=== PATIENT | female | born 1960 | race Caucasian/White ===

== ENCOUNTER 2017-03-12 06:06 | Inpatient (IN) ==
[2017-03-12] MEDS ORDERED: Albuterol 2.5 MG/3 ML NEBULIZER IH ONE (06:26)
[2017-03-12] MEDS ORDERED: cefOXitin 2,000 MG in Water for inj. (sterile) 10 ML IVP ONE (06:26)
[2017-03-12] MEDS ORDERED: Lidocaine -MPF 1% 2 ML VIAL ID ONE (06:26)
[2017-03-12] MEDS ORDERED: Ringers Solution, Lactated 1,000 ML IVC SCH (06:30)
--- NOTE | 2017-03-12 07:11 | Anesthesia Evaluation PreOp ---
Date of Encounter: 03/12/17 Time of Encounter: 07:10 - Past History Planned Operation: LAR with colostomy vs primary anastomosis Cardiac History: AL, HTN, Hyperlipidemia, Cardiac Stent (2004, 2005) Pulmonary History: Smoker Other Medical History: Diabetes Type II, Other (Newly diagnosed rectal cancer, started neoadjuvant therapy (chemo), psoariasis) Anesthesia History: No Prior Anesthetic Complications, Past Anesthesia (Several) Alcohol Use: none Drug use: none Medications and Allergies Aspirin 81 mg PO DAILY 10/22/16 [History] Cholecalciferol (D-3) [Vitamin D] 1,000 unit PO DAILY 10/22/16 [History] Clopidogrel [Plavix] 75 mg PO DAILY 10/22/16 [History] Duloxetine HCl [Cymbalta] 120 mg PO DAILY 10/22/16 [History] Gabapentin [Neurontin] 600 mg PO HS 10/22/16 [History] Insulin Glargine,Hum.rec.anlog [Lantus Solostar] 40 unit SQ HS PRN 10/22/16 [ History] Losartan Potassium [Cozaar] 50 mg PO DAILY 10/22/16 [History] Metformin HCl [Metformin HCl ER] 1,000 mg PO BID 10/22/16 [History] Simvastatin [Zocor] 40 mg PO HS 10/22/16 [History] Exenatide [Byetta] 5 mcg SQ BID 01/22/17 [History] 3 Allergy/AdvReac Type Severity Reaction Status Date / Time diphenhydramine Allergy Itching Verified 03/12/17 06:26 [From Benadryl] - Meds/Allergy Pre-op Review Medications Reviewed: Yes Allergies Reviewed: Yes Beta Blockers on Current Med List: No Anesthesia Results - Labs Laboratory Tests 02/15/17 02/15/17 03/04/17 14:09 14:09 16:05 Hgb 13.4 Hct 39.2 Plt Count 200 Sodium 140 Potassium 4.1 Creatinine 0.76 Hemoglobin A1c 7.9 H Calcium 9.4 - Imaging EKG: report reviewed (SINUS RHYTHM PROBABLE INFERIOR MYOCARDIAL INFARCTION, OF INDETERMINATE AGE) Additional studies: Stress test 05/2011: Inferolateral fixed defect, mild reversible anterior ischemia, gated EF 69% Heart Cath 05/2011: EF: 60% LM: 20% LAD: proximal 40%, proximal stent 40% ISS, mid stent patent CX: 30% RCA: Dominant, 30%, 40%, distal stent 30% ISS. PAV 80% Anesthesia Exam Vital Signs/O2 Sat/Glucose, Most Recent Temp Pulse Resp BP Pulse Ox 97.9 F 81 18 138/80 100 03/12/17 06:27 03/12/17 06:27 03/12/17 06:27 03/12/17 06:27 03/12/17 06:27 Blood Glucose* 183 Height: 66 in Weight: 80 Kg BMI 28 NPO (# of Hours): >8 - HEENT Mallampati: I Teeth: Normal Denture Type: Upper: Complete Oral Opening: Greater than 3 - Cardiac Rhythm: Regular - Pulmonary Breath Sounds: bilateral Clear Anesthesia Assess/Plan ASA Score: 4 Modified Fabiola Scale for Level of Consciousness: Cooperative, oriented, and tranquil Anesthetic Plan: General Monitoring Plan: Standard Monitors, A-Line, CVC (Possible) Recovery Plan: PACU Anes Supervising Prov Stmt: I have participated in the evaluation of this patient. Patient informed and consented. Risks, benefits, and alternatives discussed. Patient wishes to proceed.
[2017-03-12] MEDS ORDERED: *HR* Succinylcholine 200 MG/10 ML VIAL IVP ONE (07:15)
[2017-03-12] MEDS ORDERED: Ondansetron 4 MG/2 ML VIAL ONE (07:15)
[2017-03-12] MEDS ORDERED: *HR* Rocuronium Bromide 50 MG/5 ML VIAL ONE (07:15)
[2017-03-12] MEDS ORDERED: Dexamethasone 4 MG/ML VIAL ONE (07:15)
[2017-03-12] MEDS ORDERED: Lidocaine -MPF 4% 5 ML AMPUL ONE (07:15)
[2017-03-12] MEDS ORDERED: Lidocaine -MPF 2% 2 ML VIAL ONE (07:15)
[2017-03-12] MEDS ORDERED: *HR* Propofol 200 MG/20 ML VIAL IVP ONE (07:17)
[2017-03-12] MEDS ORDERED: *HR* FentaNYL (PF) 100 MCG/2 ML VIAL ONE (07:17)
[2017-03-12] MEDS ORDERED: *HR* Remifentanil 2 MG VIAL IVP ONE (07:17)
[2017-03-12] MEDS ORDERED: *HR* Midazolam HCl 2 MG/2 ML VIAL ONE (07:20)
[2017-03-12] MEDS ORDERED: Heparin 1,000 UNITS/500 mL NS 500 ML ONE (07:35)
--- NOTE | 2017-03-12 07:52 | History & Physical Report ---
Date of Encounter: 03/12/17 Time of Encounter: 07:52 24 Hour HP Update - Instructions Instructions: If the History and Physical is less than 30 days old and was completed prior to A.M. admission and or procedure and has NOT been updated on calendar day of procedure please complete this update prior to performing procedure. - Update Patient reports changes in Medical Condition: No Changes in examination, assessment, or condition: No Changes in Medication: No Preop tests/diagnostics Reviewed: Yes Surgery Remains Indicated: Yes Consent for Planned Operative Procedure(s) Verified: Yes - Pre-Operative Checklist Preoperative Checklist Indicated: Yes Prophylactic Antibiotic Ordered: Yes Home Medications Include Beta Jess: No
[2017-03-12] MEDS ORDERED: Ondansetron 4 MG/2 ML VIAL IVP ONE (09:24)
[2017-03-12] MEDS ORDERED: *HR* HYDROmorphone (PF) 1 MG/ML SYRINGE IVP PRN (09:24)
[2017-03-12] MEDS ORDERED: *HR* Promethazine 25 MG/ML VIAL IVP PRN (09:24)
[2017-03-12] MEDS ORDERED: *HR* HYDROmorphone 2 MG/ML SYRINGE ONE (10:44)
[2017-03-12] MEDS ORDERED: *HR* Phenylephrine 10 MG/ML VIAL ONE (10:44)
[2017-03-12] MEDS ORDERED: Neostigmine Methylsulfate 3 MG/3 ML SYRINGE ONE (12:03)
--- NOTE | 2017-03-12 12:06 | Operative Note ---
Date of procedure: 03/12/17 Pre-op diagnosis: Rectal Cancer Post-op diagnosis: same Procedure: Robotic rectal resection with diverting loop ileostomy Anesthesia: LIVAN (stephany) Surgeon: Duong Akers Estimated blood loss (cc): 5 Specimen: rectum Condition: stable Procedure in Detail: After informed consent, patient taken operating room placed supine position. After adequate sedation anesthesia patient was placed in a lithotomy position. After proper timeout a 12 mm cannula site was placed right superior to the umbilicus. Pneumoperitoneum was greater. A 13 mm cannula was placed in right lower quadrant. 5 mm camera was placed in the right upper quadrant. An 8 mm cannula was placed in subxiphoid region followed by another 8 mm in the left lower quadrant. Patient was placed in a headdown position. The robot was docked over the patient's left hip. Small bowel swept out of the pelvis. Rectosigmoid colon was then grasped and retracted cephalad. The peritoneum was then scored level of the sacral promontory. The left ureter was identified and kept on harm's way. The inferior mesenteric artery was then taken with a vessel sealer. The lateral rectosigmoid stalks were taken down the vessel sealer. The dissection was carried out down to the pelvic floor. The pelvic floor musculature was easily visualized. Rectosigmoid colon was dissected free from the retro-pubic tubercle region and the seminal vesicles were kept out of harm's way. Once it was freed a 45 mm robotic Endo staplers fired across the rectum. Once it was retracted and area was demarcated on the rectosigmoid sigmoid colon for transection. Indocyanine green was infused and we had excellent perfusion. A counterincision was made in the suprapubic region. Dissection carried down the anterior rectus sheath. The rectus muscles were then divided in the midline with Ada clamp. Once they were split the rectum and mesorectum were delivered. Good bowel clamps are used to place across the colon proximal and distal and transected. Allis clamps are placed on the bowel and then a pursestring suture device placed on the colon. 3-0 Prolene suture was passed. A pursestring sutures and created and a 33 mm EEA anvil was placed. Suture was tied and secured. Colon was then placed back in the pelvis. The stapler was passed through the anal canal and to the rectal stump and then the spear was placed through the staple line. The anvil was then connected secured and fired. There were 2 excellent donuts. A leak test revealed no leak. The distal termial ileum was brought to the right lower quadrant and a loop ileostomy was created. It was sewn to the skin with 3-0 vicryl. At that point the procedure was terminated. All incisions are closed with 0 Vicryl suture and 4-0 Vicryl suture. Marcaine was inserted in the Pfannenstiel incision. He tolerated the procedure well.
[2017-03-12] MEDS ORDERED: *HR* Dextrose 50 % in Water (Syg) 50 ML SYRINGE IVP PRN (13:33)
[2017-03-12] MEDS ORDERED: *HR* HYDROmorphone 20 MG/20 ML PCA IVC PRN (13:33)
[2017-03-12] MEDS ORDERED: Naloxone 0.4 MG/ML INJ IVP PRN (13:33)
[2017-03-12] MEDS ORDERED: Acetaminophen 325 MG TABLET PO PRN (13:33)
[2017-03-12] MEDS ORDERED: D5% in Water 1,000 ML IVC PRN (13:33)
[2017-03-12] MEDS ORDERED: Dextrose Gel 15 GM PO PRN ×2 (13:33)
[2017-03-12] MEDS ORDERED: *HR* Metoprolol 5 MG/5 ML VIAL IVP PRN (13:49)
[2017-03-12] MEDS: 0.9 % Sodium Chloride 1,000 ML IVC SCH (14:15)
[2017-03-12] MEDS: Insulin LISPRO 300 UNITS/3 ML VIAL SQ SCH ×2 (16:47→22:01)
[2017-03-12] MEDS: *HR* Metformin 500 MG TABLET PO SCH (16:53)
[2017-03-12] MEDS: Gabapentin 300 MG CAPSULE PO SCH (21:45)
[2017-03-13] MEDS: 0.9 % Sodium Chloride 1,000 ML IVC SCH (05:00)
[2017-03-13 05:56] LABS: Basophils % 0.2 %; Eosinophils % 0.1 %; Hematocrit 36.9 % (35.3-44.9); Hemoglobin 12.4 g/dL (11.5-15.4); Immature Granulocytes % 0.3 % (0-4); Lymphocytes # 0.5 K/mcL (0.6-4.6); Lymphocytes % 4.6 %; Mean Corpuscular HGB Conc 33.6 g/dL (31.6-35.5); Mean Corpuscular Hemoglobin 30.6 pg (28.0-33.3); Mean Corpuscular Volume 91.1 fL (83.0-100.0); Monocytes % 9.4 %; Platelet Count 216 K/mcL (140-400); Red Blood Count 4.05 M/mcL (3.82-4.97); Red Cell Distribution Width 13.6 % (11.5-14.5); Segmented Neutrophils % 85.4 %
[2017-03-13 06:14] LABS: BUN/Creatinine Ratio 12 (6-26); Blood Urea Nitrogen 12 mg/dL (7-20); Calcium 8.4 mg/dL (8.6-10.8); Carbon Dioxide 19 mEq/L (19-29); Chloride 110 mEq/L (98-109); Glucose 228 mg/dL (70-99); Osmolality,Calculated 295 (280-300); Potassium 3.9 mEq/L (3.5-4.5); Sodium 139 mEq/L (136-145); eGFR For African Americans > 60 (> 60); eGFR For Non-African Americans 59 (> 60)
[2017-03-13] MEDS: *HR* Metformin 500 MG TABLET PO SCH ×2 (09:01→16:32)
[2017-03-13] MEDS: Aspirin 81 MG TAB.CHEW PO SCH (09:01)
[2017-03-13] MEDS: Insulin LISPRO 300 UNITS/3 ML VIAL SQ SCH ×4 (09:06→21:48)
--- NOTE | 2017-03-13 11:20 | General Surgery Progress Note ---
Date of Encounter: 03/13/17 Time of Encounter: 11:18 - Assessment and Plan (1) Rectal cancer Current Visit: Yes Status: Acute POD1 from a robot assisted LAR with diverting loop ileostomy. Awaiting return of bowel function. On clears-continue for now. OOB to chair. Subjective Patient reports: other (The patient admits to some abdominal pain. No current nausea. Tolerating clears. ) Objective Vital Signs - Last 8 Hours Temp Pulse Resp BP Pulse Ox 03/13/17 07:38 98.5 F 96 16 160/81 97 Intake and Output 03/12/17 03/13/17 03/13/17 23:59 07:59 15:59 Intake Total 0 / 0 1000 / 1000 Output Total 400 / 400 600 / 600 Balance -400 / -400 400 / 400 Intake: IV Fluids 1000 / 1000 0.9 % Sodium Chloride 1,000 ML 1000 / 1000 @ 75 mls/hr IVC .[id number] [facility] Rx #:[id number] Oral 0 / 0 0 / 0 Output: Catheter 400 / 400 600 / 600 Other: Weight 79.515 kg Blood Glucose* 264 230 Patient Weight 03/13/17 23:59 Weight 79.515 kg - General physical appearance no distress - Abdomen Abdomen: Present: bowel sounds present (Minimal-scant. Right sided diverting loop ileostomy in place. No air or fluid present.), soft - Labs 03/13/17 05:46 03/13/17 05:46 Diabetes panel 03/13/17 Range/Units 05:46 Sodium 139 (136-145) mEq/L Potassium 3.9 (3.5-4.5) mEq/L Chloride 110 H (98-109) mEq/L Carbon Dioxide 19 (19-29) mEq/L BUN 12 (7-20) mg/dL Creatinine 0.98 (0.57-1.11) mg/dL Glucose 228 H (70-99) mg/dL Calcium 8.4 L (8.6-10.8) mg/dL Calcium panel 03/13/17 Range/Units 05:46 Calcium 8.4 L (8.6-10.8) mg/dL Pituitary panel 03/13/17 Range/Units 05:46 Sodium 139 (136-145) mEq/L Potassium 3.9 (3.5-4.5) mEq/L Chloride 110 H (98-109) mEq/L Carbon Dioxide 19 (19-29) mEq/L BUN 12 (7-20) mg/dL Creatinine 0.98 (0.57-1.11) mg/dL Glucose 228 H (70-99) mg/dL Calcium 8.4 L (8.6-10.8) mg/dL Adrenal panel 03/13/17 Range/Units 05:46 Sodium 139 (136-145) mEq/L Potassium 3.9 (3.5-4.5) mEq/L Chloride 110 H (98-109) mEq/L Carbon Dioxide 19 (19-29) mEq/L BUN 12 (7-20) mg/dL Creatinine 0.98 (0.57-1.11) mg/dL Glucose 228 H (70-99) mg/dL Calcium 8.4 L (8.6-10.8) mg/dL - VTE Documentation of Mechanical Device: Intermittent pneumatic compression device Consult Discharge Plan - Plan Referrals: Duong Akers DO [Partnered Physician] - 03/23/17 1:25 pm Heaven Cho DO [Primary Care Provider] -
[2017-03-13] MEDS: Gabapentin 300 MG CAPSULE PO SCH (21:48)
[2017-03-14] MEDS: Aspirin 81 MG TAB.CHEW PO SCH (07:56)
[2017-03-14] MEDS: *HR* Metformin 500 MG TABLET PO SCH ×2 (07:56→16:59)
[2017-03-14] MEDS: 0.9 % Sodium Chloride 1,000 ML IVC SCH ×2 (09:56)
[2017-03-14] MEDS: Insulin LISPRO 300 UNITS/3 ML VIAL SQ SCH ×4 (12:21→21:12)
--- NOTE | 2017-03-14 13:48 | General Surgery Progress Note ---
Date of Encounter: 03/14/17 Time of Encounter: 13:46 - Assessment and Plan (1) Rectal cancer Current Visit: Yes Status: Acute POD2 from a robot sigmoid colectomy with loop ileostomy. Advanced to full liquids. Will start dressing changes today as well. Continue up and out of bed to chair. Subjective Patient reports: no new complaints (Patient sitting up tolerating PO liquids. Noted leak from ostomy appliance.) Objective Vital Signs - Last 8 Hours Temp Pulse Resp BP Pulse Ox 03/14/17 12:04 98.3 F 100 16 133/65 93 03/14/17 08:17 99.3 F 103 18 162/80 97 Intake and Output 03/13/17 03/14/17 03/14/17 23:59 07:59 15:59 Intake Total 1000 / 1000 Output Total 700 / 700 550 / 550 300 / 300 Balance -700 / -700 -550 / -550 700 / 700 Intake: IV Fluids 1000 / 1000 0.9 % Sodium Chloride 1,000 ML 1000 / 1000 @ 75 mls/hr IVC .[id number] [facility] Rx #:[id number] Output: Urine 700 / 700 550 / 550 300 / 300 Other: Weight 80.9 kg Blood Glucose* 208 342 Patient Weight 03/14/17 23:59 Weight 80.9 kg - General physical appearance well nourished, no distress - Respiratory normal expansion, normal respiratory effort - Abdomen Abdomen: Present: soft, tender (Mild incisional pain to palpation. Incisions CDI. No erythema. Ostomy appliance with mild leak on the medial side. Ostomy appears pink.) - Labs 03/13/17 05:46 03/13/17 05:46 - VTE Documentation of Mechanical Device: Intermittent pneumatic compression device Consult Discharge Plan - Plan Referrals: Duong Akers DO [Partnered Physician] - 03/23/17 1:25 pm Heaven Cho DO [Primary Care Provider] -
[2017-03-14] MEDS: Gabapentin 300 MG CAPSULE PO SCH (21:12)
[2017-03-14] MEDS ORDERED: 0.9 % Sodium Chloride 500 ML ONE (23:27)
[2017-03-15] MEDS: Insulin LISPRO 300 UNITS/3 ML VIAL SQ SCH ×4 (07:52→21:15)
[2017-03-15] MEDS: Aspirin 81 MG TAB.CHEW PO SCH (07:53)
[2017-03-15] MEDS: *HR* Metformin 500 MG TABLET PO SCH ×2 (07:53→16:18)
[2017-03-15] MEDS ORDERED: *HR* HYDROmorphone 2 MG/ML SYRINGE IVP PRN (13:50)
[2017-03-15] MEDS ORDERED: *HR* OxyCODONE/APAP 10/325 TABLET PO PRN (13:50)
--- NOTE | 2017-03-15 13:55 | General Surgery Progress Note ---
Date of Encounter: 03/15/17 Time of Encounter: 13:15 - Assessment and Plan (1) Rectal cancer Current Visit: Yes Status: Acute Date of procedure: 03/12/17 Pre-op diagnosis: Rectal Cancer Post-op diagnosis: same Procedure: Robotic rectal resection with diverting loop ileostomy POD # 3 as above. No output noted from ileostomy. Abdomen is slightly distended , but she denies nausea. Discomfort is well controlled. Noted overnight she was having difficulty urinating. Modi replaced. Plan: 1. Add full liquid diet 2. Repeat labs 3. Obtain an acute abdominal series 4. stop BOX SPINNER and start PO/PRN pain meds 5. Increase IVF to 75 ml as urine in modi is concentrated; may consider bolus and/or flomax pending lab results 6. Add Reglan 7. Add colace 8. Continue GI and DVT prophylaxis 9. Consult wound care for new ostomy teaching 10. Patient may shower (2) DVT prophylaxis Current Visit: Yes Status: Acute heparin 5000 units SQ daily EPCDs while in bed Ambulate in halls TID Subjective Patient reports: no new complaints, feels better, still having pain, pain is less, tolerating liquids well, voiding w/o difficulty (per modi. ), no flatus, no bowel movement, afebrile Objective Vital Signs - Last 8 Hours Temp Pulse Resp BP Pulse Ox 03/15/17 10:52 97.7 F 102 16 137/80 95 03/15/17 08:30 94 03/15/17 07:54 98.2 F 102 16 132/76 94 Intake and Output 03/14/17 03/15/17 03/15/17 23:59 07:59 15:59 Intake Total 1000 / 1000 200 / 200 240 / 240 Output Total 0 / 0 700 / 700 150 / 150 Balance 1000 / 1000 -500 / -500 90 / 90 Intake: IV Fluids 1000 / 1000 200 / 200 0.9 % Sodium Chloride 500 ML As 200 / 200 .ROUTE .[facility]K-[facility] Rx#: [id number] 0.9 % Sodium Chloride 1,000 ML 1000 / 1000 @ 75 mls/hr IVC .[id number] [facility] Rx #:[id number] Oral 0 / 0 240 / 240 Output: Urine 0 / 0 600 / 600 Urethral (Modi) 350 / 350 Stool 0 / 0 0 / 0 Catheter 100 / 100 150 / 150 Other: Meal Dinner Lunch Percent of Meal Consumed 0% Weight 80.9 kg Blood Glucose* 232 322 168 Patient Weight 03/15/17 23:59 Weight 80.9 kg - General physical appearance no distress - Eyes normal ocular movement - ENT atraumatic, normocephalic - Neck Neck exam: trachea midline, no venous distension - Respiratory normal expansion, normal respiratory effort, clear to auscultation - Cardiovascular Cardiovascular exam: Present: tachycardia - Abdomen Abdomen: Present: bowel sounds present, soft, tender (Expected postoperative), wound (Stoma is pink and moist) Hernia: none - Incision Incision: Present: clean and dry, intact - Neurologic normal coordination, normal sensation - Musculoskeletal normal gait, normal posture - Psychiatric oriented to time, oriented to person, oriented to place, speech is normal, memory intact - Labs 03/13/17 05:46 03/13/17 05:46 - VTE Documentation of Mechanical Device: Intermittent pneumatic compression device Consult Discharge Plan - Plan Referrals: Duong Akers DO [Partnered Physician] - 03/23/17 1:25 pm Heaven Cho DO [Primary Care Provider] -
[2017-03-15] MEDS: Metoclopramide 10 MG/2 ML VIAL IVP SCH ×2 (13:59→21:17)
[2017-03-15] MEDS: 0.9 % Sodium Chloride 1,000 ML IVC SCH (14:01)
[2017-03-15 14:31] LABS: Basophils # 0.1 K/mcL (0.0-0.2); Basophils % 0.5 %; Eosinophils # 0.4 K/mcL (0.0-0.6); Eosinophils % 3.3 %; Hematocrit 39.7 % (35.3-44.9); Hemoglobin 13.1 g/dL (11.5-15.4); Immature Granulocytes % 0.4 % (0-4); Lymphocytes # 0.6 K/mcL (0.6-4.6); Lymphocytes % 5.7 %; Mean Corpuscular Volume 90.8 fL (83.0-100.0); Mean Platelet Volume 11.4 fL (9.4-12.4); Monocytes % 8.7 %; Neutrophils # 8.9 K/mcL (1.6-8.9); Platelet Count 260 K/mcL (140-400); Red Blood Count 4.37 M/mcL (3.82-4.97); Red Cell Distribution Width 13.5 % (11.5-14.5); Segmented Neutrophils % 81.4 %
[2017-03-15 14:34] LABS: Alanine Aminotransferase 9 Units/L (0-55); Albumin 2.3 g/dL (3.5-5.0); Albumin/Globulin Ratio 0.6 (1.1-2.2); Alkaline Phosphatase 66 Units/L (38-126); Aspartate Amino Transferase 8 Units/L (5-34); BUN/Creatinine Ratio 15 (6-26); Bilirubin,Total 0.4 mg/dL (0.2-1.2); Blood Urea Nitrogen 13 mg/dL (7-20); Calcium 8.8 mg/dL (8.6-10.8); Carbon Dioxide 19 mEq/L (19-29); Chloride 106 mEq/L (98-109); Globulin 3.9 g/dL (2.4-3.5); Glucose 197 mg/dL (70-99); Osmolality,Calculated 286 (280-300); Potassium 3.9 mEq/L (3.5-4.5); Sodium 135 mEq/L (136-145); Total Protein 6.2 g/dL (6.0-8.3); eGFR For African Americans > 60 (> 60); eGFR For Non-African Americans > 60 (> 60)
[2017-03-15] MEDS ORDERED: Lidocaine Jelly 11 ml Syringe TP STA (15:25)
[2017-03-15] MEDS ORDERED: Chloraseptic Spray 177 ML BOTTLE MM PRN (15:45)
[2017-03-15] MEDS: Acetaminophen IV 1,000 MG/100 ML INFUS..BTL IVPB SCH ×2 (16:14→21:08)
[2017-03-15 16:32] LABS: Bilirubin,Urine Small (Negative); Blood,Urine Negative (Negative); Clarity,Urine Turbid (Clear); Color,Urine Dark Yellow (Yellow); Glucose,Urine (UA) 500 mg/dL (Normal); Ketones,Urine 15 mg/dL (Negative); Leukocyte Esterase,Urine Negative (Negative); Nitrite,Urine Negative (Negative); PH,Urine 5.5 pH Units (5.0-8.0); Protein,Urine 100 mg/dL (Neg-Trace); Specific Gravity,Urine > 1.030 (1.010-1.025); Urobilinogen,Urine Normal (Normal)
[2017-03-15 16:49] LABS: Granular Casts,Urine Moderate per lpf (None Seen); Squamous Epithelial Cell,Urine Few per lpf (None-Few)
[2017-03-15 16:50] LABS: Amorphous Sediment,Urine Many (Few); Hyaline Casts,Urine Few per lpf (None-Few)
[2017-03-15 17:05] LABS: RBC,Urine 0-3 per hpf (0-3); WBC,Urine 0-3 per hpf (0-3)
[2017-03-15 17:22] LABS: Magnesium 1.5 mg/dL (1.6-2.6); Phosphorous 2.5 mg/dL (2.3-4.7)
[2017-03-15] MEDS: *HR* Heparin 5,000 UNIT/ML VIAL SQ SCH (17:31)
[2017-03-15] MEDS: Ketorolac 15 MG/ML VIAL IVP SCH (17:32)
[2017-03-15] MEDS: Gabapentin 300 MG CAPSULE PO SCH (21:28)
[2017-03-16] MEDS: Ketorolac 15 MG/ML VIAL IVP SCH ×4 (00:02→17:27)
[2017-03-16] MEDS: 0.9 % Sodium Chloride 1,000 ML IVC SCH ×2 (04:05→12:06)
[2017-03-16] MEDS: Acetaminophen IV 1,000 MG/100 ML INFUS..BTL IVPB SCH ×4 (04:09→23:45)
[2017-03-16 05:14] LABS: Basophils % 0.3 %; Eosinophils # 0.4 K/mcL (0.0-0.6); Eosinophils % 4.9 %; Hematocrit 34.7 % (35.3-44.9); Immature Granulocytes % 1.1 % (0-4); Immature Platelets 8.2 % (1.1-6.1); Lymphocytes # 0.5 K/mcL (0.6-4.6); Lymphocytes % 6.2 %; Mean Corpuscular HGB Conc 32.6 g/dL (31.6-35.5); Mean Corpuscular Hemoglobin 30.1 pg (28.0-33.3); Mean Corpuscular Volume 92.3 fL (83.0-100.0); Mean Platelet Volume 11.2 fL (9.4-12.4); Monocytes # 0.6 K/mcL (0.0-1.3); Monocytes % 8.2 %; Neutrophils # 5.9 K/mcL (1.6-8.9); Platelet Count 221 K/mcL (140-400); Red Blood Count 3.76 M/mcL (3.82-4.97); Red Cell Distribution Width 13.5 % (11.5-14.5); Segmented Neutrophils % 79.3 %
[2017-03-16 05:15] LABS: Hemoglobin 11.3 g/dL (11.5-15.4)
[2017-03-16 05:19] LABS: BUN/Creatinine Ratio 18 (6-26); Blood Urea Nitrogen 15 mg/dL (7-20); Calcium 8.5 mg/dL (8.6-10.8); Carbon Dioxide 19 mEq/L (19-29); Chloride 109 mEq/L (98-109); Glucose 164 mg/dL (70-99); Magnesium 1.5 mg/dL (1.6-2.6); Osmolality,Calculated 286 (280-300); Phosphorous 2.7 mg/dL (2.3-4.7); Potassium 3.8 mEq/L (3.5-4.5); Sodium 136 mEq/L (136-145); eGFR For African Americans > 60 (> 60); eGFR For Non-African Americans > 60 (> 60)
[2017-03-16] MEDS: *HR* Heparin 5,000 UNIT/ML VIAL SQ SCH ×2 (05:28→17:26)
[2017-03-16] MEDS: Metoclopramide 10 MG/2 ML VIAL IVP SCH ×2 (05:28→14:26)
[2017-03-16] MEDS: *HR* Metformin 500 MG TABLET PO SCH ×2 (07:47→16:26)
[2017-03-16] MEDS: Insulin LISPRO 300 UNITS/3 ML VIAL SQ SCH ×3 (07:47→16:22)
[2017-03-16] MEDS: Aspirin 81 MG TAB.CHEW PO SCH (07:48)
[2017-03-16] MEDS ORDERED: Lidocaine -MPF 1% 5 ML AMPUL INFILT ONE (11:46)
--- NOTE | 2017-03-16 11:53 | General Surgery Progress Note ---
Date of Encounter: 03/16/17 Time of Encounter: 11:30 - Assessment and Plan (1) Rectal cancer Current Visit: Yes Status: Acute POD #4 Robotic rectal resection with diverting loop ileostomy with Dr. Akers Pathology pending NPO while awaiting return of bowel function (suspect the patient has a post- operative ileus) NG tube to LIWS (placed 03/15/17) IV fluids- total fluid rate 100ml/hour (MIV + TPN) PICC line and start TPN today Glass Bender consulted for start and management of TPN Continue modi catheter for strict I&Os PPI therapy daily IS every 1 hour while awake Out of bed to chair TID and ambulate hallways with assistance Supportive care and pain control (2) Ileus, postoperative Current Visit: Yes Status: Acute NPO NG tube to LIWS IV fluids PICC line and TPN Reglan every 6 hours for the next 48 hours (3) DVT prophylaxis Current Visit: Yes Status: Acute Heparin 5,000 units SQ twice daily for DVT prophylaxis Ambulate hallways TID with assistance Subjective Patient reports: no new complaints, still having pain, no flatus, no bowel movement, afebrile, other (complaint of sore throat) Objective Vital Signs - Last 8 Hours Temp Pulse Resp BP Pulse Ox 03/16/17 11:00 97.9 F 91 17 149/78 96 03/16/17 06:32 97.8 F 78 16 128/68 97 Intake and Output 03/15/17 03/16/17 03/16/17 23:59 07:59 15:59 Intake Total 430 / 430 1146 / 1146 100 / 100 Output Total 600 / 600 400 / 400 250 / 250 Balance -170 / -170 746 / 746 -150 / -150 Intake: IV Fluids 430 / 430 1146 / 1146 100 / 100 0.9 % Sodium Chloride 1,000 ML 230 / 230 1046 / 1046 @ 75 mls/hr IVC .[id number] [facility] Rx #:[id number] Ofirmev 1,000 mg/100 ml 1,000 200 / 200 100 / 100 100 / 100 mg In 100 ml @ 400 mls/hr IVPB Q6H [facility] Rx#:[id number] Oral 0 / 0 0 / 0 0 / 0 Output: Stool 0 / 0 0 / 0 0 / 0 Catheter 200 / 200 250 / 250 100 / 100 Gastric Drainage 400 / 400 150 / 150 150 / 150 Other: Meal NPO Dinner Breakfast NPO Weight 80.603 kg Blood Glucose* 160 149 166 Patient Weight 03/16/17 23:59 Weight 80.603 kg - General physical appearance well developed, well nourished, no distress - Eyes normal ocular movement - ENT dry mucosa, atraumatic, normocephalic - Neck Neck exam: trachea midline - Respiratory normal respiratory effort, clear to auscultation - Cardiovascular Cardiovascular exam: Present: RRR - Abdomen Abdomen: Present: soft, distended (improved ), tender (expected post-operative tenderness), wound (NG tube to LIWS (700ml in the past 24 hours)) - Incision Incision: Present: clean and dry, intact - Genitourinary other (modi catheter to SD with cortez, yellow urine noted) - Neurologic CN 2-12 grossly intact - Psychiatric oriented to time, oriented to person, oriented to place, speech is normal, memory intact - Labs 03/16/17 04:55 03/16/17 04:55 Diabetes panel 03/15/17 03/16/17 Range/Units 13:58 04:55 Sodium 135 L 136 (136-145) mEq/L Potassium 3.9 3.8 (3.5-4.5) mEq/L Chloride 106 109 (98-109) mEq/L Carbon Dioxide 19 19 (19-29) mEq/L BUN 13 15 (7-20) mg/dL Creatinine 0.84 0.85 (0.57-1.11) mg/dL Glucose 197 H 164 H (70-99) mg/dL Calcium 8.8 8.5 L (8.6-10.8) mg/dL AST 8 (5-34) Units/L ALT 9 (0-55) Units/L Alkaline Phosphatase 66 (38-126) Units/L Albumin 2.3 L (3.5-5.0) g/dL Calcium panel 03/15/17 03/16/17 Range/Units 13:58 04:55 Calcium 8.8 8.5 L (8.6-10.8) mg/dL Phosphorus 2.5 2.7 (2.3-4.7) mg/dL Albumin 2.3 L (3.5-5.0) g/dL Pituitary panel 03/15/17 03/16/17 Range/Units 13:58 04:55 Sodium 135 L 136 (136-145) mEq/L Potassium 3.9 3.8 (3.5-4.5) mEq/L Chloride 106 109 (98-109) mEq/L Carbon Dioxide 19 19 (19-29) mEq/L BUN 13 15 (7-20) mg/dL Creatinine 0.84 0.85 (0.57-1.11) mg/dL Glucose 197 H 164 H (70-99) mg/dL Calcium 8.8 8.5 L (8.6-10.8) mg/dL Adrenal panel 03/15/17 03/16/17 Range/Units 13:58 04:55 Sodium 135 L 136 (136-145) mEq/L Potassium 3.9 3.8 (3.5-4.5) mEq/L Chloride 106 109 (98-109) mEq/L Carbon Dioxide 19 19 (19-29) mEq/L BUN 13 15 (7-20) mg/dL Creatinine 0.84 0.85 (0.57-1.11) mg/dL Glucose 197 H 164 H (70-99) mg/dL Calcium 8.8 8.5 L (8.6-10.8) mg/dL Total Bilirubin 0.4 (0.2-1.2) mg/dL AST 8 (5-34) Units/L ALT 9 (0-55) Units/L Alkaline Phosphatase 66 (38-126) Units/L Albumin 2.3 L (3.5-5.0) g/dL - VTE Documentation of Mechanical Device: Intermittent pneumatic compression device Consult Discharge Plan - Plan Referrals: Duong Akers DO [Partnered Physician] - 03/23/17 1:25 pm Heaven Cho DO [Primary Care Provider] - 03/29/17 4:00 pm - Attending Attestation For this encounter, I have reviewed the INDUSTRIAL GAS PRODUCTION OPERATOR or PA documentation, treatment plan, and medical decision making; and I have had face to face time with this patient.
[2017-03-16] MEDS ORDERED: D10% in Water 500 ML IVC PRN (12:09)
[2017-03-16] MEDS ORDERED: AMINO ACIDS 5 %/DEXTROSE 15 % 2,000 ML with MVI, adult with vitamin K 10 ML, Sodium A... IVC SCH (17:00)
[2017-03-16] MEDS: Gabapentin 300 MG CAPSULE PO SCH (22:33)
[2017-03-17] MEDS: Metoclopramide 10 MG/2 ML VIAL IVP SCH ×4 (01:22→17:51)
[2017-03-17] MEDS: 0.9 % Sodium Chloride 1,000 ML IVC SCH ×2 (01:27→15:12)
[2017-03-17] MEDS: Ketorolac 15 MG/ML VIAL IVP SCH ×4 (01:27→17:51)
[2017-03-17] MEDS: Insulin LISPRO 300 UNITS/3 ML VIAL SQ SCH ×6 (01:28→20:08)
[2017-03-17] MEDS: Acetaminophen IV 1,000 MG/100 ML INFUS..BTL IVPB SCH ×3 (04:30→15:18)
[2017-03-17 05:56] LABS: Magnesium 1.2 mg/dL (1.6-2.6); Phosphorous 2.6 mg/dL (2.3-4.7)
[2017-03-17] MEDS: *HR* Heparin 5,000 UNIT/ML VIAL SQ SCH ×2 (06:34→18:11)
--- NOTE | 2017-03-17 09:41 | General Surgery Progress Note ---
Date of Encounter: 03/17/17 Time of Encounter: 09:20 - Assessment and Plan (1) Rectal cancer Current Visit: Yes Status: Acute POD #5 Robotic rectal resection with diverting loop ileostomy with Dr. Akers Pathology pending NPO while awaiting return of bowel function (suspect the patient has a post- operative ileus) NG tube to LIWS (placed 03/15/17) Limit PO meds- D/C or converted most to IV administration IV fluids- total fluid rate 100ml/hour (MIV + TPN) Continue TPN Gastrograffin study via NG tube- 2 hour KUB (telecommunication tower technician notified) Dental Equipment Mechanic for management of TPN Remove modi catheter PPI therapy daily IS every 1 hour while awake Out of bed to chair TID and ambulate hallways with assistance Supportive care and pain control AM labs (2) Ileus, postoperative Current Visit: Yes Status: Acute NPO NG tube to LIWS IV fluids PICC line and TPN Reglan every 6 hours for the next 48 hours (3) Hyperglycemia Current Visit: Yes Status: Acute SSI every 4 hours- increased to high scale coverage Levemir 10units BID added to start now Remove Metformin Continue to monitor and adjust regimen as necessary (4) DVT prophylaxis Current Visit: Yes Status: Acute Heparin 5,000 units SQ twice daily for DVT prophylaxis Ambulate hallways TID with assistance Subjective Patient reports: no new complaints, feels better, still having pain, pain is less, no flatus, no bowel movement, afebrile Objective Vital Signs - Last 8 Hours Temp Pulse Resp BP Pulse Ox 03/17/17 09:02 98 03/17/17 08:06 98.4 F 75 18 153/93 98 03/17/17 04:13 98.4 F 82 16 157/76 98 Intake and Output 03/16/17 03/17/17 03/17/17 23:59 07:59 15:59 Intake Total 525 / 525 575 / 575 0 / 0 Output Total 200 / 200 350 / 350 850 / 850 Balance 325 / 325 225 / 225 -850 / -850 Intake: IV Fluids 525 / 525 575 / 575 0.9 % Sodium Chloride 1,000 ML 425 / 425 575 / 575 @ 100 mls/hr IVC .Q10H [facility] Rx#: [id number] Ofirmev 1,000 mg/100 ml 1,000 100 / 100 mg In 100 ml @ 400 mls/hr IVPB Q6H [facility] Rx#:[id number] Oral 0 / 0 0 / 0 0 / 0 Output: Stool 0 / 0 Catheter 200 / 200 350 / 350 400 / 400 Gastric Drainage 450 / 450 Other: Meal Dinner NPO Weight 81.3 kg Blood Glucose* 247 238 268 Patient Weight 03/17/17 23:59 Weight 81.3 kg - General physical appearance well developed, no distress - Eyes normal ocular movement - ENT dry mucosa, atraumatic, normocephalic - Neck Neck exam: trachea midline - Respiratory normal respiratory effort, clear to auscultation - Cardiovascular Cardiovascular exam: Present: RRR - Abdomen Abdomen: Present: soft, tender (expected post-operative tenderness), wound ( Ileostomy is pink and moist with no flatus or stool noted; NG tube to LIWS with small amount of bilious drainage noted (700ml over the past 48 hours)) - Incision Incision: Present: clean and dry, intact - Neurologic CN 2-12 grossly intact - Psychiatric oriented to time, oriented to person, oriented to place, speech is normal, memory intact - Labs 03/16/17 04:55 03/16/17 04:55 Diabetes panel 03/17/17 Range/Units 05:20 Triglycerides 165 H (< 150) mg/dL Calcium panel 03/17/17 Range/Units 05:20 Phosphorus 2.6 (2.3-4.7) mg/dL - VTE Documentation of Mechanical Device: Intermittent pneumatic compression device Consult Discharge Plan - Plan Referrals: Duong Akers DO [Partnered Physician] - 03/23/17 1:25 pm Heaven Cho DO [Primary Care Provider] - 03/29/17 4:00 pm - Attending Attestation For this encounter, I have reviewed the BRAIN WAVE TECHNICIAN or PA documentation, treatment plan, and medical decision making; and I have had face to face time with this patient.
[2017-03-17] MEDS: Aspirin 81 MG TAB.CHEW PO SCH (15:08)
[2017-03-17] MEDS: *HR* Metoprolol 5 MG/5 ML VIAL IVP SCH ×2 (15:11→17:52)
[2017-03-17] MEDS: Insulin DETEMIR 100 UNIT/ML X5UNITS SQ SCH ×2 (15:13→20:09)
[2017-03-17] MEDS ORDERED: AMINO ACIDS 5 %/DEXTROSE 15 % 2,000 ML with MVI, adult with vitamin K 10 ML, Sodium A... IVC SCH (17:00)
[2017-03-17] MEDS: Gabapentin 300 MG CAPSULE PO SCH (20:08)
[2017-03-18] MEDS: Ketorolac 15 MG/ML VIAL IVP SCH ×4 (00:11→17:55)
[2017-03-18] MEDS: Metoclopramide 10 MG/2 ML VIAL IVP SCH ×4 (00:11→17:53)
[2017-03-18] MEDS: *HR* Metoprolol 5 MG/5 ML VIAL IVP SCH ×4 (00:11→17:51)
[2017-03-18] MEDS: Insulin LISPRO 300 UNITS/3 ML VIAL SQ SCH ×6 (00:12→20:40)
[2017-03-18 04:52] LABS: Basophils % 0.3 %; Eosinophils # 0.3 K/mcL (0.0-0.6); Eosinophils % 4.4 %; Hematocrit 33.9 % (35.3-44.9); Hemoglobin 11.4 g/dL (11.5-15.4); Immature Granulocytes % 0.6 % (0-4); Immature Platelets 7.7 % (1.1-6.1); Lymphocytes # 0.4 K/mcL (0.6-4.6); Lymphocytes % 5.8 %; Mean Corpuscular HGB Conc 33.6 g/dL (31.6-35.5); Mean Corpuscular Hemoglobin 30.3 pg (28.0-33.3); Mean Corpuscular Volume 90.2 fL (83.0-100.0); Mean Platelet Volume 11.4 fL (9.4-12.4); Monocytes # 0.5 K/mcL (0.0-1.3); Monocytes % 7.4 %; Neutrophils # 5.9 K/mcL (1.6-8.9); Platelet Count 243 K/mcL (140-400); Red Blood Count 3.76 M/mcL (3.82-4.97); Red Cell Distribution Width 13.1 % (11.5-14.5); Segmented Neutrophils % 81.5 %
[2017-03-18 06:05] LABS: BUN/Creatinine Ratio 23 (6-26); Blood Urea Nitrogen 19 mg/dL (7-20); Calcium 9.2 mg/dL (8.6-10.8); Carbon Dioxide 24 mEq/L (19-29); Chloride 106 mEq/L (98-109); Glucose 216 mg/dL (70-99); Magnesium 1.7 mg/dL (1.6-2.6); Osmolality,Calculated 301 (280-300); Potassium 3.3 mEq/L (3.5-4.5); Sodium 141 mEq/L (136-145); eGFR For African Americans > 60 (> 60); eGFR For Non-African Americans > 60 (> 60)
[2017-03-18] MEDS: *HR* Heparin 5,000 UNIT/ML VIAL SQ SCH ×2 (06:25→18:22)
[2017-03-18] MEDS: Aspirin 81 MG TAB.CHEW PO SCH (08:10)
[2017-03-18] MEDS: Pantoprazole 40 MG VIAL IVP SCH (08:54)
[2017-03-18] MEDS: Insulin DETEMIR 100 UNIT/ML X5UNITS SQ SCH ×2 (08:54→20:41)
[2017-03-18 13:36] LABS: Bilirubin,Urine Negative (Negative); Blood,Urine Trace (Negative); Clarity,Urine Turbid (Clear); Color,Urine Dark Yellow (Yellow); Glucose,Urine (UA) >=1000 mg/dL (Normal); Ketones,Urine Negative (Negative); Leukocyte Esterase,Urine Negative (Negative); Nitrite,Urine Negative (Negative); Protein,Urine 30 mg/dL (Neg-Trace); Specific Gravity,Urine > 1.030 (1.010-1.025); Urobilinogen,Urine Normal (Normal)
[2017-03-18 13:39] LABS: Hyaline Casts,Urine None Seen per lpf (None-Few)
[2017-03-18 13:53] LABS: Squamous Epithelial Cell,Urine Few per lpf (None-Few)
[2017-03-18 13:54] LABS: Bacteria,Urine Few per hpf (None-Few)
[2017-03-18 13:55] LABS: Yeast,Urine Many per hpf (None Seen)
[2017-03-18] MEDS ORDERED: Potassium Chloride 40 MEQ, Lidocaine 1% 2 ML in D5% in Water 500 ML IVPB ONE (14:02)
--- NOTE | 2017-03-18 14:47 | General Surgery Progress Note ---
Date of Encounter: 03/18/17 Time of Encounter: 14:00 - Assessment and Plan (1) Rectal cancer Current Visit: Yes Status: Acute POD #6 Robotic rectal resection with diverting loop ileostomy with Dr. Akers Pathology reviewed with patient per Dr. 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 TPN PPI therapy daily IS every 1 hour while awake Out of bed to chair TID and ambulate hallways with assistance Supportive care and pain control AM labs- BMP (2) Ileus, postoperative Current Visit: Yes Status: Acute NPO NG tube to LIWS IV fluids PICC line and TPN Reglan every 6 hours for the next 48 hours (3) Hyperglycemia Current Visit: Yes Status: Acute SSI every 4 hours- increased to high scale coverage Levemir increase to 20units BID Remove Metformin Continue to monitor and adjust regimen as necessary (4) Urinary retention Current Visit: Yes Status: Acute Straight cath complete 1 this morning Complete bladder scan in 4-6 hours and if patient unable to void we will replace Campbell catheter (5) DVT prophylaxis Current Visit: Yes Status: Acute Heparin 5,000 units SQ twice daily for DVT prophylaxis Ambulate hallways TID with assistance Subjective Patient reports: no new complaints, still having pain, pain is less, no flatus, no bowel movement, afebrile, other (Urinary retention noted- straight cath X 1 this morning) Objective Vital Signs - Last 8 Hours Temp Pulse Resp BP Pulse Ox 03/18/17 11:59 97.4 F L 83 16 163/80 95 03/18/17 09:01 95 03/18/17 07:23 98.5 F 74 16 150/78 95 Intake and Output 03/17/17 03/18/17 03/18/17 23:59 07:59 15:59 Intake Total 0 / 0 250 / 250 Output Total 3200 / 3200 800 / 800 Balance -3200 / -3200 -550 / -550 Intake: IV Fluids 250 / 250 Intralipid 20% 250 ML @ 21 mls/ 250 / 250 hr IVPB DAILY@1700 [facility] Rx#: [id number] Oral 0 / 0 0 / 0 Output: Urine 0 / 0 0 / 0 Gastric Drainage 3200 / 3200 800 / 800 Other: Meal NPO NPO Weight 81.2 kg Blood Glucose* 206 209 239 Patient Weight 03/18/17 23:59 Weight 81.2 kg - General physical appearance well developed, well nourished, no distress - Eyes PERRL, normal ocular movement - ENT normal mucosa, atraumatic, normocephalic - Neck Neck exam: trachea midline - Respiratory normal respiratory effort, clear to auscultation - Cardiovascular Cardiovascular exam: Present: RRR - Abdomen Abdomen: Present: soft, distended (improving), tender (Expected postoperative tenderness), wound (Ileostomy is pink and moist with no flatus or stool noted; NG tube to low intermittent wall suction (1200ml noted since midnight)) - Incision Incision: Present: clean and dry, intact - Neurologic CN 2-12 grossly intact - Psychiatric oriented to time, oriented to person, oriented to place, speech is normal, memory intact - Labs 03/18/17 04:41 03/18/17 04:41 Diabetes panel 03/18/17 Range/Units 04:41 Sodium 141 (136-145) mEq/L Potassium 3.3 L (3.5-4.5) mEq/L Chloride 106 (98-109) mEq/L Carbon Dioxide 24 (19-29) mEq/L BUN 19 (7-20) mg/dL Creatinine 0.84 (0.57-1.11) mg/dL Glucose 216 H (70-99) mg/dL Calcium 9.2 (8.6-10.8) mg/dL Calcium panel 03/18/17 Range/Units 04:41 Calcium 9.2 (8.6-10.8) mg/dL Phosphorus 4.0 D (2.3-4.7) mg/dL Pituitary panel 03/18/17 Range/Units 04:41 Sodium 141 (136-145) mEq/L Potassium 3.3 L (3.5-4.5) mEq/L Chloride 106 (98-109) mEq/L Carbon Dioxide 24 (19-29) mEq/L BUN 19 (7-20) mg/dL Creatinine 0.84 (0.57-1.11) mg/dL Glucose 216 H (70-99) mg/dL Calcium 9.2 (8.6-10.8) mg/dL Adrenal panel 03/18/17 Range/Units 04:41 Sodium 141 (136-145) mEq/L Potassium 3.3 L (3.5-4.5) mEq/L Chloride 106 (98-109) mEq/L Carbon Dioxide 24 (19-29) mEq/L BUN 19 (7-20) mg/dL Creatinine 0.84 (0.57-1.11) mg/dL Glucose 216 H (70-99) mg/dL Calcium 9.2 (8.6-10.8) mg/dL - VTE Documentation of Mechanical Device: Intermittent pneumatic compression device Consult Discharge Plan - Plan Referrals: Duong Akers DO [Partnered Physician] - 03/23/17 1:25 pm Heaven Cho DO [Primary Care Provider] - 03/29/17 4:00 pm
[2017-03-18] MEDS ORDERED: VITAMIN K IVC SCH (17:00)
[2017-03-18] MEDS ORDERED: MVI IVC SCH (17:00)
[2017-03-18] MEDS ORDERED: AMINO ACIDS IVC SCH (17:00)
[2017-03-18] MEDS ORDERED: [UNRECOGNIZED DRUG - OTHER] IVC SCH (17:00)
[2017-03-18] MEDS ORDERED: DEXTROSE 15% IVC SCH (17:00)
[2017-03-18] MEDS: 0.9 % Sodium Chloride 1,000 ML IVC SCH (17:48)
[2017-03-18] MEDS: Gabapentin 300 MG CAPSULE PO SCH (20:22)
[2017-03-19] MEDS: Metoclopramide 10 MG/2 ML VIAL IVP SCH ×5 (00:22→23:44)
[2017-03-19] MEDS: Ketorolac 15 MG/ML VIAL IVP SCH ×5 (00:22→23:44)
[2017-03-19] MEDS: Insulin LISPRO 300 UNITS/3 ML VIAL SQ SCH ×7 (00:22→23:48)
[2017-03-19] MEDS: *HR* Metoprolol 5 MG/5 ML VIAL IVP SCH ×5 (00:22→23:45)
[2017-03-19] MEDS: *HR* Heparin 5,000 UNIT/ML VIAL SQ SCH ×2 (05:24→17:39)
[2017-03-19 06:03] LABS: BUN/Creatinine Ratio 27 (6-26); Blood Urea Nitrogen 23 mg/dL (7-20); Calcium 8.9 mg/dL (8.6-10.8); Carbon Dioxide 24 mEq/L (19-29); Chloride 105 mEq/L (98-109); Glucose 281 mg/dL (70-99); Magnesium 1.5 mg/dL (1.6-2.6); Osmolality,Calculated 300 (280-300); Phosphorous 3.7 mg/dL (2.3-4.7); Potassium 3.5 mEq/L (3.5-4.5); Sodium 138 mEq/L (136-145); eGFR For African Americans > 60 (> 60); eGFR For Non-African Americans > 60 (> 60)
[2017-03-19] MEDS: Aspirin 81 MG TAB.CHEW PO SCH (08:43)
[2017-03-19] MEDS: Pantoprazole 40 MG VIAL IVP SCH (08:43)
[2017-03-19] MEDS: Insulin DETEMIR 100 UNIT/ML X5UNITS SQ SCH ×2 (08:43→21:03)
--- NOTE | 2017-03-19 11:56 | General Surgery Progress Note ---
Date of Encounter: 03/19/17 Time of Encounter: 11:45 - Assessment and Plan (1) Rectal cancer Current Visit: Yes Status: Acute POD #7 Robotic rectal resection with diverting loop ileostomy with Dr. Akers Pathology reviewed with patient per Dr. Akers Plan for enteroscopy today with Dr. 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 Akers IV fluids PICC line and TPN Reglan every 6 hours (3) Hyperglycemia Current Visit: Yes Status: Acute SSI every 4 hours- increased to high scale coverage Levemir increase to 25units BID Continue to monitor and adjust regimen as necessary (4) Urinary retention Current Visit: Yes Status: Acute Replace modi catheter to SD Check UA C&S Flomax started 03/18/17 (5) DVT prophylaxis Current Visit: Yes Status: Acute Heparin 5,000 units SQ twice daily for DVT prophylaxis Ambulate hallways TID with assistance Subjective Patient reports: no new complaints, feels better, still having pain, pain is less, no flatus, no bowel movement, afebrile, other (Patient reports incontinence) Objective Vital Signs - Last 8 Hours Temp Pulse Resp BP Pulse Ox 03/19/17 10:35 97.6 F 73 16 159/84 99 03/19/17 07:41 98.4 F 74 16 131/76 96 03/19/17 04:05 98.6 F 83 15 134/64 94 Intake and Output 03/18/17 03/19/17 03/19/17 23:59 07:59 15:59 Intake Total 25 / 25 0 / 0 Output Total 100 / 100 0 / 0 450 / 450 Balance -75 / -75 0 / 0 -450 / -450 Intake: IV Fluids 25 / 25 0.9 % Sodium Chloride 1,000 ML 25 / 25 @ 100 mls/hr IVC .Q10H [facility] Rx#: [id number] Oral 0 / 0 0 / 0 Output: Urine 0 / 0 0 / 0 Gastric Tube Lavage Amount 100 / 100 Left Nare 100 / 100 Gastric Drainage 450 / 450 Other: Meal NPO NPO # Voids 1 Weight 77.14 kg Blood Glucose* 206 251 Patient Weight 03/19/17 23:59 Weight 77.14 kg - General physical appearance well developed, no distress - Eyes normal ocular movement - ENT normal mucosa, atraumatic, normocephalic - Neck Neck exam: trachea midline - Respiratory normal respiratory effort, clear to auscultation - Cardiovascular Cardiovascular exam: Present: RRR - Abdomen Abdomen: Present: soft, distended (mildly), tender (minimal, expected post- operative tenderness), wound (ileostomy is pink and moist with no flatus or stool noted; NG tube to LIWS with 450ml noted in the past 24 hours (bilious drainage)) - Incision Incision: Present: clean and dry, intact - Neurologic CN 2-12 grossly intact - Musculoskeletal normal gait, normal posture - Psychiatric oriented to time, oriented to person, oriented to place, speech is normal, memory intact - Labs 03/18/17 04:41 03/19/17 05:32 Diabetes panel 03/19/17 Range/Units 05:32 Sodium 138 (136-145) mEq/L Potassium 3.5 (3.5-4.5) mEq/L Chloride 105 (98-109) mEq/L Carbon Dioxide 24 (19-29) mEq/L BUN 23 H (7-20) mg/dL Creatinine 0.84 (0.57-1.11) mg/dL Glucose 281 H (70-99) mg/dL Calcium 8.9 (8.6-10.8) mg/dL Calcium panel 03/19/17 Range/Units 05:32 Calcium 8.9 (8.6-10.8) mg/dL Phosphorus 3.7 (2.3-4.7) mg/dL Pituitary panel 03/19/17 Range/Units 05:32 Sodium 138 (136-145) mEq/L Potassium 3.5 (3.5-4.5) mEq/L Chloride 105 (98-109) mEq/L Carbon Dioxide 24 (19-29) mEq/L BUN 23 H (7-20) mg/dL Creatinine 0.84 (0.57-1.11) mg/dL Glucose 281 H (70-99) mg/dL Calcium 8.9 (8.6-10.8) mg/dL Adrenal panel 03/19/17 Range/Units 05:32 Sodium 138 (136-145) mEq/L Potassium 3.5 (3.5-4.5) mEq/L Chloride 105 (98-109) mEq/L Carbon Dioxide 24 (19-29) mEq/L BUN 23 H (7-20) mg/dL Creatinine 0.84 (0.57-1.11) mg/dL Glucose 281 H (70-99) mg/dL Calcium 8.9 (8.6-10.8) mg/dL - VTE Documentation of Mechanical Device: Intermittent pneumatic compression device Consult Discharge Plan - Plan Referrals: Duong Akers DO [Partnered Physician] - 03/23/17 1:25 pm Heaven Cho DO [Primary Care Provider] - 03/29/17 4:00 pm - Attending Attestation For this encounter, I have reviewed the RESPIRATORY CARE PRACTITIONER or PA documentation, treatment plan, and medical decision making; and I have had face to face time with this patient.
[2017-03-19] MEDS ORDERED: Magnesium Sulfate 2 GM in D5% in Water 100 ML IVPB ONE (13:36)
[2017-03-19] MEDS ORDERED: Insulin DETEMIR 100 UNIT/ML X5UNITS SQ SCH (13:45)
[2017-03-19 14:15] LABS: Bilirubin,Urine Negative (Negative); Blood,Urine Negative (Negative); Color,Urine Yellow (Yellow); Glucose,Urine (UA) 100 mg/dL (Normal); Ketones,Urine Negative (Negative); Leukocyte Esterase,Urine Negative (Negative); Nitrite,Urine Negative (Negative); Protein,Urine 30 mg/dL (Neg-Trace); Specific Gravity,Urine > 1.030 (1.010-1.025); Urobilinogen,Urine Normal (Normal)
[2017-03-19 14:18] LABS: Bacteria,Urine None Seen per hpf (None-Few); Hyaline Casts,Urine None Seen per lpf (None-Few); Squamous Epithelial Cell,Urine Few per lpf (None-Few)
[2017-03-19 14:20] LABS: Clarity,Urine Hazy (Clear)
[2017-03-19 14:28] LABS: Yeast,Urine Many per hpf (None Seen)
[2017-03-19 14:29] LABS: RBC,Urine 0-3 per hpf (0-3)
[2017-03-19] MEDS ORDERED: 0.9 % Sodium Chloride 500 ML IVC SCH (16:00)
[2017-03-19] MEDS ORDERED: *HR* FentaNYL (PF) 100 MCG/2 ML VIAL ONE (16:03)
[2017-03-19] MEDS ORDERED: *HR* Midazolam HCl 5 MG/5 ML VIAL IVP ONE (16:03)
[2017-03-19] MEDS ORDERED: AMINO ACIDS 5 %/DEXTROSE 15 % 2,000 ML with MVI, adult with vitamin K 10 ML, Sodium A... IVC SCH (17:00)
--- NOTE | 2017-03-19 18:22 | Electrocardiograph Report ---
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
[2017-03-19] MEDS: Gabapentin 300 MG CAPSULE PO SCH (21:02)
[2017-03-20 05:36] LABS: Basophils % 0.3 %; Eosinophils # 0.2 K/mcL (0.0-0.6); Eosinophils % 3.5 %; Hematocrit 32.9 % (35.3-44.9); Immature Granulocytes % 0.3 % (0-4); Immature Platelets 6.6 % (1.1-6.1); Lymphocytes # 0.5 K/mcL (0.6-4.6); Lymphocytes % 6.7 %; Mean Corpuscular HGB Conc 33.4 g/dL (31.6-35.5); Mean Corpuscular Hemoglobin 29.9 pg (28.0-33.3); Mean Platelet Volume 11.7 fL (9.4-12.4); Monocytes # 0.6 K/mcL (0.0-1.3); Monocytes % 9.1 %; Neutrophils # 5.5 K/mcL (1.6-8.9); Platelet Count 263 K/mcL (140-400); Red Blood Count 3.68 M/mcL (3.82-4.97); Red Cell Distribution Width 13.1 % (11.5-14.5); Segmented Neutrophils % 80.1 %
[2017-03-20 05:37] LABS: Mean Corpuscular Volume 89.4 fL (83.0-100.0)
[2017-03-20 05:45] LABS: Glucose 211 mg/dL (70-99)
[2017-03-20] MEDS: Ketorolac 15 MG/ML VIAL IVP SCH ×4 (05:51→18:39)
[2017-03-20] MEDS: *HR* Metoprolol 5 MG/5 ML VIAL IVP SCH ×3 (05:52→17:29)
[2017-03-20] MEDS: *HR* Heparin 5,000 UNIT/ML VIAL SQ SCH ×2 (05:52→18:38)
[2017-03-20] MEDS: Insulin LISPRO 300 UNITS/3 ML VIAL SQ SCH ×5 (06:11→22:05)
[2017-03-20] MEDS: Metoclopramide 10 MG/2 ML VIAL IVP SCH ×3 (06:19→17:29)
[2017-03-20 07:03] LABS: BUN/Creatinine Ratio 28 (6-26); Blood Urea Nitrogen 25 mg/dL (7-20); Calcium 8.8 mg/dL (8.6-10.8); Carbon Dioxide 28 mEq/L (19-29); Chloride 101 mEq/L (98-109); Magnesium 2.1 mg/dL (1.6-2.6); Osmolality,Calculated 301 (280-300); eGFR For African Americans > 60 (> 60); eGFR For Non-African Americans > 60 (> 60)
[2017-03-20 07:05] LABS: Potassium 3.7 mEq/L (3.5-4.5); Sodium 140 mEq/L (136-145)
[2017-03-20 07:06] LABS: Phosphorous 3.1 mg/dL (2.3-4.7)
[2017-03-20] MEDS: Aspirin 81 MG TAB.CHEW PO SCH (10:21)
[2017-03-20] MEDS: Pantoprazole 40 MG VIAL IVP SCH (10:21)
--- NOTE | 2017-03-20 11:28 | General Surgery Progress Note ---
Date of Encounter: 03/20/17 Time of Encounter: 11:20 - Assessment and Plan (1) Ileus, postoperative Current Visit: Yes Status: Acute Severe postoperative ileus. We will continue with nasogastric tube drainage at this point. Subjective Narrative: The patient failed nasogastric tube clamping. The patient had 1200 mL of emesis this morning. The nasogastric tube was placed back on drainage. She had an additional 700 mL. She had endoscopy of the terminal ileum that showed no evidence of obstruction. She has profound postoperative ileus. She is currently on Reglan. We will continue nasogastric tube drainage Objective Vital Signs - Last 8 Hours Temp Pulse Resp BP Pulse Ox 03/20/17 07:35 99.4 F 84 18 168/79 94 03/20/17 03:35 99.3 F 89 15 183/79 94 Intake and Output 03/19/17 03/20/17 03/20/17 23:59 07:59 15:59 Intake Total 350 / 350 250 / 250 Output Total 0 / 0 0 / 0 1900 / 1900 Balance 350 / 350 250 / 250 -1900 / -1900 Intake: IV Fluids 350 / 350 250 / 250 0.9 % Sodium Chloride 500 ML @ 100 / 100 50 mls/hr IVC .Q10H [facility] Rx#: [id number] Intralipid 20% 250 ML @ 21 mls/ 250 / 250 250 / 250 hr IVPB DAILY@1700 [facility] Rx#: [id number] Oral 0 / 0 0 / 0 Output: Urine 0 / 0 0 / 0 Emesis 1200 / 1200 Gastric Tube Lavage Amount 0 / 0 700 / 700 Left Nare 0 / 0 700 / 700 Other: Blood Glucose* 225 192 194 - General physical appearance well developed, well nourished - Respiratory normal expansion, normal respiratory effort, clear to percussion, clear to auscultation - Cardiovascular Cardiovascular exam: Present: RRR, no murmurs/rubs/gallops - Abdomen Abdomen: Present: soft, non tender (Bowel sounds are absent. Ostomy is pink.) - Incision Incision: Present: clean and dry - Neurologic normal coordination, normal sensation - Psychiatric oriented to time, oriented to person, oriented to place, speech is normal, memory intact - Labs 03/20/17 05:33 03/20/17 05:33 Diabetes panel 03/20/17 Range/Units 05:33 Sodium 140 (136-145) mEq/L Potassium 3.7 (3.5-4.5) mEq/L Chloride 101 (98-109) mEq/L Carbon Dioxide 28 (19-29) mEq/L BUN 25 H (7-20) mg/dL Creatinine 0.90 (0.57-1.11) mg/dL Glucose 211 H (70-99) mg/dL Calcium 8.8 (8.6-10.8) mg/dL Calcium panel 03/20/17 Range/Units 05:33 Calcium 8.8 (8.6-10.8) mg/dL Phosphorus 3.1 (2.3-4.7) mg/dL Pituitary panel 03/20/17 Range/Units 05:33 Sodium 140 (136-145) mEq/L Potassium 3.7 (3.5-4.5) mEq/L Chloride 101 (98-109) mEq/L Carbon Dioxide 28 (19-29) mEq/L BUN 25 H (7-20) mg/dL Creatinine 0.90 (0.57-1.11) mg/dL Glucose 211 H (70-99) mg/dL Calcium 8.8 (8.6-10.8) mg/dL Adrenal panel 03/20/17 Range/Units 05:33 Sodium 140 (136-145) mEq/L Potassium 3.7 (3.5-4.5) mEq/L Chloride 101 (98-109) mEq/L Carbon Dioxide 28 (19-29) mEq/L BUN 25 H (7-20) mg/dL Creatinine 0.90 (0.57-1.11) mg/dL Glucose 211 H (70-99) mg/dL Calcium 8.8 (8.6-10.8) mg/dL - VTE Documentation of Mechanical Device: Intermittent pneumatic compression device Consult Discharge Plan - Plan Referrals: Duong Akers DO [Partnered Physician] - 03/23/17 1:25 pm Heaven Cho DO [Primary Care Provider] - 03/29/17 4:00 pm
[2017-03-20] MEDS: Insulin DETEMIR 100 UNIT/ML X5UNITS SQ SCH ×2 (11:50→22:29)
[2017-03-20] MEDS: 0.9 % Sodium Chloride 1,000 ML IVC SCH (12:19)
[2017-03-20] MEDS ORDERED: AMINO ACIDS 5 %/DEXTROSE 15 % 2,000 ML with MVI, adult with vitamin K 10 ML, Sodium A... IVC SCH (17:00)
[2017-03-20] MEDS: Gabapentin 300 MG CAPSULE PO SCH (22:11)
[2017-03-21] MEDS: Metoclopramide 10 MG/2 ML VIAL IVP SCH ×4 (00:26→18:11)
[2017-03-21] MEDS: *HR* Metoprolol 5 MG/5 ML VIAL IVP SCH ×4 (00:26→18:11)
[2017-03-21] MEDS: Insulin LISPRO 300 UNITS/3 ML VIAL SQ SCH ×6 (00:26→21:00)
[2017-03-21 06:02] LABS: BUN/Creatinine Ratio 31 (6-26); Blood Urea Nitrogen 28 mg/dL (7-20); Carbon Dioxide 29 mEq/L (19-29); Chloride 101 mEq/L (98-109); Glucose 180 mg/dL (70-99); Magnesium 2.1 mg/dL (1.6-2.6); Osmolality,Calculated 302 (280-300); Phosphorous 4.1 mg/dL (2.3-4.7); Potassium 3.6 mEq/L (3.5-4.5); Sodium 141 mEq/L (136-145); eGFR For African Americans > 60 (> 60); eGFR For Non-African Americans > 60 (> 60)
[2017-03-21] MEDS: *HR* Heparin 5,000 UNIT/ML VIAL SQ SCH ×2 (06:37→18:11)
[2017-03-21] MEDS: Pantoprazole 40 MG VIAL IVP SCH (08:52)
[2017-03-21] MEDS: Aspirin 81 MG TAB.CHEW PO SCH (08:52)
[2017-03-21] MEDS: Insulin DETEMIR 100 UNIT/ML X5UNITS SQ SCH ×2 (08:52→21:00)
--- NOTE | 2017-03-21 12:06 | General Surgery Progress Note ---
Date of Encounter: 03/21/17 Time of Encounter: 12:00 - Assessment and Plan (1) Ileus, postoperative Current Visit: Yes Status: Acute Severe postoperative ileus. We will continue with nasogastric tube drainage at this point. 03/21/2017. She responded well to nasogastric tube drainage yesterday. Today her abdomen is soft and nontender. She feels very well. We will try to nasogastric tube to a Campbell bag to try to stimulate bowel activity. Subjective Narrative: The patient is made tremendous improvement after nasogastric tube decompression yesterday. Her abdomen is soft. She has very few bowel sounds. Her nausea is much less. He ostomies in good condition. She does not really have much in way of flatus or output from the ostomy. We will try to place the nasogastric tube to a Campbell bag today we can always reattach the nasogastric tube suction if she becomes nauseated. We will continue aggressive therapy for prolonged postoperative ileus Objective Vital Signs - Last 8 Hours Temp Pulse Resp BP Pulse Ox 03/21/17 11:50 97.9 F 90 18 130/80 97 03/21/17 08:12 98.4 F 77 18 137/84 95 03/21/17 06:01 92 134/77 03/21/17 04:12 98.3 F 78 14 149/75 96 Intake and Output 03/20/17 03/21/17 03/21/17 23:59 07:59 15:59 Intake Total 0 / 0 250 / 250 Output Total 450 / 450 500 / 500 150 / 150 Balance -450 / -450 -250 / -250 -150 / -150 Intake: IV Fluids 250 / 250 Intralipid 20% 250 ML @ 21 mls/ 250 / 250 hr IVPB DAILY@1700 [facility] Rx#: [id number] Oral 0 / 0 0 / 0 Output: Gastric Tube Lavage Amount 100 / 100 150 / 150 Left Nare 100 / 100 150 / 150 Catheter 200 / 200 200 / 200 Gastric Drainage 150 / 150 300 / 300 Other: Weight 76.884 kg Blood Glucose* 133 151 217 Patient Weight 03/21/17 23:59 Weight 76.884 kg - General physical appearance well developed, well nourished - Respiratory normal expansion, normal respiratory effort, clear to percussion, clear to auscultation - Cardiovascular Cardiovascular exam: Present: RRR, no murmurs/rubs/gallops - Abdomen Abdomen: Present: soft, non tender (Very few bowel sounds) - Incision Incision: Present: clean and dry - Neurologic normal coordination, normal sensation - Psychiatric oriented to time, oriented to person, oriented to place, speech is normal, memory intact - Labs 03/20/17 05:33 03/21/17 05:25 Diabetes panel 03/21/17 03/21/17 Range/Units 04:42 05:25 Sodium TNP 141 Potassium TNP 3.6 Chloride TNP 101 Carbon Dioxide TNP 29 BUN TNP 28 H Creatinine TNP 0.90 Glucose TNP 180 H Calcium TNP 9.0 Calcium panel 03/21/17 03/21/17 Range/Units 04:42 05:25 Calcium TNP 9.0 Phosphorus TNP 4.1 Pituitary panel 03/21/17 03/21/17 Range/Units 04:42 05:25 Sodium TNP 141 Potassium TNP 3.6 Chloride TNP 101 Carbon Dioxide TNP 29 BUN TNP 28 H Creatinine TNP 0.90 Glucose TNP 180 H Calcium TNP 9.0 Adrenal panel 03/21/17 03/21/17 Range/Units 04:42 05:25 Sodium TNP 141 Potassium TNP 3.6 Chloride TNP 101 Carbon Dioxide TNP 29 BUN TNP 28 H Creatinine TNP 0.90 Glucose TNP 180 H Calcium TNP 9.0 - VTE Documentation of Mechanical Device: Intermittent pneumatic compression device Consult Discharge Plan - Plan Referrals: Duong Akers DO [Partnered Physician] - 03/23/17 1:25 pm Heaven Cho DO [Primary Care Provider] - 03/29/17 4:00 pm
[2017-03-21] MEDS: 0.9 % Sodium Chloride 1,000 ML IVC SCH (12:36)
[2017-03-21] MEDS ORDERED: AMINO ACIDS 5 %/DEXTROSE 15 % 2,000 ML with MVI, adult with vitamin K 10 ML, Sodium A... IVC SCH (17:00)
[2017-03-21] MEDS ORDERED: *HR* LORazepam 2 MG/ML VIAL IVP ONE (19:19)
[2017-03-21] MEDS: Gabapentin 300 MG CAPSULE PO SCH (22:16)
[2017-03-21] MEDS: Nicotine 14 MG PATCH.TD24 TD SCH (22:16)
[2017-03-22] MEDS: Metoclopramide 10 MG/2 ML VIAL IVP SCH ×4 (01:05→17:49)
[2017-03-22] MEDS: Insulin LISPRO 300 UNITS/3 ML VIAL SQ SCH ×6 (01:05→20:45)
[2017-03-22] MEDS: *HR* Metoprolol 5 MG/5 ML VIAL IVP SCH ×4 (01:05→17:48)
[2017-03-22 04:17] LABS: BUN/Creatinine Ratio 33 (6-26); Blood Urea Nitrogen 27 mg/dL (7-20); Calcium 8.9 mg/dL (8.6-10.8); Carbon Dioxide 27 mEq/L (19-29); Chloride 103 mEq/L (98-109); Glucose 153 mg/dL (70-99); Osmolality,Calculated 298 (280-300); Phosphorous 3.9 mg/dL (2.3-4.7); Potassium 3.9 mEq/L (3.5-4.5); Sodium 140 mEq/L (136-145); eGFR For African Americans > 60 (> 60); eGFR For Non-African Americans > 60 (> 60)
[2017-03-22] MEDS: *HR* Heparin 5,000 UNIT/ML VIAL SQ SCH ×2 (05:38→17:48)
[2017-03-22] MEDS: Nicotine 14 MG PATCH.TD24 TD SCH (08:28)
[2017-03-22] MEDS: Insulin DETEMIR 100 UNIT/ML X5UNITS SQ SCH ×2 (08:28→20:44)
[2017-03-22] MEDS: Aspirin 81 MG TAB.CHEW PO SCH (08:28)
[2017-03-22] MEDS: Pantoprazole 40 MG VIAL IVP SCH (08:29)
[2017-03-22] MEDS: *HR* HYDROmorphone (PF) 1 MG/ML SYRINGE IVP PRN ×2 (12:07→18:14)
--- NOTE | 2017-03-22 15:43 | General Surgery Progress Note ---
Date of Encounter: 03/22/17 Time of Encounter: 15:30 - Assessment and Plan (1) Rectal cancer Current Visit: Yes Status: Acute POD #10 Robotic rectal resection with diverting loop ileostomy with Dr. Akers Pathology reviewed with patient per Dr. 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 PPI therapy daily IS every 1 hour while awake Out of bed to chair TID and ambulate hallways with assistance Supportive care and pain control (2) Ileus, postoperative Current Visit: Yes Status: Acute NPO NG tube to LIWS SBFT today IV fluids PICC line and TPN Reglan every 6 hours (3) Hyperglycemia Current Visit: Yes Status: Acute SSI every 4 hours- increased to high scale coverage Levemir- continue 25units BID Continue to monitor and adjust regimen as necessary (4) Urinary retention Current Visit: Yes Status: Acute Modi catheter to SD Urinalysis negative for UTI- many yeast (add diflucan) Flomax started 03/18/17 (5) DVT prophylaxis Current Visit: Yes Status: Acute Heparin 5,000 units SQ twice daily for DVT prophylaxis Ambulate hallways TID with assistance Subjective Patient reports: still having pain (complaint of right sided "gas pain"), no flatus, no bowel movement, afebrile, other (Patient received gastrograffin for SBFT via NG tube today- denies nausea/vomiting) Objective Vital Signs - Last 8 Hours Temp Pulse Resp BP Pulse Ox 03/22/17 11:55 98.9 F 93 18 140/81 92 Intake and Output 03/21/17 03/22/17 03/22/17 23:59 07:59 15:59 Intake Total 0 / 0 250 / 250 0 / 0 Output Total 0 / 0 650 / 650 1000 / 1000 Balance 0 / 0 -400 / -400 -1000 / -1000 Intake: IV Fluids 250 / 250 Intralipid 20% 250 ML @ 21 mls/ 250 / 250 hr IVPB DAILY@1700 [facility] Rx#: [id number] Oral 0 / 0 0 / 0 0 / 0 Output: Urine 0 / 0 Emesis 800 / 800 Catheter 0 / 0 600 / 600 200 / 200 Gastric Drainage 50 / 50 Other: Meal NPO Weight 76.657 kg Blood Glucose* 180 182 163 Patient Weight 03/22/17 23:59 Weight 76.657 kg - General physical appearance well developed, well nourished, moderate distress, moderate pain - Eyes normal ocular movement - ENT normal mucosa, atraumatic, normocephalic - Neck Neck exam: trachea midline - Respiratory normal respiratory effort, clear to auscultation - Cardiovascular Cardiovascular exam: Present: RRR - Abdomen Abdomen: Present: soft, distended, tender (minimal expected tenderness), wound ( Ileostomy is pink and moist without flatus or stool; NG tube clamped for SBFT) - Genitourinary other (modi catheter to SD with clear yellow urine) - Neurologic CN 2-12 grossly intact - Psychiatric oriented to time, oriented to person, oriented to place, speech is normal, memory intact - Labs 03/20/17 05:33 03/22/17 03:55 Diabetes panel 03/22/17 Range/Units 03:55 Sodium 140 (136-145) mEq/L Potassium 3.9 (3.5-4.5) mEq/L Chloride 103 (98-109) mEq/L Carbon Dioxide 27 (19-29) mEq/L BUN 27 H (7-20) mg/dL Creatinine 0.83 (0.57-1.11) mg/dL Glucose 153 H (70-99) mg/dL Calcium 8.9 (8.6-10.8) mg/dL Calcium panel 03/22/17 Range/Units 03:55 Calcium 8.9 (8.6-10.8) mg/dL Phosphorus 3.9 (2.3-4.7) mg/dL Pituitary panel 03/22/17 Range/Units 03:55 Sodium 140 (136-145) mEq/L Potassium 3.9 (3.5-4.5) mEq/L Chloride 103 (98-109) mEq/L Carbon Dioxide 27 (19-29) mEq/L BUN 27 H (7-20) mg/dL Creatinine 0.83 (0.57-1.11) mg/dL Glucose 153 H (70-99) mg/dL Calcium 8.9 (8.6-10.8) mg/dL Adrenal panel 03/22/17 Range/Units 03:55 Sodium 140 (136-145) mEq/L Potassium 3.9 (3.5-4.5) mEq/L Chloride 103 (98-109) mEq/L Carbon Dioxide 27 (19-29) mEq/L BUN 27 H (7-20) mg/dL Creatinine 0.83 (0.57-1.11) mg/dL Glucose 153 H (70-99) mg/dL Calcium 8.9 (8.6-10.8) mg/dL - VTE Documentation of Mechanical Device: Intermittent pneumatic compression device Consult Discharge Plan - Plan Referrals: Doung Akers DO [Partnered Physician] - Heaven Cho DO [Primary Care Provider] - 03/29/17 4:00 pm - Attending Attestation For this encounter, I have reviewed the MINING PLANT OPERATOR or PA documentation, treatment plan, and medical decision making; and I have had face to face time with this patient.
[2017-03-22] MEDS: 0.9 % Sodium Chloride 1,000 ML IVC SCH ×3 (15:51→16:07)
[2017-03-22] MEDS ORDERED: Fluconazole 200 MG/100 ML 200 MG/100 ML BAG IVPB ONE (16:04)
[2017-03-22] MEDS ORDERED: Clinimix E 5%-15% SOLUTION 2,000 ML with MVI, adult with vitamin K 10 ML, Insulin Hum... IVC SCH (17:00)
[2017-03-22] MEDS: Ondansetron 4 MG/2 ML VIAL IVP PRN ×2 (17:46→23:30)
[2017-03-22] MEDS: Gabapentin 300 MG CAPSULE PO SCH (22:28)
[2017-03-23] MEDS: *HR* Metoprolol 5 MG/5 ML VIAL IVP SCH ×5 (00:47→23:16)
[2017-03-23] MEDS: Metoclopramide 10 MG/2 ML VIAL IVP SCH ×5 (00:47→23:16)
[2017-03-23] MEDS: *HR* HYDROmorphone (PF) 1 MG/ML SYRINGE IVP PRN ×3 (00:48→14:57)
[2017-03-23] MEDS: Insulin LISPRO 300 UNITS/3 ML VIAL SQ SCH ×7 (00:48→23:23)
[2017-03-23 04:29] LABS: BUN/Creatinine Ratio 31 (6-26); Blood Urea Nitrogen 31 mg/dL (7-20); Calcium 9.5 mg/dL (8.6-10.8); Carbon Dioxide 30 mEq/L (19-29); Chloride 103 mEq/L (98-109); Glucose 187 mg/dL (70-99); Magnesium 2.2 mg/dL (1.6-2.6); Osmolality,Calculated 303 (280-300); Phosphorous 4.6 mg/dL (2.3-4.7); Potassium 4.3 mEq/L (3.5-4.5); Sodium 141 mEq/L (136-145); eGFR For African Americans > 60 (> 60); eGFR For Non-African Americans 57 (> 60)
[2017-03-23] MEDS: Ondansetron 4 MG/2 ML VIAL IVP PRN ×4 (04:52→18:58)
[2017-03-23] MEDS: *HR* Heparin 5,000 UNIT/ML VIAL SQ SCH ×2 (06:09→17:57)
[2017-03-23] MEDS: Pantoprazole 40 MG VIAL IVP SCH (07:25)
[2017-03-23] MEDS: Aspirin 81 MG TAB.CHEW PO SCH (07:25)
[2017-03-23] MEDS: Nicotine 14 MG PATCH.TD24 TD SCH (07:27)
[2017-03-23] MEDS: Fluconazole 100 MG/50 ML 100 MG/50 ML BAG IVPB SCH (08:25)
[2017-03-23] MEDS: Insulin DETEMIR 100 UNIT/ML X5UNITS SQ SCH ×2 (08:25→19:57)
--- NOTE | 2017-03-23 10:17 | General Surgery Progress Note ---
Date of Encounter: 03/23/17 Time of Encounter: 09:45 - Assessment and Plan (1) Rectal cancer Current Visit: Yes Status: Acute POD #11 Robotic rectal resection with diverting loop ileostomy with Dr. Akers Pathology reviewed with patient per Dr. Akers NPO while awaiting return of bowel function (suspect the patient has a severe post-operative ileus) NG tube to LIWS (placed 03/15/17) SBFT 03/22- no transition point identified. Suspect severe post-operative ileus Consult to GI for neostigmine infusion Limit PO meds- D/C or converted most to IV administration IV fluids- total fluid rate 100ml/hour (MIV + TPN) Continue TPN [employer] for management of TPN PPI therapy daily IS every 1 hour while awake Out of bed to chair TID and ambulate hallways with assistance Supportive care and pain control Repeat am labs (2) Ileus, postoperative Current Visit: Yes Status: Acute NPO NG tube to LIWS SBFT 03/22- dilated small bowel without identification of transition point- suspect severe post-operative ileus Consult gastroenterology for neostigmine infusion IV fluids PICC line and TPN Reglan every 6 hours (3) Hyperglycemia Current Visit: Yes Status: Acute SSI every 4 hours- increased to high scale coverage Levemir- increase to 30 units BID Continue to monitor and adjust regimen as necessary (4) Urinary retention Current Visit: Yes Status: Acute Modi catheter to SD Urinalysis negative for UTI- many yeast (add diflucan 03/22) Flomax started 03/18/17 (5) DVT prophylaxis Current Visit: Yes Status: Acute Heparin 5,000 units SQ twice daily for DVT prophylaxis Ambulate hallways TID with assistance Subjective Patient reports: no new complaints, no flatus, no bowel movement, afebrile Objective Vital Signs - Last 8 Hours Temp Pulse Resp BP Pulse Ox 03/23/17 08:47 98 03/23/17 07:39 97.6 F 83 16 146/90 98 03/23/17 04:19 97.1 F L 90 14 148/80 94 Intake and Output 03/22/17 03/23/17 03/23/17 23:59 07:59 15:59 Intake Total 1300 / 1300 710 / 710 50 / 50 Output Total 2350 / 2350 275 / 275 Balance -1050 / -1050 435 / 435 50 / 50 Intake: IV Fluids 1300 / 1300 710 / 710 50 / 50 0.9 % Sodium Chloride 1,000 ML 1200 / 1200 460 / 460 @ 100 mls/hr IVC .Q10H [facility] Rx#: [id number] Intralipid 20% 250 ML @ 21 mls/ 250 / 250 hr IVPB DAILY@1700 [facility] Rx#: [id number] Diflucan 100 MG/50 ML 100 mg In 50 / 50 50 ml @ 50 mls/hr IVPB DAILY [facility] Rx#:[id number] Diflucan Premix 200 MG/100 ML 100 / 100 200 mg In 100 ml @ 100 mls/hr IVPB ONCE ONE Rx#:[id number] Oral 0 / 0 0 / 0 Output: Urine 0 / 0 Emesis 1800 / 1800 Catheter 100 / 100 250 / 250 Gastric Drainage 450 / 450 25 / 25 Other: Meal NPO Weight 76.521 kg Blood Glucose* 265 220 Patient Weight 03/23/17 23:59 Weight 76.521 kg - General physical appearance well developed, no distress - Eyes normal ocular movement - ENT dry mucosa, atraumatic, normocephalic - Neck Neck exam: trachea midline - Respiratory normal respiratory effort, clear to auscultation - Cardiovascular Cardiovascular exam: Present: RRR - Abdomen Abdomen: Present: soft, distended, tender (minimal, expected post-operative tenderness), wound (Ileostomy is pink and moist without flatus or stool; NG tube to gravity drain with bilious drainage noted) - Incision Incision: Present: clean and dry, intact - Genitourinary other (modi catheter to SD with cortez yelow urine noted) - Neurologic CN 2-12 grossly intact - Psychiatric oriented to time, oriented to person, oriented to place, speech is normal, memory intact - Labs 03/20/17 05:33 03/23/17 03:40 Diabetes panel 03/23/17 Range/Units 03:40 Sodium 141 (136-145) mEq/L Potassium 4.3 (3.5-4.5) mEq/L Chloride 103 (98-109) mEq/L Carbon Dioxide 30 H (19-29) mEq/L BUN 31 H (7-20) mg/dL Creatinine 1.01 (0.57-1.11) mg/dL Glucose 187 H (70-99) mg/dL Calcium 9.5 (8.6-10.8) mg/dL Calcium panel 03/23/17 Range/Units 03:40 Calcium 9.5 (8.6-10.8) mg/dL Phosphorus 4.6 (2.3-4.7) mg/dL Pituitary panel 03/23/17 Range/Units 03:40 Sodium 141 (136-145) mEq/L Potassium 4.3 (3.5-4.5) mEq/L Chloride 103 (98-109) mEq/L Carbon Dioxide 30 H (19-29) mEq/L BUN 31 H (7-20) mg/dL Creatinine 1.01 (0.57-1.11) mg/dL Glucose 187 H (70-99) mg/dL Calcium 9.5 (8.6-10.8) mg/dL Adrenal panel 03/23/17 Range/Units 03:40 Sodium 141 (136-145) mEq/L Potassium 4.3 (3.5-4.5) mEq/L Chloride 103 (98-109) mEq/L Carbon Dioxide 30 H (19-29) mEq/L BUN 31 H (7-20) mg/dL Creatinine 1.01 (0.57-1.11) mg/dL Glucose 187 H (70-99) mg/dL Calcium 9.5 (8.6-10.8) mg/dL - VTE Documentation of Mechanical Device: Intermittent pneumatic compression device Consult Discharge Plan - Plan Referrals: Duong Akers DO [Partnered Physician] - Heaven Cho DO [Primary Care Provider] - 03/29/17 4:00 pm - Attending Attestation For this encounter, I have reviewed the STUDENT SERVICES REPRESENTATIVE or PA documentation, treatment plan, and medical decision making; and I have had face to face time with this patient.
[2017-03-23] MEDS ORDERED: 0.9 % Sodium Chloride 500 ML IVC ONE (10:24)
--- NOTE | 2017-03-23 11:48 | Gastroenterology Consult Note ---
Date of Encounter: 03/23/17 Time of Encounter: 13:46 - Assessment and plan (1) Ileus, postoperative Current Visit: Yes Status: Acute Assessment and plan: Postop day 11 robotic rectal resection with a diverting ileostomy plan for neostigmine trial today patient explained risks and benefits of the procedure. Atropine on hand if patient becomes bradycardic. - Time Spent With Patient Total time spent is greater than 50% in coordination of care (as documented) at patient's floor/unit and/or counseling patient: GI History of Present Illness - Data of Consult Patient: new to practice Consult date: 03/23/17 Requesting Physician: Duong Akers DO - Consult Narrative Reason for consult: severe post-op ileus History of present illness: Ms. Mckeon is a 56 year old female hx of rectal cancer underwent robotic rectal resection with diverting loop ileostomy. Today is postop day 11. Patient was treated with NG tube, nothing by mouth status, and IV fluids. small bowel follow-through on 03/25 dilated small bowel without transition point. 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 Past Med Surg Social Fam HX - Past Medical History Medical history: asthma, cancer, diabetes, hyperlipidemia, hypertension, kidney stones, myocardial infarction Psychiatric history: anxiety, depression, PTSD - Past Surgical History Surgical History: cholecystectomy, other - Social History Smoking Status: Never smoker Packs per day: 0.5 ppd Smokeless Tobacco Status: No Alcohol use: none Drug use: none Review of Systems: Constitutional: Denies fever, chills HEENT: reports headache, denies vision changes, neck pain, sore throat, rhinorrhea Heart: Denies chest pain palpitations Lungs: Denies shortness of breath cough Abdomen: reports abdominal discomfort, distension, mild nausea. Back: Denies back pain Kidney: Denies dysuria, hematuria Skin: warm and dry Extremities: Denies swelling, pain Neuro: Denies numbness, and tingling - Constitutional Vitals: Temp Pulse Resp BP Pulse Ox 98.5 F 76 16 143/76 93 03/23/17 11:00 03/23/17 11:00 03/23/17 11:00 03/23/17 11:00 03/23/17 11:00 - Other Additional findings: General: Pleasant without distress HEENT: Head atraumatic, normocephalic, EOMI, PERRL, neck nontender to palpation , absent lymphadenopathy, dry Mucous Membranes, NG tube in place draining. Heart: Regular rate and rhythm with no murmur Lungs: Clear to auscultation bilaterally Abdomen: Soft distended, tender to light palpation, no output on ileostomy, surgical incisions intact and dry without discharge. Skin: warm and dry Extremities: Absent pedal edema, Neuro: Alert oriented 3 Vascular: Pedal and radial pulses 2 out of 4 Results - Labs CBC & Chem 7: 03/20/17 05:33 03/23/17 03:40 Labs: Last Result Calcium 9.5 mg/dL (8.6-10.8) 03/23/17 03:40 Triglycerides 165 mg/dL (< 150) H 03/17/17 05:20 Entire Visit Hgb 11.0 g/dL (11.5-15.4) L 03/20/17 05:33 Hct 32.9 % (35.3-44.9) L 03/20/17 05:33 Total Bilirubin 0.4 mg/dL (0.2-1.2) 03/15/17 13:58 AST 8 Units/L (5-34) 03/15/17 13:58 ALT 9 Units/L (0-55) 03/15/17 13:58 - Impressions Impressions Small Bowel X-Ray 03/22/17 08:48 IMPRESSION: Dilated small bowel loops into the pelvis are opacified, likely distal jejunum or proximal ileum. Multiple additional small bowel loops proximal to the ileostomy are not opacified. However a definite transition point is not identified. Patient was nauseated throughout the study and vomited 3 L of enteric contents. Therefore no further images were obtained after 22 hours. Findings remain indeterminate for postoperative ileus versus small bowel obstruction. Findings were discussed with Dr. Akers at 8:30 a.m. on 03/23/2017. D/ / 03/23/2017 09:15:54 [facility] Interpreting Provider: Basil Bardales MD Consult Discharge Plan - Plan Referrals: Duong Akers DO [Partnered Physician] - Heaven Cho DO [Primary Care Provider] - 03/29/17 4:00 pm
--- NOTE | 2017-03-23 12:21 | Operative Note ---
Date of procedure: 03/19/17 Pre-op diagnosis: Rectal Cancer Post-op diagnosis: same Procedure: enterostomy Anesthesia: MAC Surgeon: Duong Akers Condition: stable Disposition: same day Procedure in Detail: After informed consent, the pt was taken to the endo suite. After adequate sedation, the endoscope was placed in the stoma. It was passed into the the IC valvwe easily. It was then passed proximally and no volvulus was identified. The terminal ileum was normal in its appearance.The procedure was terminated at this point. Impression: 1. Normal terminal ileum.
[2017-03-23] MEDS ORDERED: *HR* Atropine Sulfate 1 MG/10 ML SYRINGE IVP ONE (13:17)
[2017-03-23] MEDS ORDERED: *HR* Atropine Sulfate 1 MG/10 ML SYRINGE ONE (14:36)
[2017-03-23] MEDS ORDERED: Clinimix E 5%-15% SOLUTION 2,000 ML with MVI, adult with vitamin K 10 ML, Insulin Hum... IVC SCH (17:00)
[2017-03-23] MEDS: Gabapentin 300 MG CAPSULE PO SCH (19:57)
[2017-03-23] MEDS: 0.9 % Sodium Chloride 1,000 ML IVC SCH (23:16)
[2017-03-24] MEDS: *HR* HYDROmorphone (PF) 1 MG/ML SYRINGE IVP PRN ×6 (00:21→23:33)
[2017-03-24 04:32] LABS: Basophils % 0.4 %; Eosinophils # 0.4 K/mcL (0.0-0.6); Eosinophils % 3.9 %; Hematocrit 32.5 % (35.3-44.9); Hemoglobin 10.3 g/dL (11.5-15.4); Immature Granulocytes % 0.9 % (0-4); Lymphocytes # 0.7 K/mcL (0.6-4.6); Lymphocytes % 7.6 %; Mean Corpuscular HGB Conc 31.7 g/dL (31.6-35.5); Mean Corpuscular Hemoglobin 29.8 pg (28.0-33.3); Mean Corpuscular Volume 93.9 fL (83.0-100.0); Mean Platelet Volume 12.3 fL (9.4-12.4); Monocytes # 0.8 K/mcL (0.0-1.3); Monocytes % 8.6 %; Neutrophils # 7.5 K/mcL (1.6-8.9); Platelet Count 313 K/mcL (140-400); Red Blood Count 3.46 M/mcL (3.82-4.97); Red Cell Distribution Width 13.4 % (11.5-14.5); Segmented Neutrophils % 78.6 %
[2017-03-24] MEDS: Insulin LISPRO 300 UNITS/3 ML VIAL SQ SCH ×6 (04:37→23:34)
[2017-03-24 04:46] LABS: BUN/Creatinine Ratio 35 (6-26); Blood Urea Nitrogen 34 mg/dL (7-20); Calcium 8.6 mg/dL (8.6-10.8); Carbon Dioxide 26 mEq/L (19-29); Chloride 106 mEq/L (98-109); Glucose 195 mg/dL (70-99); Osmolality,Calculated 303 (280-300); Potassium 4.4 mEq/L (3.5-4.5); Sodium 140 mEq/L (136-145); eGFR For African Americans > 60 (> 60); eGFR For Non-African Americans > 60 (> 60)
[2017-03-24 04:50] LABS: Magnesium 1.9 mg/dL (1.6-2.6); Phosphorous 4.5 mg/dL (2.3-4.7)
[2017-03-24] MEDS: *HR* Metoprolol 5 MG/5 ML VIAL IVP SCH ×4 (05:50→23:38)
[2017-03-24] MEDS: Metoclopramide 10 MG/2 ML VIAL IVP SCH ×4 (05:50→23:33)
[2017-03-24] MEDS: *HR* Heparin 5,000 UNIT/ML VIAL SQ SCH ×2 (05:52→18:26)
[2017-03-24] MEDS: Pantoprazole 40 MG VIAL IVP SCH (08:00)
[2017-03-24] MEDS: Nicotine 14 MG PATCH.TD24 TD SCH (08:00)
[2017-03-24] MEDS: Fluconazole 100 MG/50 ML 100 MG/50 ML BAG IVPB SCH (08:00)
[2017-03-24] MEDS: Aspirin 81 MG TAB.CHEW PO SCH (08:01)
[2017-03-24] MEDS: Insulin DETEMIR 100 UNIT/ML X5UNITS SQ SCH ×2 (08:33→21:31)
[2017-03-24] MEDS: 0.9 % Sodium Chloride 1,000 ML IVC SCH ×2 (10:57→19:59)
--- NOTE | 2017-03-24 15:18 | Anesthesia Evaluation PreOp ---
Date of Encounter: 03/24/17 Time of Encounter: 15:14 - Past History Planned Operation: diagnostic laparoscopy Cardiac History: DC, HTN, Hyperlipidemia, Cardiac Stent (stents 2004, 2005) Pulmonary History: Denies Any Significant HX FISHERIES INSPECTOR History: Denies Any Significant HX Other Medical History: Diabetes Type II, Other (newly diagnosed rectal CA) Anesthesia History: No Prior Anesthetic Complications, Past Anesthesia (shanti, robotic rectal resection on 03-12 now with ileus) : No Alcohol Use: none Drug use: none Medications and Allergies Aspirin 81 mg PO DAILY 10/22/16 [History] Cholecalciferol (D-3) [Vitamin D] 1,000 unit PO DAILY 10/22/16 [History] Clopidogrel [Plavix] 75 mg PO DAILY 10/22/16 [History] Duloxetine HCl [Cymbalta] 120 mg PO DAILY 10/22/16 [History] Gabapentin [Neurontin] 600 mg PO HS 10/22/16 [History] Insulin Glargine,Hum.rec.anlog [Lantus Solostar] 40 unit SQ HS PRN 10/22/16 [ History] Losartan Potassium [Cozaar] 50 mg PO DAILY 10/22/16 [History] Metformin HCl [Metformin HCl ER] 1,000 mg PO BID 10/22/16 [History] Simvastatin [Zocor] 40 mg PO HS 10/22/16 [History] Exenatide [Byetta] 5 mcg SQ BID 01/22/17 [History] 3 Allergy/AdvReac Type Severity Reaction Status Date / Time diphenhydramine Allergy Itching Verified 03/12/17 06:26 [From Benadryl] - Meds/Allergy Pre-op Review Medications Reviewed: Yes Allergies Reviewed: Yes Beta Blockers on Current Med List: No Anesthesia Results - Labs 03/24/17 04:00 03/24/17 04:00 - Imaging EKG: report reviewed (SINUS RHYTHM INFERIOR MYOCARDIAL INFARCTION, OF INDETERMINATE AGE) Anesthesia Exam Selected Entries 03/24/17 11:37 03/24/17 15:00 Temperature 98.5 F Pulse Rate 81 Respiratory Rate 17 Blood Pressure 150/77 O2 Sat by Pulse Oximetry 99 Oxygen Delivery Method Room Air Weight: 78.5 kg - HEENT Pupil (Motor): EOMI Mallampati: I Teeth: Edentulous (upper) Oral Opening: Greater than 3 - FISHERIES INSPECTOR LOC: Oriented FISHERIES INSPECTOR Motor: Normal RUE, Normal LUE, Normal RLE, Normal LLE, Normal Face FISHERIES INSPECTOR Sensory: Normal: RUE, LUE, RLE, LLE, Face - Cardiac Rhythm: Regular Murmur: None - Pulmonary Breath Sounds: bilateral Clear Respiratory Effort: Symmetrical Anesthesia Assess/Plan ASA Score: 4 Modified Fabiola Scale for Level of Consciousness: Cooperative, oriented, and tranquil Anesthetic Plan: General Monitoring Plan: Standard Monitors Recovery Plan: PACU (discussed GA, agrees to proceed)
[2017-03-24] MEDS ORDERED: *HR* Labetalol 20 MG/4 ML SYRINGE IVP PRN (16:01)
[2017-03-24] MEDS ORDERED: *HR* Promethazine 25 MG/ML VIAL IVP PRN (16:01)
[2017-03-24] MEDS ORDERED: *HR* HYDROmorphone (PF) 1 MG/ML SYRINGE IVP PRN (16:01)
[2017-03-24] MEDS ORDERED: Albumin Human 5% 0 GM/0 ML VIAL ONE (16:04)
[2017-03-24] MEDS ORDERED: *HR* Succinylcholine 200 MG/10 ML VIAL IVP ONE (16:06)
[2017-03-24] MEDS ORDERED: Ondansetron 4 MG/2 ML VIAL ONE (16:06)
[2017-03-24] MEDS ORDERED: *HR* FentaNYL (PF) 100 MCG/2 ML VIAL ONE (16:07)
[2017-03-24] MEDS ORDERED: *HR* Propofol 200 MG/20 ML VIAL IVP ONE (16:07)
[2017-03-24] MEDS ORDERED: Acetaminophen IV 1,000 MG/100 ML INFUS..BTL ONE (16:12)
[2017-03-24] MEDS ORDERED: Clinimix E 5%-15% SOLUTION 2,000 ML with MVI, adult with vitamin K 10 ML, Insulin Hum... IVC SCH (17:00)
[2017-03-24] MEDS ORDERED: 0.9 % Sodium Chloride 500 ML IVC ONE ×2 (19:59→21:13)
[2017-03-24 20:14] LABS: Basophils % 0.2 %; Eosinophils # 0.1 K/mcL (0.0-0.6); Eosinophils % 0.6 %; Hematocrit 23.6 % (35.3-44.9); Immature Granulocytes % 1.3 % (0-4); Immature Platelets 8.9 % (1.1-6.1); Lymphocytes # 0.6 K/mcL (0.6-4.6); Lymphocytes % 3.1 %; Mean Corpuscular HGB Conc 32.2 g/dL (31.6-35.5); Mean Corpuscular Hemoglobin 30.5 pg (28.0-33.3); Mean Corpuscular Volume 94.8 fL (83.0-100.0); Mean Platelet Volume 12.4 fL (9.4-12.4); Monocytes # 0.6 K/mcL (0.0-1.3); Monocytes % 2.8 %; Neutrophils # 19.1 K/mcL (1.6-8.9); Platelet Count 389 K/mcL (140-400); Red Blood Count 2.49 M/mcL (3.82-4.97); Red Cell Distribution Width 13.6 % (11.5-14.5)
[2017-03-24 20:16] LABS: Hemoglobin 7.6 g/dL (11.5-15.4)
[2017-03-24 20:25] LABS: Calcium 7.9 mg/dL (8.6-10.8); Potassium 5.3 mEq/L (3.5-4.5)
[2017-03-24 20:59] LABS: Hematocrit 21.7 % (35.3-44.9); Hemoglobin 6.9 g/dL (11.5-15.4)
[2017-03-24] MEDS ORDERED: 0.9 % Sodium Chloride 250 ML ONE (21:15)
[2017-03-24] MEDS: Norepinephrine 4 MG in D5% in Water 250 ML IVC SCH (21:22)
[2017-03-24] MEDS: Gabapentin 300 MG CAPSULE PO SCH (22:40)
[2017-03-25] MEDS: 0.9 % Sodium Chloride 1,000 ML IVC SCH (00:45)
[2017-03-25] MEDS: *HR* HYDROmorphone (PF) 1 MG/ML SYRINGE IVP PRN ×7 (01:47→21:17)
[2017-03-25 01:59] LABS: Hematocrit 30.5 % (35.3-44.9); Hemoglobin 10.2 g/dL (11.5-15.4)
[2017-03-25] MEDS: Insulin LISPRO 300 UNITS/3 ML VIAL SQ SCH ×6 (04:41→23:56)
[2017-03-25] MEDS: Metoclopramide 10 MG/2 ML VIAL IVP SCH ×3 (05:57→17:47)
[2017-03-25] MEDS: *HR* Heparin 5,000 UNIT/ML VIAL SQ SCH ×2 (05:57→17:47)
[2017-03-25] MEDS: *HR* Metoprolol 5 MG/5 ML VIAL IVP SCH ×3 (05:57→17:47)
[2017-03-25 06:16] LABS: Basophils % 0.2 %; Hematocrit 28.4 % (35.3-44.9); Hemoglobin 9.6 g/dL (11.5-15.4); Immature Granulocytes % 2.4 % (0-4); Lymphocytes # 0.6 K/mcL (0.6-4.6); Lymphocytes % 3.2 %; Mean Corpuscular HGB Conc 33.8 g/dL (31.6-35.5); Mean Corpuscular Hemoglobin 30.1 pg (28.0-33.3); Mean Platelet Volume 12.6 fL (9.4-12.4); Monocytes # 0.9 K/mcL (0.0-1.3); Neutrophils # 16.8 K/mcL (1.6-8.9); Platelet Count 250 K/mcL (140-400); Red Blood Count 3.19 M/mcL (3.82-4.97); Red Cell Distribution Width 14.9 % (11.5-14.5); Segmented Neutrophils % 89.2 %
[2017-03-25 06:26] LABS: Calcium 8.2 mg/dL (8.6-10.8); Magnesium 1.7 mg/dL (1.6-2.6); Phosphorous 4.5 mg/dL (2.3-4.7); Potassium 5.3 mEq/L (3.5-4.5)
[2017-03-25] MEDS: Nicotine 14 MG PATCH.TD24 TD SCH (08:59)
[2017-03-25] MEDS: Fluconazole 100 MG/50 ML 100 MG/50 ML BAG IVPB SCH (08:59)
[2017-03-25] MEDS: Pantoprazole 40 MG VIAL IVP SCH (08:59)
--- NOTE | 2017-03-25 11:16 | Operative Note ---
Date of procedure: 03/24/17 Pre-op diagnosis: Postoperative ileus Post-op diagnosis: same Procedure: Diagnostic laparoscopy Anesthesia: LIVAN Surgeon: Duong Akers Estimated blood loss (cc): 2 Condition: stable Disposition: same day Procedure in Detail: After informed consent, patient taken the operating placed supine position. After sedation anesthesia was prepped and draped. 5 mm cannulas placed on the left abdominal wall. 2 additional 5 mm ports were also placed. After the ports were in place and was able to gain access underneath the transverse mesocolon and identifying the ligament of Treitz. The jejunum was then run hand over hand to the level of the ileum and then eventually to the loop ileostomy. No adhesive band was identified. The small bowel was mildly dilated. The loop ileostomy was intact level of skin. However no stool had traveled through the ostomy site. There is no obstructive band identified. At this point the procedure was terminated.
[2017-03-25] MEDS ORDERED: *HR* Atropine Sulfate 1 MG/10 ML SYRINGE IV PRN (11:44)
[2017-03-25] MEDS ORDERED: Neostigmine Methylsulfate 3 MG in 0.9 % Sodium Chloride 250 ML IVC ONE (11:45)
[2017-03-25] MEDS: Aspirin 81 MG TAB.CHEW PO SCH (11:55)
[2017-03-25] MEDS: Insulin DETEMIR 100 UNIT/ML X5UNITS SQ SCH ×2 (12:01→21:18)
[2017-03-25] MEDS ORDERED: Clinimix E 5%-15% SOLUTION 2,000 ML with MVI, adult with vitamin K 10 ML, Insulin Hum... IVC SCH (17:00)
[2017-03-25] MEDS: Gabapentin 300 MG CAPSULE PO SCH (20:28)
[2017-03-25] MEDS: Norepinephrine 4 MG in D5% in Water 250 ML IVC SCH (21:27)
[2017-03-26] MEDS: *HR* HYDROmorphone (PF) 1 MG/ML SYRINGE IVP PRN ×7 (00:01→21:29)
[2017-03-26 04:01] LABS: BUN/Creatinine Ratio 39 (6-26); Blood Urea Nitrogen 39 mg/dL (7-20); Calcium 8.2 mg/dL (8.6-10.8); Carbon Dioxide 22 mEq/L (19-29); Chloride 108 mEq/L (98-109); Glucose 131 mg/dL (70-99); Magnesium 1.8 mg/dL (1.6-2.6); Osmolality,Calculated 295 (280-300); Phosphorous 4.1 mg/dL (2.3-4.7); Potassium 4.8 mEq/L (3.5-4.5); Sodium 137 mEq/L (136-145); eGFR For African Americans > 60 (> 60); eGFR For Non-African Americans 58 (> 60)
[2017-03-26] MEDS: *HR* Heparin 5,000 UNIT/ML VIAL SQ SCH ×2 (05:11→18:06)
[2017-03-26] MEDS: Metoclopramide 10 MG/2 ML VIAL IVP SCH ×2 (05:11)
[2017-03-26] MEDS: *HR* Metoprolol 5 MG/5 ML VIAL IVP SCH ×5 (05:11→23:53)
[2017-03-26] MEDS: Insulin LISPRO 300 UNITS/3 ML VIAL SQ SCH ×6 (05:12→23:59)
[2017-03-26] MEDS: Fluconazole 100 MG/50 ML 100 MG/50 ML BAG IVPB SCH (07:44)
[2017-03-26] MEDS: Nicotine 14 MG PATCH.TD24 TD SCH (07:45)
[2017-03-26] MEDS: Pantoprazole 40 MG VIAL IVP SCH (07:45)
[2017-03-26] MEDS: Aspirin 81 MG TAB.CHEW PO SCH (07:48)
[2017-03-26] MEDS: Insulin DETEMIR 100 UNIT/ML X5UNITS SQ SCH ×2 (09:43→20:37)
[2017-03-26] MEDS ORDERED: Neostigmine Methylsulfate 3 MG/3 ML SYRINGE IVC ONE (11:37)
[2017-03-26] MEDS ORDERED: NEOSTIGMINE METHYLSULFATE IVC SCH (12:15)
[2017-03-26] MEDS ORDERED: SODIUM CHLORIDE 0.9% IVC SCH (12:15)
--- NOTE | 2017-03-26 12:43 | General Surgery Progress Note ---
Date of Encounter: 03/26/17 Time of Encounter: 12:30 - Assessment and Plan (1) Rectal cancer Current Visit: Yes Status: Acute POD #14 Robotic rectal resection with diverting loop ileostomy with Dr. Akers POD #2 Diagnostic laparoscopy Pathology reviewed with patient per Dr. Akers NPO while awaiting return of bowel function (suspect the patient has a severe post-operative ileus) Repeat neostigmine today GI following D/C reglan NG tube to LIWS (placed 03/15/17) Continue TPN Coremaker Helper for management of TPN PPI therapy daily IS every 1 hour while awake Out of bed to chair TID and ambulate hallways with assistance Supportive care and pain control Repeat am labs (2) Ileus, postoperative Current Visit: Yes Status: Acute NPO NG tube to LIWS POD #2 Diagnostic laparoscopy Repeat neostigmine today Consult gastroenterology for assistance with neostigmine PICC line and TPN D/C reglan (3) Hyperglycemia Current Visit: Yes Status: Acute SSI every 4 hours- increased to high scale coverage Levemir- increase to 30 units BID Continue to monitor and adjust regimen as necessary (4) Urinary retention Current Visit: Yes Status: Acute Modi catheter to SD Urinalysis negative for UTI- many yeast (add diflucan 03/22) Flomax started 03/18/17 (5) Postoperative hematoma Current Visit: Yes Status: Acute Stable Hgb- 6.9>9.6 2 units PRBC transfused Check CBC now and in am Will continue to monitor and treat with supportive measures Qualifiers: Surgical complication system/body Area: subcutaneous tissue Procedure type : non-dermatologic Qualified Code(s): L76.32 - Postprocedural hematoma of skin and subcutaneous tissue following other procedure (6) DVT prophylaxis Current Visit: Yes Status: Acute Heparin 5,000 units SQ twice daily for DVT prophylaxis Ambulate hallways TID with assistance Subjective Patient reports: no new complaints, still having pain, bowel movement (620ml of liquid stool in the past 24 hours), afebrile Objective Vital Signs - Last 8 Hours Temp Pulse Resp BP Pulse Ox 03/26/17 11:52 98.4 F 03/26/17 11:50 97 03/26/17 11:00 102 20 140/68 96 03/26/17 10:00 92 20 138/62 96 03/26/17 09:00 101 18 131/64 96 11/24/17 08:00 103 18 141/71 100 03/26/17 07:53 98.5 F 03/26/17 07:30 93 03/26/17 07:00 96 18 147/68 97 03/26/17 06:00 92 20 139/63 93 03/26/17 05:00 95 12 147/67 100 Intake and Output 03/25/17 03/26/17 03/26/17 23:59 07:59 15:59 Intake Total 250 / 250 50 / 50 Output Total 1275 / 1275 900 / 900 420 / 420 Balance -1275 / -1275 -650 / -650 -370 / -370 Intake: IV Fluids 250 / 250 50 / 50 Intralipid 20% 250 ML @ 21 mls/ 250 / 250 hr IVPB DAILY@1700 [facility] Rx#: [id number] Diflucan 100 MG/50 ML 100 mg In 50 / 50 50 ml @ 50 mls/hr IVPB DAILY [facility] Rx#:[id number] Output: Stool 350 / 350 0 / 0 20 / 20 Catheter 525 / 525 550 / 550 300 / 300 Gastric Drainage 400 / 400 350 / 350 100 / 100 Other: Stool Consistency liquid Stool Color Brown Green Weight 80.15 kg Blood Glucose* 188 156 122 Patient Weight 03/26/17 23:59 Weight 80.15 kg - General physical appearance well developed, moderate pain - Eyes normal ocular movement - ENT dry mucosa, atraumatic, normocephalic - Neck Neck exam: trachea midline - Respiratory normal respiratory effort, clear to auscultation, other (diminished bibasilar bases) - Cardiovascular Cardiovascular exam: Present: tachycardia (HR-100) - Abdomen Abdomen: Present: bowel sounds present, soft, tender (expected post-operative tenderness), wound (NG tube to LIWS with bilious drainage noted (450ml noted since midnight); Ileostomy with 600ml of bilious drainage over the past 24 hours ) - Incision Incision: Present: clean and dry (left flank hematoma noted), intact - Genitourinary other (modi catheter to SD with clear yellow urine noted) - Neurologic CN 2-12 grossly intact - Psychiatric oriented to time, oriented to person, oriented to place, speech is normal, memory intact - Labs 03/25/17 05:55 03/26/17 03:25 Diabetes panel 03/26/17 Range/Units 03:25 Sodium 137 (136-145) mEq/L Potassium 4.8 H (3.5-4.5) mEq/L Chloride 108 (98-109) mEq/L Carbon Dioxide 22 (19-29) mEq/L BUN 39 H (7-20) mg/dL Creatinine 1.00 (0.57-1.11) mg/dL Glucose 131 H (70-99) mg/dL Calcium 8.2 L (8.6-10.8) mg/dL Calcium panel 03/26/17 Range/Units 03:25 Calcium 8.2 L (8.6-10.8) mg/dL Phosphorus 4.1 (2.3-4.7) mg/dL Pituitary panel 03/26/17 Range/Units 03:25 Sodium 137 (136-145) mEq/L Potassium 4.8 H (3.5-4.5) mEq/L Chloride 108 (98-109) mEq/L Carbon Dioxide 22 (19-29) mEq/L BUN 39 H (7-20) mg/dL Creatinine 1.00 (0.57-1.11) mg/dL Glucose 131 H (70-99) mg/dL Calcium 8.2 L (8.6-10.8) mg/dL Adrenal panel 03/26/17 Range/Units 03:25 Sodium 137 (136-145) mEq/L Potassium 4.8 H (3.5-4.5) mEq/L Chloride 108 (98-109) mEq/L Carbon Dioxide 22 (19-29) mEq/L BUN 39 H (7-20) mg/dL Creatinine 1.00 (0.57-1.11) mg/dL Glucose 131 H (70-99) mg/dL Calcium 8.2 L (8.6-10.8) mg/dL - VTE Documentation of Mechanical Device: Intermittent pneumatic compression device Consult Discharge Plan - Plan Referrals: Duong Akers DO [Partnered Physician] - Heaven Cho DO [Primary Care Provider] - 03/29/17 4:00 pm - Attending Attestation For this encounter, I have reviewed the ROCK CUTTER or PA documentation, treatment plan, and medical decision making; and I have had face to face time with this patient.
[2017-03-26] MEDS: Ondansetron 4 MG/2 ML VIAL IVP PRN ×2 (13:05→21:29)
[2017-03-26] MEDS: 0.9 % Sodium Chloride 1,000 ML IVC SCH (13:16)
[2017-03-26 13:46] LABS: Hematocrit 26.1 % (35.3-44.9); Hemoglobin 8.6 g/dL (11.5-15.4); Mean Corpuscular Hemoglobin 30.1 pg (28.0-33.3); Mean Corpuscular Volume 91.3 fL (83.0-100.0); Mean Platelet Volume 11.8 fL (9.4-12.4); Platelet Count 253 K/mcL (140-400); Red Blood Count 2.86 M/mcL (3.82-4.97); Red Cell Distribution Width 14.8 % (11.5-14.5)
[2017-03-26] MEDS ORDERED: Famotidine 20 MG/2 ML VIAL IVP ONE (16:02)
[2017-03-26] MEDS ORDERED: Clinimix E 5%-15% SOLUTION 2,000 ML with MVI, adult with vitamin K 10 ML, Insulin Hum... IVC SCH (17:00)
[2017-03-26] MEDS: Gabapentin 300 MG CAPSULE PO SCH (20:37)
[2017-03-26] MEDS: Norepinephrine 4 MG in D5% in Water 250 ML IVC SCH (20:38)
[2017-03-27] MEDS: Ondansetron 4 MG/2 ML VIAL IVP PRN (02:51)
[2017-03-27] MEDS: *HR* HYDROmorphone (PF) 1 MG/ML SYRINGE IVP PRN ×5 (02:52→20:36)
[2017-03-27 04:34] LABS: Hematocrit 22.1 % (35.3-44.9); Hemoglobin 7.2 g/dL (11.5-15.4); Mean Corpuscular HGB Conc 32.6 g/dL (31.6-35.5); Mean Corpuscular Volume 92.1 fL (83.0-100.0); Platelet Count 194 K/mcL (140-400); Red Cell Distribution Width 14.6 % (11.5-14.5)
[2017-03-27 04:47] LABS: BUN/Creatinine Ratio 31 (6-26); Calcium 8.1 mg/dL (8.6-10.8); Carbon Dioxide 23 mEq/L (19-29); Chloride 107 mEq/L (98-109); Glucose 157 mg/dL (70-99); Magnesium 1.3 mg/dL (1.6-2.6); Osmolality,Calculated 288 (280-300); Phosphorous 3.8 mg/dL (2.3-4.7); Potassium 4.3 mEq/L (3.5-4.5); Sodium 136 mEq/L (136-145); eGFR For African Americans > 60 (> 60); eGFR For Non-African Americans > 60 (> 60)
[2017-03-27 04:53] LABS: Blood Urea Nitrogen 21 mg/dL (7-20)
[2017-03-27] MEDS: *HR* Metoprolol 5 MG/5 ML VIAL IVP SCH ×3 (04:58→17:19)
[2017-03-27] MEDS: *HR* Heparin 5,000 UNIT/ML VIAL SQ SCH ×2 (04:58→17:19)
[2017-03-27] MEDS: Insulin LISPRO 300 UNITS/3 ML VIAL SQ SCH ×5 (05:05→20:52)
[2017-03-27] MEDS: Fluconazole 100 MG/50 ML 100 MG/50 ML BAG IVPB SCH (08:56)
[2017-03-27] MEDS: Nicotine 14 MG PATCH.TD24 TD SCH (08:56)
[2017-03-27] MEDS: Pantoprazole 40 MG VIAL IVP SCH (08:56)
[2017-03-27] MEDS ORDERED: Famotidine 20 MG/2 ML VIAL IVP SCH (09:00)
[2017-03-27] MEDS: Insulin DETEMIR 100 UNIT/ML X5UNITS SQ SCH ×2 (09:47→20:38)
[2017-03-27] MEDS: Aspirin 81 MG TAB.CHEW PO SCH (09:58)
--- NOTE | 2017-03-27 11:33 | General Surgery Progress Note ---
Date of Encounter: 03/27/17 Time of Encounter: 11:32 - Assessment and Plan (1) Ileus, postoperative Current Visit: Yes Status: Acute POD #15 Robotic rectal resection with diverting loop ileostomy, POD #3 Diagnostic laparoscopy currenlty with post operative ileus; CLD as patient can tolerate complete neostigmine today GI following Continue TPN In File Operator for management of TPN PPI therapy daily IS every 1 hour while awake Out of bed to chair TID and ambulate hallways with assistance Supportive care and pain control Repeat am labs- replete electrolytes PRN - follow up after neostigmine treatment Subjective Patient reports: no new complaints, feels better, tolerating liquids well Objective Vital Signs - Last 8 Hours Temp Pulse Resp BP Pulse Ox 03/27/17 11:00 92 18 132/72 100 03/27/17 10:00 74 12 116/61 97 03/27/17 09:00 79 14 122/72 97 03/27/17 08:01 98.4 F 03/27/17 08:00 79 16 127/63 98 03/27/17 07:00 96 16 118/48 98 03/27/17 06:00 76 18 120/54 98 03/27/17 05:00 73 16 137/64 97 03/27/17 04:00 99.0 F 90 18 139/61 96 Intake and Output 03/26/17 03/27/17 03/27/17 23:59 07:59 15:59 Intake Total 1917 250 / 250 50 / 50 Output Total 400 / 400 1030 / 1030 250 / 250 Balance 1518 / 1518 -780 / -780 -200 / -200 Intake: IV Fluids 250 / 250 50 / 50 Intralipid 20% 250 ML @ 21 mls/ 250 / 250 hr IVPB DAILY@1700 [facility] Rx#: [id number] Magnesium Sulfate Premix 2gm/ 50 / 50 50mL 2 gm In 50 ml @ 48.077 mls /hr IVPB ONCE ONE Rx#: [id number] Oral 0 / 0 0 / 0 Other 1917 Output: Stool 0 / 0 30 / 30 0 / 0 Catheter 400 / 400 1000 / 1000 250 / 250 Other: Meal jello Percent of Meal Consumed 15% Weight 79 kg Blood Glucose* 148 159 141 Patient Weight 03/27/17 23:59 Weight 79 kg - General physical appearance well developed, no distress - Eyes other (no scleral icterus) - Respiratory normal expansion, normal respiratory effort - Cardiovascular Cardiovascular exam: Present: RRR - Abdomen Abdomen: Present: soft, non tender (reported ostomy function; no gas nor stool in bag on exam) - Neurologic CN 2-12 grossly intact - Labs 03/27/17 04:12 03/27/17 04:12 Diabetes panel 03/27/17 Range/Units 04:12 Sodium 136 (136-145) mEq/L Potassium 4.3 (3.5-4.5) mEq/L Chloride 107 (98-109) mEq/L Carbon Dioxide 23 (19-29) mEq/L BUN 21 H D (7-20) mg/dL Creatinine 0.67 (0.57-1.11) mg/dL Glucose 157 H (70-99) mg/dL Calcium 8.1 L (8.6-10.8) mg/dL Calcium panel 03/27/17 Range/Units 04:12 Calcium 8.1 L (8.6-10.8) mg/dL Phosphorus 3.8 (2.3-4.7) mg/dL Pituitary panel 03/27/17 Range/Units 04:12 Sodium 136 (136-145) mEq/L Potassium 4.3 (3.5-4.5) mEq/L Chloride 107 (98-109) mEq/L Carbon Dioxide 23 (19-29) mEq/L BUN 21 H D (7-20) mg/dL Creatinine 0.67 (0.57-1.11) mg/dL Glucose 157 H (70-99) mg/dL Calcium 8.1 L (8.6-10.8) mg/dL Adrenal panel 03/27/17 Range/Units 04:12 Sodium 136 (136-145) mEq/L Potassium 4.3 (3.5-4.5) mEq/L Chloride 107 (98-109) mEq/L Carbon Dioxide 23 (19-29) mEq/L BUN 21 H D (7-20) mg/dL Creatinine 0.67 (0.57-1.11) mg/dL Glucose 157 H (70-99) mg/dL Calcium 8.1 L (8.6-10.8) mg/dL - VTE Documentation of Mechanical Device: Intermittent pneumatic compression device Consult Discharge Plan - Plan Referrals: Duong Akers DO [Partnered Physician] - Heaven Cho DO [Primary Care Provider] - 03/29/17 4:00 pm
[2017-03-27] MEDS: 0.9 % Sodium Chloride 1,000 ML IVC SCH (12:39)
[2017-03-27] MEDS ORDERED: Clinimix E 5%-15% SOLUTION 2,000 ML with MVI, adult with vitamin K 10 ML, Insulin Hum... IVC SCH (17:00)
[2017-03-27] MEDS: Gabapentin 300 MG CAPSULE PO SCH (20:38)
[2017-03-27] MEDS: Norepinephrine 4 MG in D5% in Water 250 ML IVC SCH (20:58)
[2017-03-28] MEDS: Insulin LISPRO 300 UNITS/3 ML VIAL SQ SCH ×6 (00:07→21:14)
[2017-03-28] MEDS: *HR* Metoprolol 5 MG/5 ML VIAL IVP SCH ×4 (00:08→17:19)
[2017-03-28] MEDS: *HR* HYDROmorphone (PF) 1 MG/ML SYRINGE IVP PRN ×4 (01:59→19:56)
[2017-03-28] MEDS: 0.9 % Sodium Chloride 1,000 ML IVC SCH ×3 (02:12→02:14)
[2017-03-28] MEDS ORDERED: *HR* Dextrose 50 % in Water (Syg) 50 ML SYRINGE IVP PRN (03:01)
[2017-03-28] MEDS ORDERED: Naloxone 0.4 MG/ML INJ IVP PRN (03:01)
[2017-03-28] MEDS ORDERED: D5% in Water 1,000 ML IVC PRN (03:01)
[2017-03-28] MEDS ORDERED: Dextrose Gel 15 GM PO PRN ×2 (03:01)
[2017-03-28] MEDS ORDERED: Chloraseptic Spray 177 ML BOTTLE MM PRN (03:01)
[2017-03-28] MEDS ORDERED: *HR* Atropine Sulfate 1 MG/10 ML SYRINGE IV PRN (03:01)
[2017-03-28] MEDS ORDERED: Clinimix E 5%-15% SOLUTION 2,000 ML with MVI, adult with vitamin K 10 ML, Insulin Hum... IVC SCH ×3 (03:01→17:00)
[2017-03-28] MEDS ORDERED: 0.9 % Sodium Chloride 1,000 ML IVC SCH (03:01)
[2017-03-28] MEDS ORDERED: D10% in Water 500 ML IVC PRN (03:01)
[2017-03-28] MEDS ORDERED: Ondansetron 4 MG/2 ML VIAL IVP PRN (03:01)
[2017-03-28 05:30] LABS: BUN/Creatinine Ratio 25 (6-26); Blood Urea Nitrogen 16 mg/dL (7-20); Calcium 8.3 mg/dL (8.6-10.8); Carbon Dioxide 24 mEq/L (19-29); Chloride 106 mEq/L (98-109); Glucose 138 mg/dL (70-99); Magnesium 1.4 mg/dL (1.6-2.6); Osmolality,Calculated 287 (280-300); Phosphorous 3.8 mg/dL (2.3-4.7); Potassium 4.4 mEq/L (3.5-4.5); Sodium 137 mEq/L (136-145); eGFR For African Americans > 60 (> 60); eGFR For Non-African Americans > 60 (> 60)
[2017-03-28] MEDS: *HR* Heparin 5,000 UNIT/ML VIAL SQ SCH ×2 (06:26→17:26)
[2017-03-28] MEDS: Norepinephrine 4 MG in D5% in Water 250 ML IVC SCH (07:09)
[2017-03-28] MEDS ORDERED: Fluconazole 100 MG/50 ML 100 MG/50 ML BAG IVPB SCH (09:00)
[2017-03-28] MEDS: Famotidine 20 MG/2 ML VIAL IVP SCH (09:59)
[2017-03-28] MEDS: Insulin DETEMIR 100 UNIT/ML X5UNITS SQ SCH ×2 (10:00→21:14)
[2017-03-28] MEDS: Pantoprazole 40 MG VIAL IVP SCH (10:00)
[2017-03-28] MEDS: Nicotine 14 MG PATCH.TD24 TD SCH (10:00)
[2017-03-28] MEDS: Aspirin 81 MG TAB.CHEW PO SCH (10:01)
--- NOTE | 2017-03-28 13:14 | General Surgery Progress Note ---
Date of Encounter: 03/28/17 Time of Encounter: 13:12 - Assessment and Plan (1) Ileus, postoperative Current Visit: Yes Status: Acute POD #16 Robotic rectal resection with diverting loop ileostomy, POD #4 Diagnostic laparoscopy currenlty with post operative ileus; currently resolving; Continue TPN; Retention Manager for management of TPN PPI therapy daily IS every 1 hour while awake Out of bed to chair TID and ambulate hallways with assistance Supportive care and pain control Repeat am labs- replete electrolytes PRN - advance diet to FLD - restart home meds - d/c modi Subjective Patient reports: no new complaints, feels better, still having pain, pain is less, tolerating liquids well, flatus, bowel movement Objective Vital Signs - Last 8 Hours Temp Pulse Resp BP Pulse Ox 03/28/17 10:21 98.8 F 82 14 125/72 99 03/28/17 07:25 98.7 F 75 14 109/66 97 Intake and Output 03/27/17 03/28/17 03/28/17 23:59 07:59 15:59 Intake Total 400 / 400 120 / 120 Output Total 1250 / 1250 1700 / 1700 Balance -850 / -850 -1580 / -1580 Intake: Oral 400 / 400 120 / 120 Output: Stool 0 / 0 Catheter 1250 / 1250 1700 / 1700 Other: Meal Lunch Percent of Meal Consumed 50% Weight 81.5 kg Blood Glucose* 136 180 201 Patient Weight 03/28/17 23:59 Weight 81.5 kg - General physical appearance well developed, well nourished, no distress - Respiratory normal expansion, normal respiratory effort - Cardiovascular Cardiovascular exam: Present: RRR - Abdomen Abdomen: Present: soft, tender (mildly tender suprapubically) Abdominal Tenderness: suprapubic - Incision Incision: Present: clean and dry, intact - Integumentary no rash - Neurologic CN 2-12 grossly intact - Psychiatric oriented to time, oriented to person, oriented to place - Labs 03/27/17 04:12 03/28/17 04:38 Diabetes panel 03/28/17 Range/Units 04:38 Sodium 137 (136-145) mEq/L Potassium 4.4 (3.5-4.5) mEq/L Chloride 106 (98-109) mEq/L Carbon Dioxide 24 (19-29) mEq/L BUN 16 (7-20) mg/dL Creatinine 0.64 (0.57-1.11) mg/dL Glucose 138 H (70-99) mg/dL Calcium 8.3 L (8.6-10.8) mg/dL Calcium panel 03/28/17 Range/Units 04:38 Calcium 8.3 L (8.6-10.8) mg/dL Phosphorus 3.8 (2.3-4.7) mg/dL Pituitary panel 03/28/17 Range/Units 04:38 Sodium 137 (136-145) mEq/L Potassium 4.4 (3.5-4.5) mEq/L Chloride 106 (98-109) mEq/L Carbon Dioxide 24 (19-29) mEq/L BUN 16 (7-20) mg/dL Creatinine 0.64 (0.57-1.11) mg/dL Glucose 138 H (70-99) mg/dL Calcium 8.3 L (8.6-10.8) mg/dL Adrenal panel 03/28/17 Range/Units 04:38 Sodium 137 (136-145) mEq/L Potassium 4.4 (3.5-4.5) mEq/L Chloride 106 (98-109) mEq/L Carbon Dioxide 24 (19-29) mEq/L BUN 16 (7-20) mg/dL Creatinine 0.64 (0.57-1.11) mg/dL Glucose 138 H (70-99) mg/dL Calcium 8.3 L (8.6-10.8) mg/dL - VTE Documentation of Mechanical Device: Intermittent pneumatic compression device Consult Discharge Plan - Plan Referrals: Duong Akers DO [Partnered Physician] - Heaven Cho DO [Primary Care Provider] - 03/29/17 4:00 pm
[2017-03-28] MEDS: Gabapentin 300 MG CAPSULE PO SCH (21:13)
[2017-03-29] MEDS: Insulin LISPRO 300 UNITS/3 ML VIAL SQ SCH ×6 (01:20→21:57)
[2017-03-29] MEDS: *HR* Metoprolol 5 MG/5 ML VIAL IVP SCH ×5 (01:20→23:39)
[2017-03-29] MEDS: *HR* HYDROmorphone (PF) 1 MG/ML SYRINGE IVP PRN (03:06)
[2017-03-29] MEDS: *HR* Heparin 5,000 UNIT/ML VIAL SQ SCH ×2 (06:06→17:56)
[2017-03-29 08:08] LABS: BUN/Creatinine Ratio 28 (6-26); Blood Urea Nitrogen 18 mg/dL (7-20); Calcium 8.4 mg/dL (8.6-10.8); Carbon Dioxide 25 mEq/L (19-29); Chloride 105 mEq/L (98-109); Glucose 206 mg/dL (70-99); Magnesium 1.4 mg/dL (1.6-2.6); Osmolality,Calculated 292 (280-300); Phosphorous 4.2 mg/dL (2.3-4.7); Potassium 4.3 mEq/L (3.5-4.5); Sodium 137 mEq/L (136-145); eGFR For African Americans > 60 (> 60); eGFR For Non-African Americans > 60 (> 60)
[2017-03-29] MEDS: Nicotine 14 MG PATCH.TD24 TD SCH (09:26)
[2017-03-29] MEDS: Aspirin 81 MG TAB.CHEW PO SCH (09:27)
[2017-03-29] MEDS: Pantoprazole 40 MG VIAL IVP SCH (09:28)
[2017-03-29] MEDS: Insulin DETEMIR 100 UNIT/ML X5UNITS SQ SCH ×2 (09:28→21:56)
[2017-03-29] MEDS: Famotidine 20 MG/2 ML VIAL IVP SCH (09:30)
[2017-03-29] MEDS: Norepinephrine 4 MG in D5% in Water 250 ML IVC SCH (09:44)
[2017-03-29] MEDS: *HR* HYDROcodone/Acet 7.5/325 mg TABLET PO PRN ×2 (09:47→20:14)
[2017-03-29] MEDS ORDERED: *HR* HYDROcodone/Acet 7.5/325 mg TABLET PO SCH (12:00)
--- NOTE | 2017-03-29 13:15 | General Surgery Progress Note ---
Date of Encounter: 03/29/17 Time of Encounter: 13:10 - Assessment and Plan (1) Rectal cancer Current Visit: Yes Status: Acute POD #17 Robotic rectal resection with diverting loop ileostomy with Dr. Akers POD #5 Diagnostic laparoscopy Pathology reviewed with patient per Dr. Akers Advance to diabetic diet; protein supplements TID Wean TPN Product Trainer notified to D/C TPN PPI therapy daily IS every 1 hour while awake Out of bed to chair TID and ambulate hallways with assistance Supportive care and pain control Repeat am labs (2) Ileus, postoperative Current Visit: Yes Status: Resolved Advance to diabetic diet with protein supplements TID POD #5 Diagnostic laparoscopy Wean TPN (3) Hyperglycemia Current Visit: Yes Status: Acute SSI every ACHS- increased to high scale coverage Levemir- continue 30 units BID Continue to monitor and adjust regimen as necessary (4) Urinary retention Current Visit: Yes Status: Acute Campbell catheter removed Urinalysis negative for UTI- many yeast (transition to PO diflucan) Flomax started 03/18/17 (5) Postoperative hematoma Current Visit: Yes Status: Acute Stable Hgb- 6.9>9.6>8.6>7.2 2 units PRBC transfused Check am labs Will continue to monitor and treat with supportive measures Qualifiers: Surgical complication system/body Area: subcutaneous tissue Procedure type : non-dermatologic Qualified Code(s): L76.32 - Postprocedural hematoma of skin and subcutaneous tissue following other procedure (6) DVT prophylaxis Current Visit: Yes Status: Acute Heparin 5,000 units SQ twice daily for DVT prophylaxis Ambulate hallways TID with assistance Subjective Patient reports: no new complaints, feels better, still having pain, pain is less, tolerating liquids well (full liquids), voiding w/o difficulty, flatus, bowel movement (via ileostomy), afebrile Objective Vital Signs - Last 8 Hours Temp Pulse Resp BP Pulse Ox 03/29/17 10:32 98.4 F 96 16 133/70 100 03/29/17 07:09 97.5 F L 78 14 102/78 100 03/29/17 06:05 98.2 F 85 17 136/68 96 Intake and Output 03/28/17 03/29/17 03/29/17 23:59 07:59 15:59 Intake Total 2009 250 / 250 Output Total 725 / 725 700 / 700 800 / 800 Balance 1285 / 1285 -450 / -450 -800 / -800 Intake: IV Fluids 250 / 250 Intralipid 20% 250 ML @ 21 mls/ 250 / 250 hr IVPB DAILY@1700 [facility] Rx#: [id number] Infusion Intake 2009 Output: Urine 200 / 200 600 / 600 600 / 600 Stool 525 / 525 100 / 100 Total Dialysis Output 200 / 200 Other: Stool Color Brown Blood Glucose* 214 203 231 - General physical appearance well developed, no distress, moderate pain (improving) - Eyes normal ocular movement - ENT normal mucosa, atraumatic, normocephalic - Neck Neck exam: trachea midline - Respiratory normal respiratory effort, clear to auscultation - Cardiovascular Cardiovascular exam: Present: RRR - Abdomen Abdomen: Present: bowel sounds present, soft, tender (expected post-operative tenderness), wound (Ileostomy is pink and moist with soft green stool noted; ecchymosis noted to left flank unchanged) - Incision Incision: Present: clean and dry, intact - Neurologic CN 2-12 grossly intact - Psychiatric oriented to time, oriented to person, oriented to place, speech is normal, memory intact - Labs 03/27/17 04:12 03/29/17 07:37 Diabetes panel 03/29/17 Range/Units 07:37 Sodium 137 (136-145) mEq/L Potassium 4.3 (3.5-4.5) mEq/L Chloride 105 (98-109) mEq/L Carbon Dioxide 25 (19-29) mEq/L BUN 18 (7-20) mg/dL Creatinine 0.65 (0.57-1.11) mg/dL Glucose 206 H (70-99) mg/dL Calcium 8.4 L (8.6-10.8) mg/dL Calcium panel 03/29/17 Range/Units 07:37 Calcium 8.4 L (8.6-10.8) mg/dL Phosphorus 4.2 (2.3-4.7) mg/dL Pituitary panel 03/29/17 Range/Units 07:37 Sodium 137 (136-145) mEq/L Potassium 4.3 (3.5-4.5) mEq/L Chloride 105 (98-109) mEq/L Carbon Dioxide 25 (19-29) mEq/L BUN 18 (7-20) mg/dL Creatinine 0.65 (0.57-1.11) mg/dL Glucose 206 H (70-99) mg/dL Calcium 8.4 L (8.6-10.8) mg/dL Adrenal panel 03/29/17 Range/Units 07:37 Sodium 137 (136-145) mEq/L Potassium 4.3 (3.5-4.5) mEq/L Chloride 105 (98-109) mEq/L Carbon Dioxide 25 (19-29) mEq/L BUN 18 (7-20) mg/dL Creatinine 0.65 (0.57-1.11) mg/dL Glucose 206 H (70-99) mg/dL Calcium 8.4 L (8.6-10.8) mg/dL - VTE Documentation of Mechanical Device: Intermittent pneumatic compression device Consult Discharge Plan - Plan Referrals: Duong Akers DO [Partnered Physician] - Heaven Cho DO [Primary Care Provider] - 03/29/17 4:00 pm - Attending Attestation For this encounter, I have reviewed the PASS WORKER or PA documentation, treatment plan, and medical decision making; and I have had face to face time with this patient.
[2017-03-29] MEDS: Fluconazole 100 MG TABLET PO SCH (13:31)
[2017-03-29] MEDS ORDERED: Clinimix E 5%-15% SOLUTION 2,000 ML with MVI, adult with vitamin K 10 ML, Insulin Hum... IVC SCH (17:00)
[2017-03-29] MEDS: Gabapentin 300 MG CAPSULE PO SCH (21:55)
[2017-03-30 06:13] LABS: Basophils # 0.1 K/mcL (0.0-0.2); Basophils % 0.6 %; Eosinophils # 0.2 K/mcL (0.0-0.6); Eosinophils % 2.5 %; Hematocrit 24.8 % (35.3-44.9); Hemoglobin 7.9 g/dL (11.5-15.4); Immature Granulocytes % 4.8 % (0-4); Lymphocytes # 0.5 K/mcL (0.6-4.6); Lymphocytes % 6.1 %; Mean Corpuscular HGB Conc 31.9 g/dL (31.6-35.5); Mean Corpuscular Hemoglobin 29.6 pg (28.0-33.3); Mean Corpuscular Volume 92.9 fL (83.0-100.0); Mean Platelet Volume 12.5 fL (9.4-12.4); Monocytes # 0.8 K/mcL (0.0-1.3); Neutrophils # 6.1 K/mcL (1.6-8.9); Platelet Count 234 K/mcL (140-400); Red Blood Count 2.67 M/mcL (3.82-4.97); Red Cell Distribution Width 14.9 % (11.5-14.5)
[2017-03-30] MEDS: *HR* Heparin 5,000 UNIT/ML VIAL SQ SCH (06:20)
[2017-03-30 06:40] LABS: BUN/Creatinine Ratio 21 (6-26); Blood Urea Nitrogen 14 mg/dL (7-20); Calcium 8.8 mg/dL (8.6-10.8); Carbon Dioxide 22 mEq/L (19-29); Chloride 105 mEq/L (98-109); Glucose 117 mg/dL (70-99); Magnesium 1.4 mg/dL (1.6-2.6); Osmolality,Calculated 286 (280-300); Phosphorous 4.5 mg/dL (2.3-4.7); Potassium 4.3 mEq/L (3.5-4.5); Sodium 137 mEq/L (136-145); eGFR For African Americans > 60 (> 60); eGFR For Non-African Americans > 60 (> 60)
[2017-03-30] MEDS: *HR* Metoprolol 5 MG/5 ML VIAL IVP SCH ×2 (07:03→11:58)
[2017-03-30 07:24] VITALS: BP 103/58
[2017-03-30] MEDS ORDERED: Acetaminophen IV 1,000 MG/100 ML INFUS..BTL ONE (07:32)
[2017-03-30] MEDS ORDERED: *HR* Vasopressin 20 UNIT/ML VIAL ONE (07:33)
[2017-03-30] MEDS: Insulin LISPRO 300 UNITS/3 ML VIAL SQ SCH ×2 (08:00→11:58)
[2017-03-30] MEDS: Aspirin 81 MG TAB.CHEW PO SCH (08:55)
[2017-03-30] MEDS: Fluconazole 100 MG TABLET PO SCH (08:56)
[2017-03-30] MEDS: Insulin DETEMIR 100 UNIT/ML X5UNITS SQ SCH (08:56)
[2017-03-30] MEDS: Famotidine 20 MG/2 ML VIAL IVP SCH (08:57)
[2017-03-30] MEDS: Nicotine 14 MG PATCH.TD24 TD SCH (08:57)
[2017-03-30] MEDS: *HR* HYDROcodone/Acet 7.5/325 mg TABLET PO PRN (08:58)
--- NOTE | 2017-03-30 10:50 | Discharge Summary ---
Date of Encounter: 03/30/17 Time of Encounter: 10:00 - Discharge Diagnosis (1) Rectal cancer Priority: Primary Status: Acute (2) Ileus, postoperative Priority: Secondary Status: Resolved (3) Hyperglycemia Priority: Secondary Status: Chronic (4) Urinary retention Priority: Secondary Status: Resolved (5) Postoperative hematoma Priority: Secondary Status: Acute Qualifiers: Surgical complication system/body Area: subcutaneous tissue Procedure type : non-dermatologic Qualified Code(s): L76.32 - Postprocedural hematoma of skin and subcutaneous tissue following other procedure - Discharge Medications Prescriptions: HYDROcodone/Acet 7.5/325 mg [[place] 7.5-325 mg] 1 tab PO Q4HR PRN #30 tablet PRN Reason: Pain Ibuprofen [Motrin] 600 mg PO Q8HR #40 tab Commode - Three In One [THREE IN ONE COMMODE] 1 each .ROUTE DAILY #1 each Diaper,Brief,Adult, Disposable [Depend Fit-Flex] 1 each MC AD #1 pkg Lactose-Reduced Food [Ensure High Protein] 1 bottle PO TID #90 can Underpads [Underpad] 1 each MC BID #1 pkg Home Medications: Aspirin 81 mg PO DAILY 10/22/16 [History] Cholecalciferol (D-3) [Vitamin D] 1,000 unit PO DAILY 10/22/16 [History] Clopidogrel [Plavix] 75 mg PO DAILY 10/22/16 [History] Duloxetine HCl [Cymbalta] 120 mg PO DAILY 10/22/16 [History] Gabapentin [Neurontin] 600 mg PO HS 10/22/16 [History] Insulin Glargine,Hum.rec.anlog [Lantus Solostar] 40 unit SQ HS PRN 10/22/16 [ History] Losartan Potassium [Cozaar] 50 mg PO DAILY 10/22/16 [History] Metformin HCl [Metformin HCl ER] 1,000 mg PO BID 10/22/16 [History] Simvastatin [Zocor] 40 mg PO HS 10/22/16 [History] Exenatide [Byetta] 5 mcg SQ BID 01/22/17 [History] Commode - Three In One [THREE IN ONE COMMODE] 1 each .ROUTE DAILY #1 each [Rx] Diaper,Brief,Adult, Disposable [Depend Fit-Flex] 1 each AD #1 pkg 03/30/17 [ Rx] HYDROcodone/Acet 7.5/325 mg [[place] 7.5-325 mg] 1 tab PO Q4HR PRN #30 tablet [Rx] Ibuprofen [Motrin] 600 mg PO Q8HR #40 tab 03/30/17 [Rx] Lactose-Reduced Food [Ensure High Protein] 1 bottle PO TID #90 can 03/30/17 [Rx] Underpads [Underpad] 1 each BID #1 pkg 03/30/17 [Rx] Allergies/Adverse Reactions: 3 Allergy/AdvReac Type Severity Reaction Status Date / Time diphenhydramine Allergy Itching Verified 03/12/17 06:26 [From [facility]] General Surgery Exam Initial Vital Signs Temp Pulse Resp BP Pulse Ox 97.9 F 81 18 138/80 100 03/12/17 06:27 03/12/17 06:27 03/12/17 06:27 03/12/17 06:27 03/12/17 06:27 - General physical appearance well developed, well nourished, no distress - Eyes PERRL, normal ocular movement - ENT normal mucosa, atraumatic, normocephalic - Neck trachea midline - Respiratory normal respiratory effort, clear to auscultation - Cardiovascular Cardiovascular exam: Present: RRR - Abdomen Abdomen general surgery: Present: bowel sounds present, soft, tender (Expected postoperative tenderness), wound (Ileostomy is pink and moist with soft brown stool noted; hematoma noted to left flank unchanged) - Incision Incision: Present: clean and dry, intact - Integumentary Integumentary general surgery: Present: warm and dry - Neurologic Present: CN 2-12 grossly intact - Musculoskeletal Present: other (Moderate deconditioning) - Psychiatric Psychiatric general surgery: Present: appropriate, oriented to person, oriented to place, oriented to time, speech is normal, memory intact Date of admission: 03/12/17 13:08 Primary care physician: Heaven Cho DO Consults: 03/15/17 13:57 Consult to Wound Care [CONS] Routine Reason for Consult: New ostomy teaching Time Notified: 13:59 Call Completed: Yes 03/16/17 11:46 Consult to Invasive Line Access Team [CONS] Routine Reason for Consult: Picc Line Insertion Line Type: PICC Time Notified: 11:46 Call Completed: Yes 03/16/17 11:48 consult to main entree cook and cashier [Consult to Nutrition] [CONS] Routine Comment: Total fluid rate 100ml/hour (MIV + TPN) Consulting Provider: NUTRITION Reason for Dietary Consult: TPN Start and Manage 03/23/17 09:35 Consult to Gastroenterology [CONS] Stat Consulting Provider: Gastroenterology Madeleine Reason for Consult: Severe post-operative ileus Time Notified: 09:35 Call Completed: Yes Discharging clinician: Duong Akers (Atul Patel) Anticipated date of discharge: 03/30/17 - Patient Status Disposition: Home Health Service Condition: Good Functional capacity at discharge: independent ambulation Overall status at discharge: patient is progressing back to baseline - Discharge Instructions Follow Up With: Heaven Cho DO [Primary Care Provider] - 04/05/17 7:00 pm (1 week hospital follow-up) Jennifer Patel CNP [Advanced Practice Nurse] - 04/08/17 9:15 am (Surgery follow-up) Kelvin Silva MD [Partnered Physician] - 04/22/17 10:20 am (2 week hospital follow-up- rectal cancer) Additional Instructions: #1 may shower, no tub bath for 2 weeks #2 wash incisions with soap and water and pat dry daily #3 no lifting, pushing, pulling more than 15 pounds for the next 4 weeks #4 no driving until off narcotics for 24 hours and able to safely react in the car #5 may climb stairs Ostomy care- change ostomy appliance every 5-7 days and as needed if leaking. Empty bag 3 times per day and as needed if greater than one third full. (2-1/4 inch appliance; 1- 1/2 inch convex insert) - Diet and Activity Activity: other (See additional instructions above) Diet: diabetic diet - Hospital Course Hospital course: Ms. Mckeon is a 56 year old female who has been followed by Dr. Akers for a rectal cancer. She is s/p a robotic assisted low anterior resection with diverting ileostomy. Her post-operative course was complicated by a prolonged post-operative ileus. She was initially treated conservatively with bowel rest, NG tube to LIWS, scheduled reglan. She was started on TPN therapy for nutritional support. The main entree cook and cashier was consulted for start and management of TPN. The patient did not progress with these measures. Gastroenterology was consulted for neostigmine infusion. Post-operative ileus continued after initial neostimine infusion. She was taken back to the operating room for a diagnostic laparoscopy with Dr. Akers. There was no source of obstruction identified. The patient was continued on bowel rest and supportive measures. She did have a post-operative bleed from a lap site. She was tranfused with 2 units of PRBC due to symptomatic acute blood loss anemia. Gastroenterology gave subsequent doses of neostigmine. She did have return of bowel function after subsequent doses of neostigmine were given. The patient was started on a liquid diet and her NG tube was removed with return of bowel function. She tolerated advancement of her diet and is currently tolerating a diabetic diet. Her post- operative pain is well controlled with [place] 7.5/325mg. She did experience a fall while in the hospital (she slipped on urine in her room). She did have a CT of the head, neck, spine which showed no acute abnormalities. She is tolerating a diet without nausea/vomiting. Her vitals are stable and she is afebrile. She is voiding and ambulating without difficulty. She did receive ostomy education from the ostomy nurse during her hospital stay. We will begin discharge planning to home with home health care and plan for outpatient follow- up in the next 7-10 days. - Time Spent with Patient Total time spent providing and/or coordinating discharge services: Greater than 30 minutes Labs on day of discharge: Labs from last 24 hours 03/30/17 03/30/17 03/30/17 07:20 05:30 05:30 WBC 8.1 RBC 2.67 L Hgb 7.9 L Hct 24.8 L MCV 92.9 MCH 29.6 MCHC 31.9 RDW 14.9 H Plt Count 234 MPV 12.5 H Immature Gran % 4.8 H Seg Neutrophils % 76.0 Lymphocytes % 6.1 Monocytes % 10.0 Eosinophils % 2.5 Basophils % 0.6 Neutrophils # 6.1 Lymphocytes # 0.5 L Monocytes # 0.8 Eosinophils # 0.2 Basophils # 0.1 Nucleated RBCs/100 WBC 1.0 H Sodium 137 Potassium 4.3 Chloride 105 Carbon Dioxide 22 BUN 14 Creatinine 0.66 Est GFR ( Amer) > 60 Est GFR (Non-Af Amer) > 60 BUN/Creatinine Ratio 21 Glucose 117 H POC Glucose 112 H Calculated Osmolality 286 Calcium 8.8 Phosphorus 4.5 Magnesium 1.4 L 03/29/17 03/29/17 03/29/17 21:49 16:14 11:34 WBC RBC Hgb Hct MCV MCH MCHC RDW Plt Count MPV Immature Gran % Seg Neutrophils % Lymphocytes % Monocytes % Eosinophils % Basophils % Neutrophils # Lymphocytes # Monocytes # Eosinophils # Basophils # Nucleated RBCs/100 WBC Sodium Potassium Chloride Carbon Dioxide BUN Creatinine Est GFR ( Amer) Est GFR (Non-Af Amer) BUN/Creatinine Ratio Glucose POC Glucose 184 H 154 H 231 H Calculated Osmolality Calcium Phosphorus Magnesium 03/29/17 09:20 WBC RBC Hgb Hct MCV MCH MCHC RDW Plt Count MPV Immature Gran % Seg Neutrophils % Lymphocytes % Monocytes % Eosinophils % Basophils % Neutrophils # Lymphocytes # Monocytes # Eosinophils # Basophils # Nucleated RBCs/100 WBC Sodium Potassium Chloride Carbon Dioxide BUN Creatinine Est GFR ( Amer) Est GFR (Non-Af Amer) BUN/Creatinine Ratio Glucose POC Glucose 228 H Calculated Osmolality Calcium Phosphorus Magnesium - Impressions ITS Impressions Chest/Abdomen X-ray 03/15/17 13:48 IMPRESSION: Findings compatible with high-grade distal small bowel obstruction. No free air. No acute process in the chest. D/ / Axel Casas MD / Axel Casas MD Interpreting Provider: Axel Casas MD X-Ray 03/15/17 15:44 IMPRESSION: NG appears in satisfactory position coiled in the stomach. High-grade distal small-bowel obstruction re- demonstrated without evidence of free air. D/ / Axel Casas MD / Axel Casas MD Interpreting Provider: Axel Casas MD X-Ray 03/17/17 09:17 IMPRESSION: The feeding tube is inserted with its tip in the antrum and side hole in the body of the stomach. Multiple loops of dilated small bowel, likely related to small bowel obstruction, grossly stable. D/ / Taco Sorto MD / Taco Sorto MD Interpreting Provider: Taco Sorto MD X-Ray 03/17/17 11:50 IMPRESSION: Diffusely distended proximal small bowel loops with contrast in the proximal small bowel as described above. No free air. D/ / Axel Casas MD / Axel Casas MD Interpreting Provider: Axel Casas MD Abdomen/Pelvis CT 03/18/17 15:29 IMPRESSION: Moderate right-sided hydronephrosis and hydroureter with no obstructing ureteral stone. Dilated loops of small bowel are seen, status post creation of a diverting ileostomy. There may be some small bowel narrowing at the ileostomy site, accounting for the proximal small bowel dilatation. A few tiny foci of free air are seen in the abdomen, likely postoperative. Gas is seen within the bladder, likely from prior Campbell. Recommend correlation with urinalysis to exclude cystitis D/ / Florentin Alicea MD / Florentin Alicea MD Interpreting Provider: Florentin Alicea MD Small Bowel X-Ray 03/22/17 08:48 IMPRESSION: Dilated small bowel loops into the pelvis are opacified, likely distal jejunum or proximal ileum. Multiple additional small bowel loops proximal to the ileostomy are not opacified. However a definite transition point is not identified. Patient was nauseated throughout the study and vomited 3 L of enteric contents. Therefore no further images were obtained after 22 hours. Findings remain indeterminate for postoperative ileus versus small bowel obstruction. Findings were discussed with Dr. Akers at 8:30 a.m. on 03/23/2017. D/ / 03/23/2017 09:15:54 Basil Bardales MD / [facility] Interpreting Provider: Basil Bardales MD X-Ray 03/23/17 16:00 IMPRESSION: Continued evidence of small bowel dilation which is similar to mildly decreased when compared to the previous examination. Again, ileus in distal bowel obstruction remain considered. D/ / Oliver Torres MD / Oliver Torres MD Interpreting Provider: Oliver Torres MD Head CT 03/29/17 16:41 IMPRESSION: Mild cerebral atrophy. Mild chronic small vessel ischemic changes. No acute intracranial abnormality. D/ / 03/29/2017 19:20:24 Guerda Gamez MD / [facility] Interpreting Provider: Guerda Gamez MD Cervical Spine CT 03/29/17 16:43 IMPRESSION: No acute abnormality of the cervical spine. D/ / Rossy Thornton Cha, MD / Rossy Thornton Cha, MD Interpreting Provider: Rossy Thornton Cha, MD Lumbar Spine CT 03/29/17 17:36 IMPRESSION: 1. No acute osseous abnormality of the lumbar spine. 2. Mild L5-S1 degenerative disc disease. 3. Stable mild right hydroureteronephrosis. 4. Trace nonspecific intraperitoneal free fluid. D/ / Carlos Leiva MD / Carlos Leiva MD Interpreting Provider: Carlos Leiva MD Thoracic Spine CT 03/29/17 17:37 IMPRESSION: Slight to mild thoracic spondylosis. No acute abnormality. D/ / Hipolito Quarles MD / Hipolito Quarles MD Interpreting Provider: Hipolito Quarles MD
--- NOTE | 2017-03-30 11:42 | Physician Discharge Referral ---
Home Health/Hosp Referral Info Transfer to: Home Health Attending Provider: Dr. Ivan Akers Provider in Charge Post Discharge: Other (PCP and Dr. Ivan Akers) - Diagnosis (1) Rectal cancer Priority: Primary Status: Acute (2) Ileus, postoperative Priority: Secondary Status: Resolved (3) Hyperglycemia Priority: Secondary Status: Chronic (4) Urinary retention Priority: Secondary Status: Resolved (5) Postoperative hematoma Priority: Secondary Status: Acute - Respiratory Orders None Smoking Cessation: Smoking cessation has been advised. For more information, call the [place] Tobacco Quit Line at 9-432-PFPR-NOW. - Dressing/Wound Care Site: Ileostomy Type of Dressing/Treatments w/Frequency: Ostomy care- change ostomy appliance every 5-7 days and as needed if leaking. Empty bag 3 times per day and as needed if greater than one third full. (2-1/4 inch appliance; 1- 1/2 inch convex insert) - Diet/Nutrition Diet/Nutrition Orders: No Concentrated Sweets (Diabetic diet; Ensure (1 can TID) ) - Activity Activity Orders: Ambulate, Chair - Services Needed Following services are medically necessary services: Nursing, Home Health Aide, Physical Therapy, Occupational Therapy Other Treatments: #1 may shower, no tub bath for 2 weeks #2 wash incisions with soap and water and pat dry daily #3 no lifting, pushing, pulling more than 15 pounds for the next 4 weeks #4 no driving until off narcotics for 24 hours and able to safely react in the car #5 may climb stairs Ostomy care- change ostomy appliance every 5-7 days and as needed if leaking. Empty bag 3 times per day and as needed if greater than one third full. (2-1/4 inch appliance; 1- 1/2 inch convex insert) - Transfer Medications Prescriptions: HYDROcodone/Acet 7.5/325 mg [[place] 7.5-325 mg] 1 tab PO Q4HR PRN #30 tablet PRN Reason: Pain Ibuprofen [Motrin] 600 mg PO Q8HR #40 tab Commode - Three In One [THREE IN ONE COMMODE] 1 each .ROUTE DAILY #1 each Diaper,Brief,Adult, Disposable [Depend Fit-Flex] 1 each MC AD #1 pkg Lactose-Reduced Food [Ensure High Protein] 1 bottle PO TID #90 can Underpads [Underpad] 1 each MC BID #1 pkg Home Medications: Aspirin 81 mg PO DAILY 10/22/16 [History] Cholecalciferol (D-3) [Vitamin D] 1,000 unit PO DAILY 10/22/16 [History] Clopidogrel [Plavix] 75 mg PO DAILY 10/22/16 [History] Duloxetine HCl [Cymbalta] 120 mg PO DAILY 10/22/16 [History] Gabapentin [Neurontin] 600 mg PO HS 10/22/16 [History] Insulin Glargine,Hum.rec.anlog [Lantus Solostar] 40 unit SQ HS PRN 10/22/16 [ History] Losartan Potassium [Cozaar] 50 mg PO DAILY 10/22/16 [History] Metformin HCl [Metformin HCl ER] 1,000 mg PO BID 10/22/16 [History] Simvastatin [Zocor] 40 mg PO HS 10/22/16 [History] Exenatide [Byetta] 5 mcg SQ BID 01/22/17 [History] Commode - Three In One [THREE IN ONE COMMODE] 1 each .ROUTE DAILY #1 each [Rx] Diaper,Brief,Adult, Disposable [Depend Fit-Flex] 1 each MC AD #1 pkg 03/30/17 [ Rx] HYDROcodone/Acet 7.5/325 mg [[place] 7.5-325 mg] 1 tab PO Q4HR PRN #30 tablet [Rx] Ibuprofen [Motrin] 600 mg PO Q8HR #40 tab 03/30/17 [Rx] Lactose-Reduced Food [Ensure High Protein] 1 bottle PO TID #90 can 03/30/17 [Rx] Underpads [Underpad] 1 each BID #1 pkg 03/30/17 [Rx] Allergies/Adverse Reactions: 3 Allergy/AdvReac Type Severity Reaction Status Date / Time diphenhydramine Allergy Itching Verified 03/12/17 06:26 [From [facility]] Certification: Further, I certify that my clinical findings support that this patient is homebound (i.e. absences from home require considerable and taxing effort and are for medical reasons or yarsani services or infrequently or short duration when for other reasons) because: Homebound Reason: Patient requires assistance of a person or device to safely leave home, Post-surgery restriction and or conditions limit ability to leave home, Leaving home requires considerable and taxing effort due to condition Attestation: My signature below is to certify that this patient is under my care and that I, or nurse practitioner, or a physician's office clerk assistant working with me, has a face-to -face encounter with this patient.
== END 2017-03-30 12:56 | disposition home health service (06) | DRG 230 ==
LOC: SAMDAY 06:06 → 3ANU 13:08 → ICNU 03-23 14:26 → 3ANU 03-28 04:05
PROVIDERS: ADMIT Surgery; ATTEND Surgery

== ENCOUNTER 2017-04-12 14:54 | Observation (INO) ==
[2017-04-12] MEDS ORDERED: Lido/Epi/Tetra Gel 2 ML SYRINGE TP ONE (17:12)
--- NOTE | 2017-04-12 17:23 | Emergency Department Note ---
Disposition Clinical Impression: Ileostomy care, Pain at surgical site Disposition: Admitted As Inpatient Condition: Good Time of Disposition: 18:23 Abdominal Pain HPI - General Chief Complaint: ED Abdominal Pain Stated Complaint: abdominal pain, irritated stoma Time Seen by Provider: 04/12/17 15:01 Source: patient, family, EMS Nursing Notes Reviewed: Yes Vital Signs Reviewed: Yes - History of Present Illness HPI Narrative: 56-year-old female complains of abdominal pain around her ileostomy site times today. Patient has had multiple changes today and on the third change it was too painful to touch and patient took a [place] and called ambulance for concerns of an infection. Consistency: constant Pain Severity: severe Pain Scale: 10 Quality: sharp Radiation: other (Around ileostomy) Migration to: no migration Improves with: medication Worsens with: movement, other (Touch) Context: recent surgery/procedure Associated symptoms: Reports: denies other symptoms - Related Data Home Medications Medication Instructions Recorded Confirmed Aspirin 81 mg PO DAILY 10/22/16 04/12/17 Cholecalciferol (D-3) [Vitamin D] 1,000 unit PO DAILY 10/22/16 04/12/17 Clopidogrel [Plavix] 75 mg PO DAILY 10/22/16 04/12/17 Duloxetine HCl [Cymbalta] 120 mg PO DAILY 10/22/16 04/12/17 Gabapentin [Neurontin] 600 mg PO HS 10/22/16 04/12/17 Insulin Glargine,Hum.rec.anlog 40 unit SQ HS 10/22/16 03/12/17 [Lantus Solostar] Losartan Potassium [Cozaar] 50 mg PO DAILY 10/22/16 04/12/17 Metformin HCl [Metformin HCl ER] 1,000 mg PO BID 10/22/16 04/12/17 Simvastatin [Zocor] 40 mg PO HS 10/22/16 04/12/17 Exenatide [Byetta] 5 mcg SQ BID 01/22/17 03/12/17 Nut.tx.impaired Digest Fxn [Ensure 1 bottle PO BID 04/12/17 04/12/17 Clear] Allergies Allergy/AdvReac Type Severity Reaction Status Date / Time diphenhydramine Allergy Itching Verified 03/12/17 06:26 [From Benadryl] All systems ED: reviewed and negative except as stated. Review of Systems: As Per HPI Constitutional: Denies: fever, chills Eyes: Denies: vision change ENT ED: Denies: congestion Cardiovascular: Denies: chest pain, palpitations Respiratory: Denies: cough, dyspnea, wheezes Gastrointestinal: Reports: abdominal pain. Denies: nausea, vomiting, diarrhea Genitourinary: Denies: urgency, dysuria Musculoskeletal: Denies: back pain Integumentary: Denies: rash Neurological: Denies: headache Psychiatric: Reports: anxiety Endocrine: Denies: fatigue Abdominal Pain PMH - Past Medical History Medical history: Reports: asthma, cancer, diabetes, hyperlipidemia, hypertension , kidney stones, myocardial infarction Female Surgical History: Reports: angioplasty/stent Psychiatric history: Reports: anxiety, depression, PTSD - Social History Smoking status: Light tobacco smoker Alcohol use: Reports: none Drug use: Reports: none Physical Exam Vital Signs Temperature 97.4 F L 04/12/17 14:57 Pulse Rate 95 04/12/17 14:57 Respiratory Rate 18 04/12/17 14:57 Blood Pressure 129/74 04/12/17 14:57 O2 Sat by Pulse Oximetry 100 04/12/17 14:57 Temperature 97.4 F L 04/12/17 14:57 Pulse Rate 95 04/12/17 14:57 Respiratory Rate 18 04/12/17 14:57 Blood Pressure 129/74 04/12/17 14:57 O2 Sat by Pulse Oximetry 100 04/12/17 14:57 Oxygen Delivery Oxygen Delivery Room Air 56-year-old female who is alert and oriented 3 and in no acute distress at this time. Patient is nontoxic-appearing. Patient has normal vital signs - General Limitations: no limitations General appearance: alert, in no apparent distress - Head Head exam: atraumatic, normocephalic, normal inspection - Eye Eye exam: Present: normal appearance, PERRL, EOMI - ENT ENT exam: normal exam, normal oropharynx, mucous membranes moist - Neck Neck exam: Present: normal inspection, full ROM, trachea midline - Chest Chest inspection: Present: normal inspection, symmetric chest wall rise - Respiratory Respiratory exam: Present: normal lung sounds bilaterally. Absent: respiratory distress, wheezes - Cardiovascular Cardiovascular exam: Present: regular rate, normal rhythm, normal heart sounds - Abdominal Exam Abdominal exam: Present: soft, tenderness (Around ileostomy only: Ileostomy site erythematous and looks like a diaper rash. No purulence no satellite lesions) - Extremities Exam Extremities exam: Present: normal inspection, full ROM, normal capillary refill. Absent: tenderness, pedal edema - Back Exam Back exam: Present: normal inspection, full ROM. Absent: tenderness, CVA tenderness (R), CVA tenderness (L) - Neurological Exam Neurological exam: Present: alert, oriented X3 - Skin Skin exam: Present: warm, dry, intact, normal color. Absent: rash Course Vital Signs Temperature 97.4 F L 04/12/17 14:57 Pulse Rate 95 04/12/17 14:57 Respiratory Rate 18 04/12/17 14:57 Blood Pressure 129/74 04/12/17 14:57 O2 Sat by Pulse Oximetry 100 04/12/17 14:57 Temperature 97.8 F 04/12/17 20:46 Pulse Rate 91 04/12/17 20:02 Respiratory Rate 16 04/12/17 20:46 Blood Pressure 142/62 04/12/17 20:46 O2 Sat by Pulse Oximetry 100 04/12/17 20:02 Oxygen Delivery Oxygen Delivery Room Air Abdominal Pain - MDM Narrative Medical decision making narrative: Local skin irritation around ileostomy. Site very tender to palpation. Possible local cellulitis. Patient has no problems producing stool through the ileostomy. Stool greenish yellowish color. Soft but not liquid. L.E.T was applied to the irritated site to attempt to place a colostomy bag. Patient is currently not tolerating the pain she states pain is 10 out of 10 again. Start 1 L of IV normal saline and [address] Shaikh of Gen. surgery who is on-call for Dr. Franco. He states will come take a look at the patient. Dr. Shaikh evaluated patient's ileostomy site. Patient does not feel safe going home with discomfort of 10 out of [address] pain [address] the site[address] Dr. Shaikh's recommended admission and they will see the patient once she is admitted to medicine. Patient understands and agrees to treatment plan for admission - Lab Data Result diagrams: 04/12/17 19:16 04/12/17 18:52 Lab Results 04/12/17 04/12/17 04/12/17 Range/Units 18:52 19:16 19:16 WBC 6.3 (4.3-11.1) K/mcL RBC 3.12 L (3.82-4.97) M/mcL Hgb 9.2 L (11.5-15.4) g/dL Hct 29.1 L (35.3-44.9) % MCV 93.3 (83.0-100.0) fL MCH 29.5 (28.0-33.3) pg MCHC 31.6 (31.6-35.5) g/dL RDW 16.1 H (11.5-14.5) % Plt Count 287 (140-400) K/mcL MPV 11.5 (9.4-12.4) fL Immature Gran % 0.5 (0-4) % Seg Neutrophils % 76.1 % Lymphocytes % 11.7 % Monocytes % 8.5 % Eosinophils % 2.9 % Basophils % 0.3 % Neutrophils # 4.8 (1.6-8.9) K/mcL Lymphocytes # 0.7 (0.6-4.6) K/mcL Monocytes # 0.5 (0.0-1.3) K/mcL Eosinophils # 0.2 (0.0-0.6) K/mcL Basophils # 0.0 (0.0-0.2) K/mcL Sodium 141 (136-145) mEq/L Potassium 4.3 (3.5-4.5) mEq/L Chloride 109 (98-109) mEq/L Carbon Dioxide 20 (19-29) mEq/L BUN 19 (7-20) mg/dL Creatinine 0.82 (0.57-1.11) mg/dL Est GFR ( Amer) > 60 (> 60) Est GFR (Non-Af Amer) > 60 (> 60) BUN/Creatinine Ratio 23 (6-26) Glucose 207 H (70-99) mg/dL Calculated Osmolality 300 (280-300) Lactic Acid 1.7 (0.5-2.2) mmol/L Calcium 9.2 (8.6-10.8) mg/dL Attestation Statement - Attestation Attestation: I examined this patient and my medical decision-making was reviewed with the Resident Physician. I agree with the documented findings, disposition and treatment plan as described except to the extent set forth below. 56-year-old female presents to [facility] because of abdominal pain. Last month she underwent colectomy with placement of ileostomy. She has had increasing pain around the ileostomy site. No diffuse abdominal pain. No fevers. No vomiting. Patient is well-appearing and interactive. Abdomen with moderate tenderness erythema around the ileostomy site. No palpable fluctuance. No lymphangitis. Bowel sounds are normal throughout. Chest is clear to auscultation bilaterally. Extremities warm and dry. Patient was evaluated in the emergency department by general surgery and patient will be admitted for pain control and further ileostomy care
[2017-04-12] MEDS ORDERED: *HR* FentaNYL (PF) 100 MCG/2 ML VIAL IVP ONE ×2 (17:51→18:29)
[2017-04-12] MEDS ORDERED: 0.9 % Sodium Chloride 1,000 ML IVC ONE (17:51)
[2017-04-12] MEDS ORDERED: *HR* FentaNYL (PF) 100 MCG/2 ML VIAL ONE (18:30)
[2017-04-12 19:23] LABS: BUN/Creatinine Ratio 23 (6-26); Blood Urea Nitrogen 19 mg/dL (7-20); Calcium 9.2 mg/dL (8.6-10.8); Carbon Dioxide 20 mEq/L (19-29); Chloride 109 mEq/L (98-109); Glucose 207 mg/dL (70-99); Osmolality,Calculated 300 (280-300); Potassium 4.3 mEq/L (3.5-4.5); Sodium 141 mEq/L (136-145); eGFR For African Americans > 60 (> 60); eGFR For Non-African Americans > 60 (> 60)
[2017-04-12 19:26] LABS: Basophils % 0.3 %; Eosinophils # 0.2 K/mcL (0.0-0.6); Eosinophils % 2.9 %; Hematocrit 29.1 % (35.3-44.9); Hemoglobin 9.2 g/dL (11.5-15.4); Immature Granulocytes % 0.5 % (0-4); Lymphocytes # 0.7 K/mcL (0.6-4.6); Lymphocytes % 11.7 %; Mean Corpuscular HGB Conc 31.6 g/dL (31.6-35.5); Mean Corpuscular Hemoglobin 29.5 pg (28.0-33.3); Mean Corpuscular Volume 93.3 fL (83.0-100.0); Mean Platelet Volume 11.5 fL (9.4-12.4); Monocytes # 0.5 K/mcL (0.0-1.3); Monocytes % 8.5 %; Neutrophils # 4.8 K/mcL (1.6-8.9); Platelet Count 287 K/mcL (140-400); Red Blood Count 3.12 M/mcL (3.82-4.97); Red Cell Distribution Width 16.1 % (11.5-14.5); Segmented Neutrophils % 76.1 %
[2017-04-12] MEDS ORDERED: Dextrose Gel 15 GM PO PRN ×2 (22:50)
[2017-04-12] MEDS ORDERED: *HR* Dextrose 50 % in Water (Syg) 50 ML SYRINGE IVP PRN (22:50)
[2017-04-12] MEDS ORDERED: D5% in Water 1,000 ML IVC PRN (22:50)
[2017-04-12] MEDS ORDERED: Mag Hydrox/Al Hydrox/Simeth 30 ML UDC PO PRN (22:51)
[2017-04-12] MEDS ORDERED: Naloxone 0.4 MG/ML INJ IVP PRN (22:51)
[2017-04-12] MEDS ORDERED: *HR* HYDROcodone/Acet 5/325 mg TABLET PO PRN (22:51)
[2017-04-12] MEDS ORDERED: Acetaminophen 325 MG TABLET PO PRN (22:51)
[2017-04-12] MEDS ORDERED: Ondansetron 4 MG/2 ML VIAL IVP PRN (22:51)
[2017-04-12] MEDS ORDERED: Insulin LISPRO 300 UNITS/3 ML VIAL SQ SCH (23:00)
[2017-04-12] MEDS ORDERED: Gabapentin 300 MG CAPSULE PO SCH (23:00)
--- NOTE | 2017-04-12 23:01 | Internal Med History&Physical ---
Date of Encounter: 04/13/17 Time of Encounter: 22:59 Assessment and Plan (1) Abdominal wall cellulitis Current visit: Yes Status: Acute Abdominal wall redness could be due to just irritation of ileostomy versus possible cellulitis to less likely. At this time antibiotic is started but need to be watched tomorrow and see if there is any need for continued antibiotics (2) Rectal cancer Current visit: No Status: Acute History of rectal cancer status post ileostomy. (3) Diabetes Current visit: Yes Status: Acute Accu-Chek 4 times a day with sliding scale coverage Qualifiers: Diabetes mellitus type: type 2 Diabetes mellitus complication status: with other specified complication Diabetes mellitus terminologist insulin use: unspecified terminologist insulin use status Qualified Code(s): E11.69 - Type 2 diabetes mellitus with other specified complication Internal Medicine - H&P: HPI Chief complaint: Abdominal wall cellulitis Admitted From: Home Plans for Post Hospital Care: Home History of present illness: Patient seen on April 12, Ms. Mckeon is a 56 year old female past medical history significant for asthma, colon cancer, diabetes, hyperlipidemia, hypertension, kidney stones, myocardial infarction status post PTCA, and PTSD. Patient noted some abdominal wall redness near her ostomy.. She has a ileostomy. As she was cleaning it she notices increased pain, redness and got panic called EMT for the concern that this may be infected. She was brought to the ER where abdominal wall redness noted and antibiotic will be started. Dr. Shaikh was consulted who came to ER saw her and advised to admit her with antibiotics. No fever or leukocytosis or chills or abnormal blood pressure headache neck pain chest pain nausea vomiting diarrhea dysuria urgency frequency or hematuria but is a hematemesis melena or any other symptoms. Past Med Surg Social Fam HX - Past Medical History Medical history: asthma, cancer, diabetes, hyperlipidemia, hypertension, kidney stones, myocardial infarction Psychiatric history: anxiety, depression, PTSD - Past Surgical History Surgical History: cholecystectomy, other - Social History Smoking Status: Light tobacco smoker Smokeless Tobacco Status: No Alcohol use: none Drug use: none - Family History Sister Hx Family Endocrine Disorder: Yes (DIABETES MELLITUS.) Internal Medicine - H&P: Meds Aspirin 81 mg PO DAILY 10/22/16 [History] Cholecalciferol (D-3) [Vitamin D] 1,000 unit PO DAILY 10/22/16 [History] Clopidogrel [Plavix] 75 mg PO DAILY 10/22/16 [History] Duloxetine HCl [Cymbalta] 120 mg PO DAILY 10/22/16 [History] Gabapentin [Neurontin] 600 mg PO HS 10/22/16 [History] Insulin Glargine,Hum.rec.anlog [Lantus Solostar] 40 unit SQ HS 10/22/16 [History ] Losartan Potassium [Cozaar] 50 mg PO DAILY 10/22/16 [History] Metformin HCl [Metformin HCl ER] 1,000 mg PO BID 10/22/16 [History] Simvastatin [Zocor] 40 mg PO HS 10/22/16 [History] Exenatide [Byetta] 5 mcg SQ BID 01/22/17 [History] Nut.tx.impaired Digest Fxn [Ensure Clear] 1 bottle PO BID 04/12/17 [History] 3 Allergy/AdvReac Type Severity Reaction Status Date / Time diphenhydramine Allergy Itching Verified 03/12/17 06:26 [From Benadryl] All Systems PM: A 10-system review of systems was performed and is negative for pertinent findings except as documented above in the HPI. - Constitutional Constitutional: no chills, no fever(s), no night sweats - EENT Eyes: no change in vision, no discharge, no pain, no photophobia Ears: no ear discharge, no ear pain, no tinnitus Nose, mouth and throat: no dysphagia, no nasal discharge, no neck pain, no sore throat - Cardiovascular Cardiovascular ROS IM: no chest pain, no diaphoresis, no dyspnea, no lightheadedness, no palpitations, no syncope - Respiratory Respiratory: no cough, no dyspnea, no wheezing, no excessive phlegm production - Gastrointestinal Gastrointestinal: no abdominal pain, no diarrhea, no hematemesis, no hematochezia, no melena, no nausea, no vomiting - Genitourinary Genitourinary: no change in urinary stream, no dysuria, no flank pain, no hematuria - Musculoskeletal Musculoskeletal ROS IM: no numbness, no tingling - Integumentary Integumentary IM: no rash, no unusual bruising - Neurological Neurological ROS: no confusion, no convulsions, no focal weakness, no numbness, no tingling, no tremor(s) - Hematologic/Lymphatic Hematologic/Lymphatic: no easy bruising - Constitutional Vitals: Temp Pulse Resp BP Pulse Ox 98.2 F 97 16 127/75 97 04/12/17 22:46 04/12/17 22:46 04/12/17 22:46 04/12/17 22:46 04/12/17 22:46 General appearance: Present: A&O X 3, no acute distress, answers questions appropriately - Head Head exam: Present: atraumatic, normocephalic - Eye Eye exam: Present: PERRL, conjuntiva pink, sclera anicteric Pupils: Present: PERRL - Neck Neck exam general surgery: Present: supple, trachea midline. Absent: lymphadenopathy - Respiratory Respiratory exam: Present: CTAB. Absent: accessory muscle use, rales, rhonchi, wheezes - Cardiovascular Cardiovascular exam: Present: RRR, +S1, +S2. Absent: diastolic murmur, gallop, rubs, systolic murmur - GI/Abdominal GI/Abdominal exam: Present: normal bowel sounds, soft, no peritoneal signs. Absent: distended, tenderness Additional comments: Near ileostomy bag surrounding wall has some erythema which could be due to irritation due to ileostomy itself. I did not find any ulceration called discharge. - Extremities Exam Extremities exam: Present: warm, radial pulses palpable and symmetrical. Absent : calf tenderness, cyanotic, pedal edema - Neurological Exam Neurological exam: Present: CN II-XII intact, oriented X3, no focal deficits. Absent: pronater drift, facial droop, speech deficit - Skin Skin exam: Present: dry, intact Internal Med - H&P Results - Labs CBC & Chem 7: 04/12/17 19:16 04/12/17 18:52
[2017-04-12] MEDS: Insulin LISPRO 300 UNITS/3 ML VIAL SQ SCH (23:11)
[2017-04-13] MEDS: Piperacillin/Tazobactam 3.375 GM/200 ML BAG IVPB SCH ×2 (00:07→08:35)
[2017-04-13 01:23] LABS: Hemoglobin A1C 5.9 %
[2017-04-13 05:21] LABS: Hematocrit 28.9 % (35.3-44.9); Hemoglobin 9.3 g/dL (11.5-15.4); Mean Corpuscular HGB Conc 32.2 g/dL (31.6-35.5); Mean Corpuscular Hemoglobin 29.8 pg (28.0-33.3); Mean Corpuscular Volume 92.6 fL (83.0-100.0); Mean Platelet Volume 12.1 fL (9.4-12.4); Platelet Count 276 K/mcL (140-400); Red Blood Count 3.12 M/mcL (3.82-4.97); Red Cell Distribution Width 16.2 % (11.5-14.5)
[2017-04-13 05:52] LABS: Alanine Aminotransferase 12 Units/L (0-55); Albumin 2.7 g/dL (3.5-5.0); Albumin/Globulin Ratio 0.6 (1.1-2.2); Alkaline Phosphatase 83 Units/L (38-126); Aspartate Amino Transferase 10 Units/L (5-34); BUN/Creatinine Ratio 23 (6-26); Bilirubin,Total 0.5 mg/dL (0.2-1.2); Blood Urea Nitrogen 18 mg/dL (7-20); Calcium 8.8 mg/dL (8.6-10.8); Carbon Dioxide 20 mEq/L (19-29); Chloride 109 mEq/L (98-109); Globulin 4.3 g/dL (2.4-3.5); Glucose 221 mg/dL (70-99); Osmolality,Calculated 295 (280-300); Potassium 4.3 mEq/L (3.5-4.5); Sodium 138 mEq/L (136-145); eGFR For African Americans > 60 (> 60); eGFR For Non-African Americans > 60 (> 60)
[2017-04-13] MEDS: Insulin LISPRO 300 UNITS/3 ML VIAL SQ SCH ×2 (08:36→12:04)
[2017-04-13] MEDS ORDERED: Cholecalciferol (D-3) 1,000 UNIT TABLET PO SCH (09:00)
[2017-04-13] MEDS ORDERED: Aspirin 81 MG TAB.CHEW PO SCH (09:00)
--- NOTE | 2017-04-13 10:42 | General Surgery Consult Note ---
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 Akers on 02/16 Pathology reviewed during previous visit F/U with oncology as scheduled outpatient History of Present Illness Consult date: 04/13/17 Reason for consult: other (pain around stoma site) Requesting physician: Lobo Hyde History of present illness: Ms. Mckeon is a 56 year old female with a history of rectal cancer who is recently s/p Robotic rectal resection with diverting loop ileostomy on 03/12/[address] Akers. She did experience a prolonged post-operative ileus and required multiple doses of neostigmine for bowel stimulation. She ultimately improved with these measures. She was discharged on 03/30/17 and was doing well at that time. She did follow-up as an outpatient last week and was continuing to do well. She states that she reported to the ED last evening with complaints of severe pain around her stoma. She states that she has been unable to maintain a seal around the stoma site and that it is red and extremely irritated. She states that the pain is constant. She has a normal appetite. Denies any nausea/vomiting. She is having liquid stool from her ileostomy without bleeding. Denies any fevers/chills. We have been asked to see and evaluate the patient for pain around her stoma site. Past Med Surg Social Fam HX - Past Medical History Medical history: asthma, cancer (rectal, vulvar cancer), coronary artery disease , diabetes, hyperlipidemia, hypertension, kidney stones, myocardial infarction ( 2004- stent placement), other (plaque psoriasis, Vitamin D deficiency, GI ulcers , bronchitis, diabetic neuropathy) Psychiatric history: anxiety, depression, PTSD, other (Tourette syndrome) - Past Surgical History Surgical History: angioplasty/stent (2004, 2005), cholecystectomy, other ( Robotic rectal resection with diverting loop ileostomy 03/12/17, Diagnostic laparoscopy 03/19/17; Vulvar cancer 1992; Colonoscopy 10/2016) - Social History Smoking Status: Light tobacco smoker Packs per day: 0.5 Smokeless Tobacco Status: No Alcohol use: none Drug use: none Current living situation: Home - Independent, With Family Activity Level: Independent ambulation - Family History Sister Living Status: Still Living Hx Family Cardiac Disorders: Yes (HTN) Hx Family Endocrine Disorder: Yes (DIABETES MELLITUS.) Father Living Status: Age at : 68 Hx Family Cancer: Yes (pancreatic cancer) Mother Living Status: Age at : 57 Cause of : Complications of Diabetes Hx Family Cardiac Disorders: Yes Hx Family Endocrine Disorder: Yes (Diabetes Mellitus) Medications and Allergies Aspirin 81 mg PO DAILY 10/22/16 [History] Cholecalciferol (D-3) [Vitamin D] 1,000 unit PO DAILY 10/22/16 [History] Clopidogrel [Plavix] 75 mg PO DAILY 10/22/16 [History] Duloxetine HCl [Cymbalta] 120 mg PO DAILY 10/22/16 [History] Gabapentin [Neurontin] 600 mg PO HS 10/22/16 [History] Insulin Glargine,Hum.rec.anlog [Lantus Solostar] 40 unit SQ HS 10/22/16 [History ] Losartan Potassium [Cozaar] 50 mg PO DAILY 10/22/16 [History] Metformin HCl [Metformin HCl ER] 1,000 mg PO BID 10/22/16 [History] Simvastatin [Zocor] 40 mg PO HS 10/22/16 [History] Exenatide [Byetta] 5 mcg SQ BID 01/22/17 [History] Nut.tx.impaired Digest Fxn [Ensure Clear] 1 bottle PO BID 04/12/17 [History] 3 Allergy/AdvReac Type Severity Reaction Status Date / Time diphenhydramine Allergy Itching Verified 03/12/17 06:26 [From Benadryl] Review of Systems All systems PM: reviewed and no additional remarkable complaints except as stated (in the HPI) All systems PM: A 10-system review of systems was performed and is negative for pertinent findings except as documented above in the HPI. General Surgery Exam Initial Vital Signs Temp Pulse Resp BP Pulse Ox 97.4 F L 95 18 129/74 100 04/12/17 14:57 12/11/17 14:57 04/12/17 14:57 04/12/17 14:57 04/12/17 14:57 - General physical appearance well developed, well nourished, no distress - Eyes normal ocular movement - ENT normal mucosa, atraumatic, normocephalic - Neck trachea midline - Respiratory normal expansion, normal respiratory effort, clear to auscultation - Cardiovascular Cardiovascular exam: Present: RRR - Abdomen Abdomen general surgery: Present: bowel sounds present, soft, tender (around ileostomy), wound (ileostomy site with moderate amount of skin breakdown from stool exposure, no signs of infection noted; ileostomy is pink and moist with soft green stool noted) - Incision Incision: Present: clean and dry, intact - Integumentary Integumentary general surgery: Present: warm and dry, other (Moderate amount of skin breakdown noted around stoma site) - Neurologic Present: CN 2-12 grossly intact - Musculoskeletal Present: normal gait, normal posture - Psychiatric Psychiatric general surgery: Present: appropriate, oriented to person, oriented to place, oriented to time, speech is normal, memory intact Exam Initial Vital Signs Temp Pulse Resp BP Pulse Ox 97.4 F L 95 18 129/74 100 04/12/17 14:57 04/12/17 14:57 04/12/17 14:57 04/12/17 14:57 04/12/17 14:57 Results - Labs 04/13/17 03:59 04/13/17 03:59 Abnormal lab results RBC 3.12 M/mcL (3.82-4.97) L 04/13/17 03:59 Hgb 9.3 g/dL (11.5-15.4) L 04/13/17 03:59 Hct 28.9 % (35.3-44.9) L 04/13/17 03:59 RDW 16.2 % (11.5-14.5) H 04/13/17 03:59 Glucose 221 mg/dL (70-99) H 04/13/17 03:59 POC Glucose 204 (58-89) H 04/13/17 07:28 Hemoglobin A1c 5.9 % (-5.6) H 04/12/17 23:18 Albumin 2.7 g/dL (3.5-5.0) L 04/13/17 03:59 Globulin 4.3 g/dL (2.4-3.5) H 04/13/17 03:59 Albumin/Globulin Ratio 0.6 (1.1-2.2) L 04/13/17 03:59 Diabetes panel 04/12/17 04/13/17 Range/Units 23:18 03:59 Sodium 138 (136-145) mEq/L Potassium 4.3 (3.5-4.5) mEq/L Chloride 109 (98-109) mEq/L Carbon Dioxide 20 (19-29) mEq/L BUN 18 (7-20) mg/dL Creatinine 0.80 (0.57-1.11) mg/dL Glucose 221 H (70-99) mg/dL Hemoglobin A1c 5.9 H ( - 5.6) % Calcium 8.8 (8.6-10.8) mg/dL AST 10 (5-34) Units/L ALT 12 (0-55) Units/L Alkaline Phosphatase 83 (38-126) Units/L Albumin 2.7 L (3.5-5.0) g/dL Calcium panel 04/13/17 Range/Units 03:59 Calcium 8.8 (8.6-10.8) mg/dL Albumin 2.7 L (3.5-5.0) g/dL Pituitary panel 04/13/17 Range/Units 03:59 Sodium 138 (136-145) mEq/L Potassium 4.3 (3.5-4.5) mEq/L Chloride 109 (98-109) mEq/L Carbon Dioxide 20 (19-29) mEq/L BUN 18 (7-20) mg/dL Creatinine 0.80 (0.57-1.11) mg/dL Glucose 221 H (70-99) mg/dL Calcium 8.8 (8.6-10.8) mg/dL Adrenal panel 04/13/17 Range/Units 03:59 Sodium 138 (136-145) mEq/L Potassium 4.3 (3.5-4.5) mEq/L Chloride 109 (98-109) mEq/L Carbon Dioxide 20 (19-29) mEq/L BUN 18 (7-20) mg/dL Creatinine 0.80 (0.57-1.11) mg/dL Glucose 221 H (70-99) mg/dL Calcium 8.8 (8.6-10.8) mg/dL Total Bilirubin 0.5 (0.2-1.2) mg/dL AST 10 (5-34) Units/L ALT 12 (0-55) Units/L Alkaline Phosphatase 83 (38-126) Units/L Albumin 2.7 L (3.5-5.0) g/dL All other labs normal. Consult Discharge Plan - Plan Additional Instructions: Ileostomy care: 1. Cleanse around stoma with soap and water and pat dry 2. Apply [place] skin barrier (Rx given) 3. Apply Mastisol skin prep 4. Apply convex insert with a small bead of paste around the edge (cut down to size- family instructed) 5. Apply ostomy appliance to the convex insert with a small bed of paste around the edge (cut the opening to oval size to match opening of the convex insert) 6. Apply stoma powder to cover around the edge of the stoma to seal any gaps 7. Place ostomy bag and then secure ostomy belt to be worn at all times Change appliance every 5-7 days and as needed if leaking Call the surgical office if continued difficulty maintaining a seal around the stoma ([phone]) and schedule follow-up with Jennifer Patel CNP Referrals: Heaven Cho DO [Primary Care Provider] - Duong Akers DO [Partnered Physician] - 05/04/17 10:00 am (Discuss ileostomy revearsal) - Attending Attestation For this encounter, I have reviewed the [employer] KNITTER or PA documentation, treatment plan, and medical decision making; and I have had face to face time with this patient.
--- NOTE | 2017-04-13 11:22 | Discharge Summary ---
Date of Encounter: 04/13/17 Time of Encounter: 11:19 - Discharge Diagnosis (1) Ileostomy care Priority: Primary Status: Acute Comments: s/p diverting loop ileostomy on 03/12/[address] Akers. Presented with concern for possible stoma cellulitis. Afebrile, no elevated WBC. Evaluated by General Surgery who did not feel stoma site was infected but rather denuded skin secondary to loose stool and inadequate appliance seal. Patient provided with new appliance along with extensive ostomy site teaching per General Surgery. Follow-up with General Surgery as needed (2) Rectal cancer Priority: Primary Status: Acute Comments: s/p Robotic rectal resection with diverting loop ileostomy with Dr. Akers on 02/16. Follow-up with Oncology as scheduled outpatient - Discharge Medications Home Medications: Aspirin 81 mg PO DAILY 10/22/16 [History] Cholecalciferol (D-3) [Vitamin D] 1,000 unit PO DAILY 10/22/16 [History] Clopidogrel [Plavix] 75 mg PO DAILY 10/22/16 [History] Duloxetine HCl [Cymbalta] 120 mg PO DAILY 10/22/16 [History] Gabapentin [Neurontin] 600 mg PO HS 10/22/16 [History] Insulin Glargine,Hum.rec.anlog [Lantus Solostar] 40 unit SQ HS 10/22/16 [History ] Losartan Potassium [Cozaar] 50 mg PO DAILY 10/22/16 [History] Metformin HCl [Metformin HCl ER] 1,000 mg PO BID 10/22/16 [History] Simvastatin [Zocor] 40 mg PO HS 10/22/16 [History] Exenatide [Byetta] 5 mcg SQ BID 01/22/17 [History] Nut.tx.impaired Digest Fxn [Ensure Clear] 1 bottle PO BID 04/12/17 [History] Allergies/Adverse Reactions: 3 Allergy/AdvReac Type Severity Reaction Status Date / Time diphenhydramine Allergy Itching Verified 03/12/17 06:26 [From Benadryl] Date of admission: 04/12/17 20:03 Primary care physician: Heaven Cho DO Consults: 04/12/17 22:53 Consult to Physician [CONS] Routine Consulting Provider: Armando Holden Reason for Consult: Abdominal wall cellulitis, ER has already notified Time Notified: 22:54 Call Completed: Yes 04/12/17 22:56 Consult to Wound Care [CONS] Routine Reason for Consult: Abdominal wall wound Time Notified: 22:56 Call Completed: Yes 04/13/17 11:16 Consult to J[employer] Pouncing Machine Operator [CONS] Routine Reason for SW Consult: readmit Discharging clinician: Nicole Johnson Anticipated date of discharge: 04/13/17 - Patient Status Disposition: Home, Self-Care Condition: Good Functional capacity at discharge: independent ambulation Overall status at discharge: patient is back to baseline - Discharge Instructions Instructions: Ileostomy Care (DC) Follow Up With: Duong Akers DO [Partnered Physician] - 05/04/17 10:00 am (Discuss ileostomy revearsal) Heaven Cho DO [Primary Care Provider] - Additional Instructions: Ileostomy care: 1. Cleanse around stoma with soap and water and pat dry 2. Apply [place] skin barrier (Rx given) 3. Apply Mastisol skin prep 4. Apply convex insert with a small bead of paste around the edge (cut down to size- family instructed) 5. Apply ostomy appliance to the convex insert with a small bed of paste around the edge (cut the opening to oval size to match opening of the convex insert) 6. Apply stoma powder to cover around the edge of the stoma to seal any gaps 7. Place ostomy bag and then secure ostomy belt to be worn at all times Change appliance every 5-7 days and as needed if leaking Call the surgical office if continued difficulty maintaining a seal around the stoma ([phone]) and schedule follow-up with Jennifer Patel CNP - Diet and Activity Activity: increase activity as tolerated Diet: advance to your usual diet Interval History: Seen and examined at bedside. Patient is due to meet, information obtained from chart review and patient report. Patient says she feels better and is ready for discharge. Patient reports increased pain to stoma site and she was concerned that area was infected so she came to the hospital. She was seen by general surgery earlier today who did not feel site was infected rather denuded skin secondary to loose stool and poor appliance seal. Patient and educated at bedside on ostomy care. Hospital course: See assessment and plan for hospital course - Time Spent with Patient Total time spent providing and/or coordinating discharge services: - Constitutional Vitals: Temp Pulse Resp BP Pulse Ox 98.5 F 91 16 124/71 96 04/13/17 07:33 04/13/17 07:33 04/13/17 07:33 04/13/17 07:33 04/13/17 08:46 General appearance: Present: A&O X 3, no acute distress, answers questions appropriately - Head Head exam: Present: atraumatic, normocephalic - Eye Eye exam: Present: PERRL, conjuntiva pink, sclera anicteric Pupils: Present: PERRL - Neck Neck exam general surgery: Present: supple, trachea midline. Absent: lymphadenopathy - Respiratory Respiratory exam: Present: CTAB. Absent: accessory muscle use, rales, rhonchi, wheezes - Cardiovascular Cardiovascular exam: Present: RRR, +S1, +S2. Absent: diastolic murmur, gallop, rubs, systolic murmur - GI/Abdominal GI/Abdominal exam: Present: normal bowel sounds, soft, no peritoneal signs. Absent: distended, tenderness Additional comments: RLQ ostomy with + stool and appliance intact - Extremities Exam Extremities exam: Present: warm, radial pulses palpable and symmetrical. Absent : calf tenderness, cyanotic, pedal edema - Neurological Exam Neurological exam: Present: CN II-XII intact, oriented X3, no focal deficits. Absent: pronater drift, facial droop, speech deficit - Skin Skin exam: Present: dry, intact
[2017-04-13 11:48] VITALS: BP 118/71
== END 2017-04-13 14:02 | disposition home or self-care (01) ==
LOC: EMEROO 14:54 → 3BNU 14:54
PROVIDERS: ADMIT Family Medicine; ATTEND Registered Nurse

== ENCOUNTER 2017-04-27 21:37 | Inpatient (IN) ==
[2017-04-27 22:05] LABS: Basophils % 0.2 %; Eosinophils % 0.1 %; Hematocrit 35.6 % (35.3-44.9); Hemoglobin 11.2 g/dL (11.5-15.4); Immature Granulocytes % 0.7 % (0-4); Lymphocytes # 0.6 K/mcL (0.6-4.6); Lymphocytes % 2.9 %; Mean Corpuscular HGB Conc 31.5 g/dL (31.6-35.5); Mean Corpuscular Hemoglobin 27.8 pg (28.0-33.3); Mean Corpuscular Volume 88.3 fL (83.0-100.0); Mean Platelet Volume 11.9 fL (9.4-12.4); Monocytes # 1.1 K/mcL (0.0-1.3); Monocytes % 5.8 %; Neutrophils # 17.2 K/mcL (1.6-8.9); Platelet Count 366 K/mcL (140-400); Red Blood Count 4.03 M/mcL (3.82-4.97); Red Cell Distribution Width 15.1 % (11.5-14.5); Segmented Neutrophils % 90.3 %
[2017-04-27 22:13] LABS: Albumin/Globulin Ratio 1.1 (1.1-2.2); Bilirubin,Total 0.5 mg/dL (0.3-1.0); Calcium 10.2 mg/dL (8.6-10.3); Globulin 3.5 g/dL (2.4-3.5); Potassium 4.6 mEq/L (3.5-5.1); Total Protein 7.5 g/dL (6.4-8.9)
[2017-04-27] MEDS ORDERED: 0.9 % Sodium Chloride 1,000 ML IVC ONE ×2 (22:13→23:00)
[2017-04-27 22:28] LABS: Thyroid Stimulating Hormone 0.86 mcIU/mL (0.340-5.600)
--- NOTE | 2017-04-27 22:34 | Emergency Department Note ---
Disposition Clinical Impression: TAMAR (acute kidney injury), Dehydration UTI (urinary tract infection) Qualifiers: Urinary tract infection type: site unspecified Hematuria presence: with hematuria Qualified Code(s): N39.0 - Urinary tract infection, site not specified Disposition: Admitted As Inpatient Condition: Fair Referrals: Heaven Cho DO [Primary Care Provider] - Forms: ED Satisfaction Letter Time of Disposition: 00:04 General Adult HPI - General Chief complaint: ED Weakness Stated complaint: generalized weakness Time Seen by Provider: 04/27/17 21:41 Source: patient, EMS Limitations: no limitations Nursing Notes Reviewed: Yes Vital Signs Reviewed: Yes - History of Present Illness HPI Narrative: Patient is a 56-year-old that presents to the emergency department due to not acting right per family. They state that she has been sleeping more than 20 hours a day. And that she has not been eating. Family states that she has not been acting herself probably around 5 PM. She states that she hurts all over. States that she has had a lot of sick contacts recently. Patient states that she just does not feel well. Patient has a history of rectal cancer and has an ileostomy. But is not taking any chemotherapy at this time. Pain Scale: 6 - Related Data Home Medications Medication Instructions Recorded Confirmed Aspirin 81 mg PO DAILY 10/22/16 04/22/17 Cholecalciferol (D-3) [Vitamin D] 1,000 unit PO DAILY 10/22/16 04/22/17 Clopidogrel [Plavix] 75 mg PO DAILY 10/22/16 04/22/17 Duloxetine HCl [Cymbalta] 120 mg PO DAILY 10/22/16 04/22/17 Gabapentin [Neurontin] 600 mg PO HS 10/22/16 04/22/17 Insulin Glargine,Hum.rec.anlog 16 unit SQ HS 10/22/16 04/22/17 [Lantus Solostar] Losartan Potassium [Cozaar] 50 mg PO DAILY 10/22/16 04/22/17 Metformin HCl [Metformin HCl ER] 1,000 mg PO BID 10/22/16 04/22/17 Simvastatin [Zocor] 40 mg PO HS 10/22/16 04/22/17 Nut.tx.impaired Digest Fxn [Ensure 1 bottle PO BID 04/12/17 04/22/17 Clear] Ferrous Sulfate [Iron] 325 mg PO DAILY 04/22/17 04/22/17 Previous Rx's Medication Instructions Recorded Capecitabine [Xeloda] 1,000 mg PO BID #56 tablet 04/22/17 Ondansetron [Zofran] 4 mg PO Q8HR #90 tablet 04/22/17 Prochlorperazine Maleate 10 mg PO Q8HR #90 tablet 04/22/17 [Compazine] Allergies Allergy/AdvReac Type Severity Reaction Status Date / Time diphenhydramine Allergy Itching Verified 04/22/17 10:46 [From Benadryl] All systems ED: reviewed and negative except as stated. Constitutional: Reports: weakness, other (Pain all over) Past Medical History - Past Medical History Medical history: Reports: asthma, cancer, coronary artery disease, diabetes, hyperlipidemia, hypertension, kidney stones, myocardial infarction, other Surgical history: Reports: angioplasty/stent (2004, 2005), cholecystectomy, other (Robotic rectal resection with diverting loop ileostomy 03/12/17, Diagnostic laparoscopy 03/19/17; Vulvar cancer 1992; Colonoscopy 10/2016) Psychiatric history: Reports: anxiety, depression, PTSD, other - Social History Smoking Status: Current every day smoker Smokeless Tobacco Status: No Alcohol use: Reports: none Drug use: Reports: none Physical Exam - General Limitations: no limitations General appearance: alert, in no apparent distress - Head Head exam: atraumatic, normocephalic - Eye Eye exam: Present: normal appearance, EOMI - Neck Neck exam: Present: normal inspection, full ROM, trachea midline - Respiratory Respiratory exam: Present: normal lung sounds bilaterally, wheezes (Mild wheezes bilaterally). Absent: respiratory distress - Cardiovascular Cardiovascular exam: Present: regular rate, normal rhythm, normal heart sounds, +S1, +S2 - Abdominal Exam Abdominal exam: Present: soft, tenderness, normal bowel sounds Abdominal tenderness: Present: suprapubic, moderate - Neurological Exam Neurological exam: Present: oriented X3, CN II-XII intact, other (Patient is sleepy but will open her eyes when talked to) - Expanded Neurological Exam Patient oriented to: Present: person, place, time Cranial nerves: EOM function (II, III, IV, ): Normal, facial sensation (V): Normal, facial palsy (VII): Normal, gag reflex (IX): Normal, spinal accessory function (XI): Normal, tongue deviation (XII): Normal Cerebellar function: finger to nose: Normal, heel to trujillo: Abnormal Left, Abnormal Right (Patient had difficulty following the instruction to perform exam ) Motor strength - LUE: 5/5 Motor strength - RUE: 5/5 Motor strength - LLE: 5/5 Motor strength - RLE: 5/5 Sensory exam upper extremity: light touch: Normal Sensory exam lower extremity: light touch: Normal, Abnormal Right (Patient has a boot on the right leg from a previous injury) Coma Scale Eye Opening: Spontaneous Coma Scale Motor Response: Obeys Commands Coma Scale Verbal Response: Oriented Coma Scale Total: 15 - Psychiatric Psychiatric exam: Present: normal affect, normal mood - Skin Skin exam: Present: warm, dry, intact Course Vital Signs Temperature 99.2 F 04/27/17 21:38 Pulse Rate 122 04/27/17 21:38 Respiratory Rate 16 04/27/17 21:38 Blood Pressure 142/81 04/27/17 21:38 O2 Sat by Pulse Oximetry 99 04/27/17 21:38 Temperature 99.2 F 04/27/17 21:38 Pulse Rate 105 04/27/17 23:35 Respiratory Rate 18 04/27/17 23:35 Blood Pressure 124/75 04/27/17 23:35 O2 Sat by Pulse Oximetry 100 04/27/17 23:35 Oxygen Delivery Oxygen Delivery Room Air Medical Decision Making - MDM Narrative Medical decision making narrative: Due to the patient not so we have ordered a CT of the head, CBC, BMP, lactate, blood cultures, urinalysis, TSH, hepatic panel and influenza swab. Patient appears to have a urinary tract infection. We have placed a modi in this patient. Patient has an elevated white count and an increase in her kidney function labs. Troponin was negative. Influenza was negative. TSH was within normal limits. Lactic acid 1.4. Patient is received 2 L of normal saline fluid due to the patient seeming dry. Chest x-ray showed no acute cardiopulmonary process. The patient will need to be admitted to the hospital for further evaluation and management.I spoke to the hospital and she has accepted the patient to service. The patient will be admitted to the hospital at this time. Family members stated that she has not been able to take her home dose of hydrocodone so we have given her a dose of 7.5 of hydrocodone due to this being the dose that the patient takes at home. Patient was given a gram or Rocephin prior to admission. After reviewing the head CT images there is no evidence of acute bleed. Formal read to follow. The patient will be admitted to the hospital at this time for further evaluation and management. This documentation is done with the assistance of Dragon dictation. Despite efforts to ensure accuracy, there may be inaccuracies in inspector radar and electronics or spelling and typographical errors. I examined this patient and my medical decision-making was reviewed with the Resident Physician. I agree with the documented findings, disposition and treatment plan as described except to the extent set forth below. Patient seen and evaluated on arrival with Dr. Merino and myself, I agree with his evaluation and management plan, surprise care the patient's stay. Patient had a history of rectal cancer. She has a colostomy in place but does not have chemotherapy at this time. Sees Dr. Akers here. Her son said last 24 hours she has been dizzy when she stands she has been dry she has not been eating or drinking not urinating. She has no complaints at this time she says she just feels very sleepy. He says been sleeping for multiple hours in the day. No new changes in her medication. I gave her fluids. As she is tachycardic here and dry. Modi in place to see if she has any urine and if she has a UTI. CT of her head and reassess. She has a walking boot on her right lower extremity due to previous fall with fibular fracture. Son denies any current falls at this time. Chest X-Ray 04/27/17 21:54 IMPRESSION: No acute cardiopulmonary disease. D/ / Dale Bartlett MD / Dale Bartlett MD Interpreting Provider: Dale Bartlett MD 2316 hrs.: She is dry by her electrolytes and her creatinine is elevated. Fluid hydrate her. Wait for her CT of her head then we will admit her. Impressions dehydration, rectal cancer, failure to thrive. 2348 hrs.: Her flu swab is negative for influenza A or B. Still waiting CT of her head. She does have a UTI on her labs and urine. We sent that for culture. She has gotten antibiotics started already. He will go ahead and bring her into the hospital and follow up on her CT. Impression is UTI, generalized weakness, dehydration, - Medical Records Medical records reviewed: Yes I reviewed the patient's medical records. - Lab Data Lab results reviewed: Yes I reviewed the patient's lab results. Result diagrams: 04/27/17 21:44 04/27/17 21:44 Lab Results 04/27/17 04/27/17 04/27/17 Range/Units 21:44 21:44 21:44 WBC 19.1 H (4.3-11.1) K/mcL RBC 4.03 (3.82-4.97) M/mcL Hgb 11.2 L (11.5-15.4) g/dL Hct 35.6 (35.3-44.9) % MCV 88.3 (83.0-100.0) fL MCH 27.8 L (28.0-33.3) pg MCHC 31.5 L (31.6-35.5) g/dL RDW 15.1 H (11.5-14.5) % Plt Count 366 (140-400) K/mcL MPV 11.9 (9.4-12.4) fL Immature Gran % 0.7 (0-4) % Seg Neutrophils % 90.3 % Lymphocytes % 2.9 % Monocytes % 5.8 % Eosinophils % 0.1 % Basophils % 0.2 % Neutrophils # 17.2 H (1.6-8.9) K/mcL Lymphocytes # 0.6 (0.6-4.6) K/mcL Monocytes # 1.1 (0.0-1.3) K/mcL Eosinophils # 0.0 (0.0-0.6) K/mcL Basophils # 0.0 (0.0-0.2) K/mcL Sodium 130 L (136-145) mEq/L Potassium 4.6 (3.5-5.1) mEq/L Chloride 104 (98-107) mEq/L Carbon Dioxide 14 L (23-29) mEq/L BUN 38 H (6-20) mg/dL Creatinine 1.77 H (0.60-1.20) mg/dL Est GFR ( Amer) 36 L (> 60) Est GFR (Non-Af Amer) 30 L (> 60) BUN/Creatinine Ratio 21 (6-26) Glucose 272 H (70-105) mg/dL Calculated Osmolality 289 (280-300) Lactic Acid 1.4 (0.5-2.2) mmol/L Calcium 10.2 (8.6-10.3) mg/dL Phosphorus 4.0 (2.7-4.5) mg/dL Magnesium 1.4 L (1.6-2.6) mg/dL Total Bilirubin 0.5 (0.3-1.0) mg/dL Direct Bilirubin 0.1 (0.0-0.2) mg/dL AST 8 L (13-39) Units/L ALT 9 (7-52) Units/L Alkaline Phosphatase 93 (34-104) Units/L Troponin I (< 0.04) ng/mL Serum Total Protein 7.5 (6.4-8.9) g/dL Albumin 4.0 (3.5-5.7) g/dL Globulin 3.5 (2.4-3.5) g/dL Albumin/Globulin Ratio 1.1 (1.1-2.2) TSH 0.860 (0.340-5.600) mcIU/mL Urine Color (Yellow) Urine Clarity (Clear) Urine pH (5.0-8.0) pH Units Ur Specific Stendal (1.010-1.025) Urine Protein (Neg-Trace) mg/dL Urine Glucose (UA) (Normal) mg/dL Urine Ketones (Negative) mg/dL Urine Blood (Negative) Urine Nitrite (Negative) Urine Bilirubin (Negative) Urine Urobilinogen (Normal) mg/dL Ur Leukocyte Esterase (Negative) Urine Microscopic RBC (0-3) per hpf Urine Microscopic WBC (0-3) per hpf Ur Squamous Epith Cells (None-Few) per lpf Urine Bacteria (None-Few) per hpf Hyaline Casts (None-Few) per lpf Ur Culture Indicated? (NO) 04/27/17 04/27/17 Range/Units 21:44 23:18 WBC (4.3-11.1) K/mcL RBC (3.82-4.97) M/mcL Hgb (11.5-15.4) g/dL Hct (35.3-44.9) % MCV (83.0-100.0) fL MCH (28.0-33.3) pg MCHC (31.6-35.5) g/dL RDW (11.5-14.5) % Plt Count (140-400) K/mcL MPV (9.4-12.4) fL Immature Gran % (0-4) % Seg Neutrophils % % Lymphocytes % % Monocytes % % Eosinophils % % Basophils % % Neutrophils # (1.6-8.9) K/mcL Lymphocytes # (0.6-4.6) K/mcL Monocytes # (0.0-1.3) K/mcL Eosinophils # (0.0-0.6) K/mcL Basophils # (0.0-0.2) K/mcL Sodium (136-145) mEq/L Potassium (3.5-5.1) mEq/L Chloride (98-107) mEq/L Carbon Dioxide (23-29) mEq/L BUN (6-20) mg/dL Creatinine (0.60-1.20) mg/dL Est GFR ( Amer) (> 60) Est GFR (Non-Af Amer) (> 60) BUN/Creatinine Ratio (6-26) Glucose (70-105) mg/dL Calculated Osmolality (280-300) Lactic Acid (0.5-2.2) mmol/L Calcium (8.6-10.3) mg/dL Phosphorus (2.7-4.5) mg/dL Magnesium (1.6-2.6) mg/dL Total Bilirubin (0.3-1.0) mg/dL Direct Bilirubin (0.0-0.2) mg/dL AST (13-39) Units/L ALT (7-52) Units/L Alkaline Phosphatase (34-104) Units/L Troponin I < 0.03 (< 0.04) ng/mL Serum Total Protein (6.4-8.9) g/dL Albumin (3.5-5.7) g/dL Globulin (2.4-3.5) g/dL Albumin/Globulin Ratio (1.1-2.2) TSH (0.340-5.600) mcIU/mL Urine Color Yellow (Yellow) Urine Clarity Turbid A (Clear) Urine pH 5.5 (5.0-8.0) pH Units Ur Specific Stendal 1.026 H (1.010-1.025) Urine Protein 100 H (Neg-Trace) mg/dL Urine Glucose (UA) Normal (Normal) mg/dL Urine Ketones Negative (Negative) mg/dL Urine Blood Moderate H (Negative) Urine Nitrite Negative (Negative) Urine Bilirubin Negative (Negative) Urine Urobilinogen Normal (Normal) mg/dL Ur Leukocyte Esterase Large H (Negative) Urine Microscopic RBC 5-15 H (0-3) per hpf Urine Microscopic WBC TNTC H (0-3) per hpf Ur Squamous Epith Cells Many H (None-Few) per lpf Urine Bacteria Many H (None-Few) per hpf Hyaline Casts None Seen (None-Few) per lpf Ur Culture Indicated? NO (NO) - Radiology Data Radiology results reviewed: Yes I reviewed the patient's radiology results. Chest X-Ray 04/27/17 21:54 IMPRESSION: No acute cardiopulmonary disease. D/ / Dale Bartlett MD / Dale Bartlett MD Interpreting Provider: Dale Bartlett MD - EKG Data EKG #1 EKG attestation: Yes I reviewed and interpreted this EKG. EKG results narrative: Patient's EKG shows a sinus tachycardia at a rate of 118 bpm, CO interval of 143 , QRS duration of 99, QTC of 421 with a normal axis. There is no STEMI noted on EKG. This was compared to previous EKG on 03/18/17 that showed a sinus rhythm at a rate of 80 bpm.
[2017-04-27 23:07] LABS: Bilirubin,Direct 0.1 mg/dL (0.0-0.2); Magnesium 1.4 mg/dL (1.6-2.6)
[2017-04-27 23:32] LABS: Bilirubin,Urine Negative (Negative); Blood,Urine Moderate (Negative); Clarity,Urine Turbid (Clear); Color,Urine Yellow (Yellow); Glucose,Urine (UA) Normal (Normal); Ketones,Urine Negative (Negative); Leukocyte Esterase,Urine Large (Negative); Nitrite,Urine Negative (Negative); PH,Urine 5.5 pH Units (5.0-8.0); Protein,Urine 100 mg/dL (Neg-Trace); Specific Gravity,Urine 1.026 (1.010-1.025); Urobilinogen,Urine Normal (Normal)
[2017-04-27 23:34] LABS: Bacteria,Urine Many per hpf (None-Few); Hyaline Casts,Urine None Seen per lpf (None-Few); Squamous Epithelial Cell,Urine Many per lpf (None-Few); WBC,Urine TNTC per hpf (0-3)
[2017-04-28] MEDS ORDERED: *HR* HYDROcodone/Acet 7.5/325 mg TABLET PO ONE (00:11)
[2017-04-28] MEDS ORDERED: cefTRIAXone 1,000 MG in Water for inj. (sterile) 10 ML IVP ONE (00:34)
--- NOTE | 2017-04-28 02:46 | Internal Med History&Physical ---
Date of Encounter: 04/28/17 Time of Encounter: 02:40 Assessment and Plan (1) UTI (urinary tract infection) Current visit: Yes Status: Acute The patient is not complaining of any urinary changes. She denies any dysuria, increasing urinary frequency, hematuria, and difficulty urinating. UA shows moderate blood and large amount of leukocytes esterase and many bacteria. WBC elevated at 19.1. Will treat patient for UTI with Rocephin. Continue to monitor the patient. Qualifiers: Urinary tract infection type: site unspecified Hematuria presence: with hematuria Qualified Code(s): N39.0 - Urinary tract infection, site not specified; R31.9 - Hematuria, unspecified; R31.9 - Hematuria, unspecified (2) TAMAR (acute kidney injury) Current visit: Yes Status: Acute No history of kidney diseases. Patient admits decrease in appetite and PO intake. Patient appears dry on exam. Creatine elevated at 1.77 and BUN at 38. TAMAR may be secondary to dehydration. Will hold nephrotoxin home medications and NSAIDS including Metformin, Xeloda, losartan, and gabapentin. Will give IV fluids. Continue to monitor the patient closely. (3) Dehydration Current visit: Yes Status: Acute Patient appears dry. Will give IV fluids (4) Diabetes Current visit: No Status: Acute Will hold Metformin. Will place patient on subcutaneous insulin. Continue to monitor. Qualifiers: Diabetes mellitus type: type 2 Diabetes mellitus complication status: with other specified complication Diabetes mellitus nursing home insulin use: unspecified nursing home insulin use status Qualified Code(s): E11.69 - Type 2 diabetes mellitus with other specified complication Internal Medicine - H&P: HPI Chief complaint: Weakness and AMS Admitted From: Emergency Dept History of present illness: Ms. Mckeon is a 56 year old female with a past medical history of rectal cancer , diabetes, hypertension, CAD, and myocardial infarction who presents to the emergency department complaining of weakness and altered mental status. While obtaining history from the patient, the patient stated "I'm just weak and tire. I want to sleep. Leave me alone". The patient admits that she better than when she presented to the emergency department. She admits pain and have telephone in state that it is from a fall she had on April 01. She admits that she fractured her right ankle from the fall but did not fracture her hip. She admits some weakness and fatigue that started today. She states that "I just don't feel good. I'm just tire and all I want to do is sleep." she denies any chest pain, shortness of breath, difficulty breathing, headache, fever, vision changes, abdominal pain, diarrhea, blood in her stool, difficulty urinating, dysuria, bloody her urine, numbness and tingling, any recent travel, and any head trauma. Past Med Surg Social Fam HX - Past Medical History Medical history: asthma, cancer, coronary artery disease, diabetes, hyperlipidemia, hypertension, kidney stones, myocardial infarction, other Psychiatric history: anxiety, depression, PTSD, other - Past Surgical History Surgical History: angioplasty/stent, cholecystectomy, other - Social History Smoking Status: Current every day smoker Packs per day: 0.5 Smokeless Tobacco Status: No Alcohol use: none Drug use: none - Family History Sister Living Status: Still Living Hx Family Cardiac Disorders: Yes (HTN) Hx Family Endocrine Disorder: Yes (DIABETES MELLITUS.) Father Living Status: Hx Family Cancer: Yes (pancreatic cancer) Mother Living Status: Hx Family Cardiac Disorders: Yes Hx Family Endocrine Disorder: Yes (Diabetes Mellitus) Internal Medicine - H&P: Meds Aspirin 81 mg PO DAILY 10/22/16 [History] Cholecalciferol (D-3) [Vitamin D] 1,000 unit PO DAILY 10/22/16 [History] Clopidogrel [Plavix] 75 mg PO DAILY 10/22/16 [History] Duloxetine HCl [Cymbalta] 120 mg PO DAILY 10/22/16 [History] Gabapentin [Neurontin] 600 mg PO HS 10/22/16 [History] Insulin Glargine,Hum.rec.anlog [Lantus Solostar] 16 unit SQ HS 10/22/16 [History ] Losartan Potassium [Cozaar] 50 mg PO DAILY 10/22/16 [History] Metformin HCl [Metformin HCl ER] 1,000 mg PO BID 10/22/16 [History] Simvastatin [Zocor] 40 mg PO HS 10/22/16 [History] Nut.tx.impaired Digest Fxn [Ensure Clear] 1 bottle PO BID 04/12/17 [History] Capecitabine [Xeloda] 1,000 mg PO BID #56 tablet 04/22/17 [Rx] Ferrous Sulfate [Iron] 325 mg PO DAILY 04/22/17 [History] Ondansetron [Zofran] 4 mg PO Q8HR #90 tablet 04/22/17 [Rx] Prochlorperazine Maleate [Compazine] 10 mg PO Q8HR #90 tablet 04/22/17 [Rx] 3 Allergy/AdvReac Type Severity Reaction Status Date / Time diphenhydramine Allergy Itching Verified 04/22/17 10:46 [From Benadryl] All Systems PM: A 10-system review of systems was performed and is negative for pertinent findings except as documented above in the HPI. - Constitutional Vitals: Temp Pulse Resp BP Pulse Ox 98.8 F 109 19 107/57 99 04/28/17 01:19 04/28/17 01:19 04/28/17 01:19 04/28/17 01:19 04/28/17 01:19 General appearance: Present: A&O X 3, no acute distress. Absent: pleasant - Head Head exam: Present: atraumatic, normocephalic - Eye Eye exam: Present: PERRL, conjuntiva pink, sclera anicteric Pupils: Present: PERRL Additional comments: There are dark circles around her eyes. No signs of trauma to her head or eyes. - ENT ENT exam: Present: mucous membranes dry - Neck Neck exam general surgery: Present: supple, trachea midline. Absent: lymphadenopathy - Respiratory Respiratory exam: Present: CTAB. Absent: accessory muscle use, rales, rhonchi, wheezes - Cardiovascular Cardiovascular exam: Present: RRR, +S1, +S2. Absent: diastolic murmur, gallop, rubs, systolic murmur - GI/Abdominal GI/Abdominal exam: Present: normal bowel sounds, soft, no peritoneal signs. Absent: distended, tenderness Additional comments: Colostomy bag is on her RLQ. Soft stools are present in the bag. No blood is present in the colostomy bag at this time. - Extremities Exam Extremities exam: Present: warm, radial pulses palpable and symmetrical. Absent : calf tenderness, cyanotic, pedal edema - Neurological Exam Neurological exam: Present: CN II-XII intact, oriented X3, no focal deficits. Absent: pronater drift, facial droop, speech deficit - Skin Skin exam: Present: dry, intact Internal Med - H&P Results - Labs CBC & Chem 7: 04/27/17 21:44 04/27/17 21:44 - Impressions ITS Impressions Head CT 04/28/17 22:15 IMPRESSION: No acute intracranial abnormality. D/ / Mark Sunshine MD / Mark Sunshine MD Interpreting Provider: Mark Sunshine MD
[2017-04-28] MEDS ORDERED: Naloxone 0.4 MG/ML INJ IVP PRN (03:04)
[2017-04-28] MEDS ORDERED: D5% in Water 1,000 ML IVC PRN (03:09)
[2017-04-28] MEDS ORDERED: Dextrose Gel 15 GM/37.5 ML TUBE PO PRN ×2 (03:09)
[2017-04-28] MEDS ORDERED: *HR* Dextrose 50 % in Water (Syg) 50 ML SYRINGE IVP PRN (03:09)
[2017-04-28] MEDS: 0.9 % Sodium Chloride 1,000 ML IVC SCH ×2 (03:34→15:21)
[2017-04-28 04:57] LABS: Basophils % 0.2 %; Hemoglobin 9.4 g/dL (11.5-15.4); Immature Granulocytes % 0.6 % (0-4); Lymphocytes # 0.5 K/mcL (0.6-4.6); Lymphocytes % 3.4 %; Mean Corpuscular HGB Conc 32.4 g/dL (31.6-35.5); Mean Corpuscular Hemoglobin 28.7 pg (28.0-33.3); Mean Corpuscular Volume 88.4 fL (83.0-100.0); Mean Platelet Volume 11.7 fL (9.4-12.4); Monocytes # 0.9 K/mcL (0.0-1.3); Monocytes % 5.7 %; Neutrophils # 13.6 K/mcL (1.6-8.9); Platelet Count 239 K/mcL (140-400); Red Blood Count 3.28 M/mcL (3.82-4.97); Red Cell Distribution Width 15.3 % (11.5-14.5); Segmented Neutrophils % 90.1 %
[2017-04-28 05:10] LABS: Calcium 9.1 mg/dL (8.6-10.3); Magnesium 1.3 mg/dL (1.6-2.6); Phosphorous 3.1 mg/dL (2.7-4.5); Potassium 4.4 mEq/L (3.5-5.1)
[2017-04-28] MEDS: *HR* Heparin 5,000 UNIT/ML VIAL SQ SCH ×2 (05:52→17:16)
[2017-04-28] MEDS: Ondansetron ODT 4 MG TAB.RAPDIS PO SCH ×3 (07:40→23:01)
[2017-04-28] MEDS: Aspirin 81 MG TAB.CHEW PO SCH (07:40)
[2017-04-28] MEDS: Cholecalciferol (D-3) 1,000 UNIT TABLET PO SCH (07:41)
[2017-04-28] MEDS: ENSURE CLEAR PO SCH ×2 (07:42→20:00)
[2017-04-28] MEDS: Insulin LISPRO 300 UNITS/3 ML VIAL SQ SCH ×4 (07:43→22:44)
[2017-04-28 14:13] LABS: Acinetobacter baumannii by PCR Not Detected (Not Detect); Candida albicans by PCR Not Detected (Not Detect); Candida glabrata by PCR Not Detected (Not Detect); Candida krusei by PCR Not Detected (Not Detect); Candida parapsilosis by PCR Not Detected (Not Detect); Candida tropicalis by PCR Not Detected (Not Detect); Enterococcus by PCR Not Detected (Not Detect); Klebsiella oxytoca by PCR Not Detected (Not Detect); Klebsiella pneumoniae by PCR Not Detected (Not Detect); Pseudomonas aeruginosa by PCR Not Detected (Not Detect); Serratia marcescens by PCR Not Detected (Not Detect); Staphylococcus aureus by PCR Not Detected (Not Detect); Streptococcus agalactiae(B)PCR Not Detected (Not Detect); Streptococcus by PCR Not Detected (Not Detect); Streptococcus pneumoniae PCR Not Detected (Not Detect); Streptococcus pyogenes (A) PCR Not Detected (Not Detect); blaKPC Carbapenem-Resist Gene Not Detected (Not Detect); mecA Methicillin-Resist Gene Not Detected (Not Detect); vanA/B Vancomycin-Resist Genes Not Detected (Not Detect)
[2017-04-28 14:14] LABS: Escherichia coli by PCR ***DETECTED*** (Not Detect)
[2017-04-28] MEDS: Piperacillin/Tazobactam 3.375 GM/200 ML BAG IVPB SCH ×2 (15:22→22:45)
--- NOTE | 2017-04-28 15:43 | Event Note ---
Date of Encounter: 04/28/17 Time of Encounter: 15:41 Admitted overnight for general weakness and malaise and altered mental status. Was found to have UTI, AK I and bacteremia. Received one-time dose IV Rocephin. Change ATB to Zosyn with Escherichia coli bacteremia. Creatinine improving. Continue IV fluids. Infectious disease consulted
[2017-04-28] MEDS: Acetaminophen 325 MG TABLET PO PRN (18:53)
[2017-04-28] MEDS ORDERED: 0.9 % Sodium Chloride 500 ML IVC ONE (22:36)
[2017-04-29] MEDS: Acetaminophen 325 MG TABLET PO PRN ×4 (02:11→21:11)
[2017-04-29 05:01] LABS: Hematocrit 25.1 % (35.3-44.9); Mean Corpuscular HGB Conc 31.9 g/dL (31.6-35.5); Mean Corpuscular Hemoglobin 28.8 pg (28.0-33.3); Mean Corpuscular Volume 90.3 fL (83.0-100.0); Mean Platelet Volume 11.9 fL (9.4-12.4); Platelet Count 205 K/mcL (140-400); Red Blood Count 2.78 M/mcL (3.82-4.97); Red Cell Distribution Width 15.2 % (11.5-14.5)
[2017-04-29 05:08] LABS: BUN/Creatinine Ratio 22 (6-26); Blood Urea Nitrogen 22 mg/dL (6-20); Calcium 8.6 mg/dL (8.6-10.3); Carbon Dioxide 14 mEq/L (23-29); Chloride 110 mEq/L (98-107); Glucose 178 mg/dL (70-105); Osmolality,Calculated 284 (280-300); Potassium 3.7 mEq/L (3.5-5.1); Sodium 133 mEq/L (136-145); eGFR For African Americans > 60 (> 60); eGFR For Non-African Americans 57 (> 60)
[2017-04-29] MEDS: Piperacillin/Tazobactam 3.375 GM/200 ML BAG IVPB SCH ×3 (06:01→23:07)
[2017-04-29] MEDS: *HR* Heparin 5,000 UNIT/ML VIAL SQ SCH ×2 (06:02→21:11)
[2017-04-29] MEDS: Ondansetron ODT 4 MG TAB.RAPDIS PO SCH ×2 (08:09→17:58)
[2017-04-29] MEDS: Cholecalciferol (D-3) 1,000 UNIT TABLET PO SCH (08:09)
[2017-04-29] MEDS: Aspirin 81 MG TAB.CHEW PO SCH (08:09)
[2017-04-29] MEDS: Insulin LISPRO 300 UNITS/3 ML VIAL SQ SCH ×4 (08:27→21:12)
[2017-04-29] MEDS: ENSURE CLEAR PO SCH ×2 (12:05→21:07)
--- NOTE | 2017-04-29 17:15 | Internal Med Progress Note ---
Date of Encounter: 04/29/17 Time of Encounter: 13:00 - Assessment and plan (1) Urinary retention Current Visit: No Status: Resolved Assessment and plan: with reported urinary retention in the ED, Campbell catheter placed on admission. Urology consulted (2) TAMAR (acute kidney injury) Current Visit: Yes Status: Acute Assessment and plan: Cr 1.7 on admission. Baseline normal. Suspect multifactorial with possible urinary retention, UTI and poor by mouth intake prior to arrival. Renal function normalized with insertion of Campbell catheter and IV fluids. Renal ultrasound with mild to moderate right hydronephrosis. Avoid nephrotoxic agents. Monitor repeat renal function. (3) Hydronephrosis Current Visit: Yes Status: Acute Assessment and plan: Renal ultrasound shows mild to moderate right hydronephrosis, no obstructing stone. ABDs/pelvis CT with mild right hydronephrosis and hydroureter, unchanged from 03/18/17 exam. No obstructing stone seen. Briefly discussed with Dr. Merino who suspect secondary to radiation she received for colon cancer. Further recommendations pending official consult. Qualifiers: Hydronephrosis type: with other ureteral stricture Qualified Code(s): N13.1 - Hydronephrosis with ureteral stricture, not elsewhere classified (4) Bacteremia due to Gram-negative bacteria Current Visit: Yes Status: Acute Assessment and plan: 1/2 blood cx's from 04/27/2017 with Escherichia coli, Enterobactese. Likely secondary to UTI. Continue IV Zosyn. Repeat blood cultures. Consult ID when available. (5) Rectal cancer Current Visit: No Status: Acute Assessment and plan: per hx. s/p Robotic rectal resection with diverting loop ileostomy with Dr. Akers on 03/12/17. (6) Diabetes Current Visit: No Status: Acute Assessment and plan: per hx. Cont SSI. 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 secondary to UTI and bacteremia. Lactic acid normal. Treating with IV fluids and IV ATB. Hemodynamically stable, WBC normalized. Cont treating underlying causes. Qualifiers: Sepsis type: Escherichia coli Qualified Code(s): A41.51 - Sepsis due to Escherichia coli [E. coli] (8) Anemia Current Visit: Yes Status: Acute Assessment and plan: Hgb 11.2 on arrival and dropped to 8.0 on 04/29/2017. No active bleeding. Possible dilutional compoenent with IV fluids. Check occult stool, iron studies. Monitor H&H Qualifiers: Anemia type: unspecified type Qualified Code(s): D64.9 - Anemia, unspecified (9) DVT prophylaxis Current Visit: No Status: Acute Assessment and plan: heparin - Time Spent With Patient 25 - 35 minutes - Constitutional Vitals: Temp Pulse Resp BP Pulse Ox 97.6 F 69 16 130/75 93 04/29/17 12:32 04/29/17 12:32 04/29/17 12:32 04/29/17 12:32 04/29/17 12:32 General appearance: Present: A&O X 3, no acute distress. Absent: pleasant Internal Medicine: Result - Labs CBC & Chem 7: 04/29/17 04:00 04/29/17 04:00 Labs: Short CBC 04/29/17 Range/Units 04:00 WBC 10.8 (4.3-11.1) K/mcL Hgb 8.0 L (11.5-15.4) g/dL Hct 25.1 L (35.3-44.9) % Plt Count 205 (140-400) K/mcL BMP 04/29/17 04:00 Sodium 133 L Potassium 3.7 Chloride 110 H Carbon Dioxide 14 L BUN 22 H Creatinine 1.01 Glucose 178 H Calcium 8.6 - Impressions Impressions Retroperitoneum Ultrasound 04/28/17 15:44 IMPRESSION: Mild to moderate right hydronephrosis without identified obstructing calculus. Bladder cannot be assessed due to indwelling Campbell catheter. D/ / Naima Hurd MD / Naima Hurd MD Interpreting Provider: Naima Hurd MD Abdomen/Pelvis CT 04/29/17 10:01 IMPRESSION: 1. Stable appearance since 03/18/2017 of mild right hydronephrosis and hydroureter. No obstructing stone identified. 2. Bladder is decompressed by a Campbell catheter but appears thick walled with adjacent inflammation, compatible with cystitis. 3. Status post low anterior resection with right lower quadrant loop ileostomy. No complication. 4. Status post cholecystectomy. 5. Moderate atherosclerosis. D/ / 04/29/2017 12:02:55 Cat Em MD / [facility] Interpreting Provider: Cat Em MD Consult Discharge Plan - Plan Referrals: Heaven Cho DO [Primary Care Provider] -
--- NOTE | 2017-04-29 17:31 | Urology - Consult Note ---
Date of Encounter: 04/29/17 Time of Encounter: 17:29 - Assessment and Plan (1) Bacteremia due to Gram-negative bacteria Current Visit: Yes Status: Acute (2) Hydronephrosis Current Visit: Yes Status: Acute Assessment and plan: I personally reviewed both CT scans from 5 weeks ago and today. The right hydronephrosis and hydroureter is stable. There is no evidence of ureteral calculi. Unknown etiology for the assumed ureteral obstruction and hydroureter. This doesn't appear to have been present prior to March on previous imaging including a CT scan from 12/2016. Multiple etiologies exist including stricture or malignancy. I favor stricture or nonmalignant obstruction which often occurs from external beam radiation therapy or less commonly secondary to previous pelvic surgery. Because of the positive blood culture and urosepsis which is presumed to have resulted from this obstruction I feel a cystoscopy, retrograde pyelogram and ureteral stent is required. This procedure was discussed in detail with the patient and . They are unsure if they wish to proceed at this time and want to discuss further with other family members before deciding. I feel this is reasonable as she is not acutely ill and has stable vital signs with decreasing white blood cell count. They also understand that the ureteral stent will not "fix" this problem and she could require further procedures in the future. I will reevaluate the patient in the morning and the ureteral stent can be delayed for a day or 2 depending on patient's decision. Qualifiers: Hydronephrosis type: with other ureteral stricture Qualified Code(s): N13.1 - Hydronephrosis with ureteral stricture, not elsewhere classified Urology CN:HPI Consult date: 04/29/17 Reason for consult Urology: Hydronephrosis History of present illness: new pt to the urology service. admitted with concern for infection, lethargic. Positive blood culture gram-negative rods. Renal ultrasound demonstrated right hydronephrosis of unknown origin. Follow-up CT scan demonstrates moderate hydronephrosis and hydroureter down to a transition point in the distal ureter. Reviewing previous imaging this was present 5 weeks ago. No workup for this finding in the past. She reports mostly left sided sharp shooting flank discomfort. No right sided pain. Positive fever at admission. History of invasive rectal cancer. She is undergone low anterior resection and has ostomy in place. She's also undergone chemotherapy and radiation. Past Med Surg Social Fam HX - Past Medical History Medical history: asthma, cancer, coronary artery disease, diabetes, hyperlipidemia, hypertension, kidney stones, myocardial infarction, other Psychiatric history: anxiety, depression, PTSD, other - Past Surgical History Surgical History: angioplasty/stent, cholecystectomy, other - Social History Smoking Status: Current every day smoker Packs per day: 0.5 Smokeless Tobacco Status: No Alcohol use: none Drug use: none - Family History Sister Living Status: Still Living Hx Family Cardiac Disorders: Yes (HTN) Hx Family Endocrine Disorder: Yes (DIABETES MELLITUS.) Father Living Status: Hx Family Cancer: Yes (pancreatic cancer) Mother Living Status: Hx Family Cardiac Disorders: Yes Hx Family Endocrine Disorder: Yes (Diabetes Mellitus) Medications and Allergies Aspirin 81 mg PO DAILY 10/22/16 [History] Cholecalciferol (D-3) [Vitamin D] 1,000 unit PO DAILY 10/22/16 [History] Clopidogrel [Plavix] 75 mg PO DAILY 10/22/16 [History] Duloxetine HCl [Cymbalta] 120 mg PO DAILY 10/22/16 [History] Gabapentin [Neurontin] 600 mg PO HS 10/22/16 [History] Insulin Glargine,Hum.rec.anlog [Lantus Solostar] 16 unit SQ HS 10/22/16 [History ] Losartan Potassium [Cozaar] 50 mg PO DAILY 10/22/16 [History] Metformin HCl [Metformin HCl ER] 1,000 mg PO BID 10/22/16 [History] Simvastatin [Zocor] 40 mg PO HS 10/22/16 [History] Nut.tx.impaired Digest Fxn [Ensure Clear] 1 bottle PO BID 04/12/17 [History] Ferrous Sulfate [Iron] 325 mg PO DAILY 04/22/17 [History] Ondansetron [Zofran] 4 mg PO Q8HR #90 tablet 04/22/17 [Rx] Prochlorperazine Maleate [Compazine] 10 mg PO Q8HR #90 tablet 04/22/17 [Rx] Capecitabine [Xeloda] 1,000 mg PO BID #56 tablet 04/29/17 [Rx] 3 Allergy/AdvReac Type Severity Reaction Status Date / Time diphenhydramine Allergy Itching Verified 04/22/17 10:46 [From Benadryl] Review of Systems - Constitutional fatigue, fever(s), malaise, weakness - EENT Nose, mouth and throat: no dizziness - Cardiovascular no chest pain - Respiratory no cough - Gastrointestinal abdominal pain, nausea - Genitourinary Genitourinary: flank pain - Musculoskeletal back pain - Integumentary no erythema - Neurological weakness, no confusion - Psychiatric anxiety, depression, no suicidal ideation - Hematologic/Lymphatic no easy bleeding - Allergic/Immunologic no throat swelling Exam Initial Vital Signs Temp Pulse Resp BP Pulse Ox 99.2 F 122 16 142/81 99 04/27/17 21:38 04/27/17 21:38 04/27/17 21:38 04/27/17 21:38 04/27/17 21:38 - General physical appearance Present: no distress, moderate pain, chronically ill - Eyes Present: PERRL, conjunctiva is clear - ENT Present: normal nares, no hearing loss - Neck Present: no masses - Respiratory Present: normal respiratory effort - Cardiovascular Cardiovascular exam IM: RRR - Abdomen Abdomen: Present: soft (No masses), tender, bowel sounds - Genitourinary Present: other (Campbell catheter in place draining clear urine) - Integumentary Present: no rash, no growths. Absent: lesions, disoriented - Neurologic Present: normal coordination. Absent: disoriented, confused - Additional Findings No obvious right CVA tenderness. No obvious right flank masses. Urology Results - Labs 04/29/17 04:00 04/29/17 04:00 Abnormal lab results RBC 2.78 M/mcL (3.82-4.97) L 04/29/17 04:00 Hgb 8.0 g/dL (11.5-15.4) L 04/29/17 04:00 Hct 25.1 % (35.3-44.9) L 04/29/17 04:00 RDW 15.2 % (11.5-14.5) H 04/29/17 04:00 Neutrophils # 13.6 K/mcL (1.6-8.9) H 04/28/17 04:38 Lymphocytes # 0.5 K/mcL (0.6-4.6) L 04/28/17 04:38 Sodium 133 mEq/L (136-145) L 04/29/17 04:00 Chloride 110 mEq/L (98-107) H 04/29/17 04:00 Carbon Dioxide 14 mEq/L (23-29) L 04/29/17 04:00 BUN 22 mg/dL (6-20) H 04/29/17 04:00 Est GFR (Non-Af Amer) 57 (> 60) L 04/29/17 04:00 Glucose 178 mg/dL (70-105) H 04/29/17 04:00 POC Glucose 276 (58-89) H 04/29/17 12:02 Magnesium 1.3 mg/dL (1.6-2.6) L 04/28/17 04:38 AST 8 Units/L (13-39) L 04/27/17 21:44 Urine Clarity Turbid (Clear) A 04/27/17 23:18 Ur Specific [place] 1.026 (1.010-1.025) H 04/27/17 23:18 Urine Protein 100 mg/dL (Neg-Trace) H 04/27/17 23:18 Urine Blood Moderate (Negative) H 04/27/17 23:18 Ur Leukocyte Esterase Large (Negative) H 04/27/17 23:18 Urine Microscopic RBC 5-15 per hpf (0-3) H 04/27/17 23:18 Urine Microscopic WBC TNTC per hpf (0-3) H 04/27/17 23:18 Ur Squamous Epith Cells Many per lpf (None-Few) H 04/27/17 23:18 Urine Bacteria Many per hpf (None-Few) H 04/27/17 23:18 Enterobacteriac sp PCR DETECTED (Not Detect) A 04/27/17 23:11 E. coli (PCR) DETECTED (Not Detect) A 04/27/17 23:11 Diabetes panel 04/29/17 Range/Units 04:00 Sodium 133 L (136-145) mEq/L Potassium 3.7 (3.5-5.1) mEq/L Chloride 110 H (98-107) mEq/L Carbon Dioxide 14 L (23-29) mEq/L BUN 22 H (6-20) mg/dL Creatinine 1.01 (0.60-1.20) mg/dL Glucose 178 H (70-105) mg/dL Calcium 8.6 (8.6-10.3) mg/dL Calcium panel 04/29/17 Range/Units 04:00 Calcium 8.6 (8.6-10.3) mg/dL Pituitary panel 04/29/17 Range/Units 04:00 Sodium 133 L (136-145) mEq/L Potassium 3.7 (3.5-5.1) mEq/L Chloride 110 H (98-107) mEq/L Carbon Dioxide 14 L (23-29) mEq/L BUN 22 H (6-20) mg/dL Creatinine 1.01 (0.60-1.20) mg/dL Glucose 178 H (70-105) mg/dL Calcium 8.6 (8.6-10.3) mg/dL Adrenal panel 04/29/17 Range/Units 04:00 Sodium 133 L (136-145) mEq/L Potassium 3.7 (3.5-5.1) mEq/L Chloride 110 H (98-107) mEq/L Carbon Dioxide 14 L (23-29) mEq/L BUN 22 H (6-20) mg/dL Creatinine 1.01 (0.60-1.20) mg/dL Glucose 178 H (70-105) mg/dL Calcium 8.6 (8.6-10.3) mg/dL All other labs normal. Consult Discharge Plan - Plan Referrals: Heaven Cho DO [Primary Care Provider] -
[2017-04-29] MEDS: 0.9 % Sodium Chloride 1,000 ML IVC SCH (17:57)
--- NOTE | 2017-04-29 19:30 | Electrocardiograph Report ---
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
[2017-04-29] MEDS ORDERED: traMADol 50 MG TABLET PO PRN (22:35)
[2017-04-29] MEDS ORDERED: Melatonin 3 MG TABLET PO PRN (22:45)
[2017-04-30] MEDS: Ondansetron ODT 4 MG TAB.RAPDIS PO SCH ×2 (00:20→08:23)
[2017-04-30 05:39] LABS: BUN/Creatinine Ratio 14 (6-26); Blood Urea Nitrogen 11 mg/dL (6-20); Calcium 8.3 mg/dL (8.6-10.3); Carbon Dioxide 17 mEq/L (23-29); Chloride 110 mEq/L (98-107); Glucose 189 mg/dL (70-105); Osmolality,Calculated 284 (280-300); Potassium 3.4 mEq/L (3.5-5.1); Sodium 135 mEq/L (136-145); eGFR For African Americans > 60 (> 60); eGFR For Non-African Americans > 60 (> 60)
[2017-04-30 05:41] LABS: % Iron Saturation 13 % (15-50); Iron 27 mcg/dL (50-170); Transferrin 148 mg/dL (203-362)
[2017-04-30 05:54] LABS: Hematocrit 23.4 % (35.3-44.9); Hemoglobin 7.6 g/dL (11.5-15.4); Mean Corpuscular HGB Conc 32.5 g/dL (31.6-35.5); Mean Corpuscular Hemoglobin 28.4 pg (28.0-33.3); Mean Corpuscular Volume 87.3 fL (83.0-100.0); Mean Platelet Volume 12.3 fL (9.4-12.4); Platelet Count 187 K/mcL (140-400); Red Blood Count 2.68 M/mcL (3.82-4.97); Red Cell Distribution Width 15.2 % (11.5-14.5)
[2017-04-30] MEDS: Piperacillin/Tazobactam 3.375 GM/200 ML BAG IVPB SCH (06:15)
[2017-04-30] MEDS: *HR* Heparin 5,000 UNIT/ML VIAL SQ SCH (06:15)
--- NOTE | 2017-04-30 07:25 | Urology Progress Note ---
Date of Encounter: 04/30/17 Time of Encounter: 07:21 - Assessment and Plan (1) Bacteremia due to Gram-negative bacteria Current Visit: Yes Status: Acute (2) Hydronephrosis Current Visit: Yes Status: Acute Assessment and plan: I asked the patient if she and her had made a decision regarding proceeding with the ureteral stent placement. She expected me to arrive later and states she is not prepared to make the decision. She then told me that "I don't trust [facility]" and "I may not want anything done here". It was obvious the patient is not ready to proceed. I again discussed that I feel she needs a stent at some point or she will continue to have infection issues and risk for urosepsis. At the same time, her condition is stable and could wait for evaluation at an outside hospital if she deisres. I will again see patient this afternoon to discuss. Qualifiers: Hydronephrosis type: with other ureteral stricture Qualified Code(s): N13.1 - Hydronephrosis with ureteral stricture, not elsewhere classified Progress Note Narrative: pt reports no change in symptoms. Objective Initial Vital Signs Temp Pulse Resp BP Pulse Ox 99.2 F 122 16 142/81 99 04/27/17 21:38 04/27/17 21:38 04/27/17 21:38 04/27/17 21:38 04/27/17 21:38 - General physical appearance Present: no distress, chronically ill - Labs 04/30/17 04:57 04/30/17 04:57 Diabetes panel 04/30/17 Range/Units 04:57 Sodium 135 L (136-145) mEq/L Potassium 3.4 L (3.5-5.1) mEq/L Chloride 110 H (98-107) mEq/L Carbon Dioxide 17 L (23-29) mEq/L BUN 11 (6-20) mg/dL Creatinine 0.79 (0.60-1.20) mg/dL Glucose 189 H (70-105) mg/dL Calcium 8.3 L (8.6-10.3) mg/dL Calcium panel 04/30/17 Range/Units 04:57 Calcium 8.3 L (8.6-10.3) mg/dL Pituitary panel 04/30/17 Range/Units 04:57 Sodium 135 L (136-145) mEq/L Potassium 3.4 L (3.5-5.1) mEq/L Chloride 110 H (98-107) mEq/L Carbon Dioxide 17 L (23-29) mEq/L BUN 11 (6-20) mg/dL Creatinine 0.79 (0.60-1.20) mg/dL Glucose 189 H (70-105) mg/dL Calcium 8.3 L (8.6-10.3) mg/dL Adrenal panel 04/30/17 Range/Units 04:57 Sodium 135 L (136-145) mEq/L Potassium 3.4 L (3.5-5.1) mEq/L Chloride 110 H (98-107) mEq/L Carbon Dioxide 17 L (23-29) mEq/L BUN 11 (6-20) mg/dL Creatinine 0.79 (0.60-1.20) mg/dL Glucose 189 H (70-105) mg/dL Calcium 8.3 L (8.6-10.3) mg/dL Consult Discharge Plan - Plan Referrals: Heaven Cho DO [Primary Care Provider] -
[2017-04-30] MEDS: 0.9 % Sodium Chloride 1,000 ML IVC SCH (08:17)
[2017-04-30] MEDS: Insulin LISPRO 300 UNITS/3 ML VIAL SQ SCH ×2 (08:18→12:55)
[2017-04-30] MEDS: Aspirin 81 MG TAB.CHEW PO SCH (08:22)
[2017-04-30] MEDS: Cholecalciferol (D-3) 1,000 UNIT TABLET PO SCH (08:23)
[2017-04-30] MEDS: ENSURE CLEAR PO SCH (08:23)
[2017-04-30] MEDS ORDERED: 0.9 % Sodium Chloride 500 ML ONE (09:49)
--- NOTE | 2017-04-30 12:28 | Discharge Summary ---
Date of Encounter: 04/30/17 Time of Encounter: 12:22 - Discharge Diagnosis (1) Hydronephrosis Priority: Primary Status: Acute Comments: renal ultrasound shows mild to moderate right hydronephrosis, no obstructing stone. ABDs/pelvis CT with mild right hydronephrosis and hydroureter, unchanged from 03/18/17 exam. No obstructing stone seen. Evaluated by urology who noted concern for stricture or nonmalignant obstruction which often occurs from external beam radiation therapy. Urology recommended cystoscopy, retrograde pyelogram and ureteral stent; patient is agreeable to plan however she is requesting transfer to [facility]. Discussed with [facility] transfer center and patient will be transferred as soon as bed is available. Qualifiers: Hydronephrosis type: with other ureteral stricture Qualified Code(s): N13.1 - Hydronephrosis with ureteral stricture, not elsewhere classified (2) Urinary retention Priority: Primary Status: Acute Comments: with reported urinary retention in the ED, Campbell catheter placed on admission. (3) TAMAR (acute kidney injury) Priority: Primary Status: Acute Comments: Cr 1.7 on admission. Baseline normal. Suspect multifactorial with possible urinary retention, UTI and poor by mouth intake prior to arrival. Renal function normalized with insertion of Campbell catheter and IV fluids. Renal ultrasound with mild to moderate right hydronephrosis. Avoid nephrotoxic agents. Cr 0.7 at time of discharge (4) Bacteremia due to Gram-negative bacteria Priority: Primary Status: Acute Comments: 1/2 blood cx's from 04/27/2017 with Escherichia coli, Enterobactese; wheeler- sensitive. Likely secondary to UTI. 04/29/2047 repeat blood cultures NGTD. Continue IV Zosyn (5) Anemia Priority: Primary Status: Acute Comments: Has known iron deficiency anemia Hgb 11.2 on admission and dropped to 7.6 on . No active bleeding. Occult stool negative. Multifactorial with known anemia and dilutional component with IV fluids. Possible dilutional compoenent with IV fluids. Received 1 unit PRBC on 04/30. Cont home iron Qualifiers: Anemia type: iron deficiency Qualified Code(s): D50.8 - Other iron deficiency anemias (6) Rectal cancer Priority: Secondary Status: Acute Comments: (5) Rectal cancer Current Visit: No Status: Acute Assessment and plan: per hx. treated with radiation, chemotherapy and resection. Last chemo 01/2017. S/p Robotic rectal resection with diverting loop ileostomy with Dr. Akers on 02/16. (7) Sepsis Priority: Primary Status: Acute Comments: with hypotension, fever and WBC 19K. secondary to UTI and bacteremia. Lactic acid normal. Treating with IV fluids and IV ATB. Hemodynamically stable, WBC normalized. Cont treating underlying causes. Qualifiers: Sepsis type: Escherichia coli Qualified Code(s): A41.51 - Sepsis due to Escherichia coli [E. coli] (8) Diabetes Priority: Primary Status: Acute Comments: per hx. Cont SSI. 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 use Qualified Code(s): E11.9 - Type 2 diabetes mellitus without complications - Discharge Medications Home Medications: Aspirin 81 mg PO DAILY 10/22/16 [History] Cholecalciferol (D-3) [Vitamin D] 1,000 unit PO DAILY 10/22/16 [History] Clopidogrel [Plavix] 75 mg PO DAILY 10/22/16 [History] Duloxetine HCl [Cymbalta] 120 mg PO DAILY 10/22/16 [History] Gabapentin [Neurontin] 600 mg PO HS 10/22/16 [History] Insulin Glargine,Hum.rec.anlog [Lantus Solostar] 16 unit SQ HS 10/22/16 [History ] Losartan Potassium [Cozaar] 50 mg PO DAILY 10/22/16 [History] Metformin HCl [Metformin HCl ER] 1,000 mg PO BID 10/22/16 [History] Simvastatin [Zocor] 40 mg PO HS 10/22/16 [History] Nut.tx.impaired Digest Fxn [Ensure Clear] 1 bottle PO BID 04/12/17 [History] Ferrous Sulfate [Iron] 325 mg PO DAILY 04/22/17 [History] Ondansetron [Zofran] 4 mg PO Q8HR #90 tablet 04/22/17 [Rx] Prochlorperazine Maleate [Compazine] 10 mg PO Q8HR #90 tablet 04/22/17 [Rx] Capecitabine [Xeloda] 1,000 mg PO BID #56 tablet 04/29/17 [Rx] Allergies/Adverse Reactions: 3 Allergy/AdvReac Type Severity Reaction Status Date / Time diphenhydramine Allergy Itching Verified 04/22/17 10:46 [From Benadryl] Date of admission: 04/29/17 17:22 Primary care physician: Heaven Cho DO Discharging clinician: Nicole Johnson Anticipated date of discharge: 04/30/17 - Patient Status Disposition: Transfer Other Condition: Good Functional capacity at discharge: uses cane/walker Overall status at discharge: patient is progressing back to baseline - Discharge Instructions Follow Up With: Heaven Cho DO [Primary Care Provider] - Interval History: Seen and examined at bedside; she seems more awake and alert today. Urology's recommendation with her and discussed with as well and both patient and preferred to move forward with cystoscopy and stent placement however they are requesting to be transferred to [facility]. She complains of numbness and tingling to bilateral feet which she says is secondary to her neuropathy. Feels tired and weak otherwise she has no complaints. Hospital course: See assessment and plan for hospital course - Time Spent with Patient Total time spent providing and/or coordinating discharge services: Greater than 30 minutes (48 minutes spent on discharge) - Constitutional Vitals: Temp Pulse Resp BP Pulse Ox 98.3 F 71 18 106/57 99 04/30/17 10:33 04/30/17 10:33 04/30/17 10:33 04/30/17 10:33 04/30/17 10:33 General appearance: Present: cachectic, A&O X 3, no acute distress. Absent: pleasant - Head Head exam: Present: atraumatic, normocephalic - Eye Eye exam: Present: PERRL, conjuntiva pink, sclera anicteric Pupils: Present: PERRL - Neck Neck exam general surgery: Present: supple, trachea midline. Absent: lymphadenopathy - Respiratory Respiratory exam: Present: CTAB. Absent: accessory muscle use, rales, rhonchi, wheezes - Cardiovascular Cardiovascular exam: Present: RRR, +S1, +S2. Absent: diastolic murmur, gallop, rubs, systolic murmur - GI/Abdominal GI/Abdominal exam: Present: normal bowel sounds, soft, no peritoneal signs. Absent: distended, tenderness Additional comments: Right lower quadrant ostomy - Extremities Exam Extremities exam: Present: warm, radial pulses palpable and symmetrical. Absent : calf tenderness, cyanotic, pedal edema - Neurological Exam Neurological exam: Present: CN II-XII intact, oriented X3, no focal deficits. Absent: pronater drift, facial droop, speech deficit - Skin Skin exam: Present: dry, intact
[2017-04-30 12:34] VITALS: BP 141/75
== END 2017-04-30 14:45 | disposition short-term general hospital (02) | DRG 720 ==
LOC: EMEROO 21:37 → 3BNU 21:37
PROVIDERS: ADMIT Registered Nurse; ATTEND Registered Nurse

== ENCOUNTER 2017-05-18 19:57 | Observation (INO) ==
--- NOTE | 2017-05-18 20:32 | Emergency Department Note ---
Disposition Clinical Impression: Dehydration, TAMAR (acute kidney injury) UTI (urinary tract infection) Qualifiers: Urinary tract infection type: site unspecified Hematuria presence: with hematuria Qualified Code(s): N39.0 - Urinary tract infection, site not specified ; R31.9 - Hematuria, unspecified; R31.9 - Hematuria, unspecified Sepsis Qualifiers: Sepsis type: sepsis due to unspecified organism Qualified Code(s): A41.9 - Sepsis, unspecified organism Disposition: Admitted As Inpatient Condition: Fair Referrals: Heaven Cho DO [Primary Care Provider] - Forms: ED Satisfaction Letter Time of Disposition: 23:16 General Adult HPI - General Chief complaint: ED Weakness Stated complaint: Dehydrated Time Seen by Provider: 05/18/17 20:08 Source: patient, family Limitations: no limitations Nursing Notes Reviewed: Yes Vital Signs Reviewed: Yes - History of Present Illness HPI Narrative: Patient is a 56 year old female that presents emergency department for weakness and dizziness. She said that this is been ongoing for about the past week. States that she was recently discharged from an outside facility proximally 4-5 days ago. Family member states that she has been hypotensive at home and has not been taking in very much fluids or eating very well. Patient states that she has had some nausea, vomiting and a near syncopal episode here in triage. Triage reports that it was a full syncopal episode. Patient states that she is unable to walk by herself, and is dizzy when she sits up. Patient was told last week from a previous facility that she may have an abscess or a ruptured appendix and they were electing to treat this with antibiotics. Pain Scale: 0 - Related Data Home Medications Medication Instructions Recorded Confirmed Aspirin 81 mg PO DAILY 10/22/16 05/18/17 Cholecalciferol (D-3) [Vitamin D] 1,000 unit PO DAILY 10/22/16 05/18/17 Clopidogrel [Plavix] 75 mg PO DAILY 10/22/16 05/18/17 Duloxetine HCl [Cymbalta] 120 mg PO DAILY 10/22/16 05/18/17 Gabapentin [Neurontin] 600 mg PO HS 10/22/16 05/18/17 Losartan Potassium [Cozaar] 50 mg PO DAILY 10/22/16 05/18/17 Metformin HCl [Metformin HCl ER] 1,000 mg PO BID 10/22/16 05/18/17 Simvastatin [Zocor] 40 mg PO HS 10/22/16 05/18/17 Nut.tx.impaired Digest Fxn [Ensure 1 bottle PO BID 04/12/17 05/18/17 Clear] Ferrous Sulfate [Iron] 325 mg PO DAILY 04/22/17 05/18/17 Docusate [Colace] 100 mg PO BID PRN 05/18/17 05/18/17 Levofloxacin [Levaquin] 750 mg PO DAILY 05/18/17 05/18/17 Oxycodone HCl/Acetaminophen 1 each PO Q6H PRN 05/18/17 05/18/17 [Percocet 5-325 mg Tablet] Tamsulosin [Flomax] 0.4 mg PO DAILY 05/18/17 05/18/17 metroNIDAZOLE [Flagyl] 500 mg PO TID 05/18/17 05/18/17 Previous Rx's Medication Instructions Recorded Ondansetron [Zofran] 4 mg PO Q8HR #90 tablet 04/22/17 Prochlorperazine Maleate 10 mg PO Q8HR #90 tablet 04/22/17 [Compazine] Capecitabine [Xeloda] 1,000 mg PO BID #56 tablet 04/29/17 Allergies Allergy/AdvReac Type Severity Reaction Status Date / Time diphenhydramine Allergy Itching Verified 04/22/17 10:46 [From Benadryl] All systems ED: reviewed and negative except as stated. Constitutional: Reports: weakness Genitourinary: Reports: hematuria Neurological: Reports: other (Dizziness) Psychiatric: Reports: depression Past Medical History - Past Medical History Medical history: Reports: asthma, cancer, coronary artery disease, diabetes, hyperlipidemia, hypertension, kidney stones, myocardial infarction, other Surgical history: Reports: angioplasty/stent, cholecystectomy, other Psychiatric history: Reports: anxiety, depression, PTSD, other - Social History Smoking Status: Current every day smoker Smokeless Tobacco Status: No Alcohol use: Reports: none Drug use: Reports: none Physical Exam - General Limitations: no limitations General appearance: alert, in no apparent distress - Head Head exam: atraumatic, normocephalic - Eye Eye exam: Present: normal appearance, EOMI - Neck Neck exam: Present: normal inspection, full ROM, trachea midline - Respiratory Respiratory exam: Present: normal lung sounds bilaterally. Absent: respiratory distress, wheezes - Cardiovascular Cardiovascular exam: Present: normal rhythm, tachycardia, normal heart sounds, + S1, +S2 - Abdominal Exam Abdominal exam: Present: soft, tenderness (Lower abdominal tenderness.), normal bowel sounds, other (Colostomy bag is in place from previous surgery) - Neurological Exam Neurological exam: Present: alert, oriented X3 - Psychiatric Psychiatric exam: Present: normal affect, other (Patient is tearful on exam area ) - Skin Skin exam: Present: warm, dry, intact Course Vital Signs Temperature 97.8 F 05/18/17 19:59 Pulse Rate 125 05/18/17 19:59 Respiratory Rate 20 05/18/17 19:59 Blood Pressure 86/55 05/18/17 19:59 O2 Sat by Pulse Oximetry 100 05/18/17 19:59 Temperature 97.8 F 05/18/17 19:59 Pulse Rate 93 05/18/17 23:47 Respiratory Rate 17 05/18/17 23:47 Blood Pressure 106/61 05/18/17 23:47 O2 Sat by Pulse Oximetry 97 05/18/17 23:47 Oxygen Delivery Oxygen Delivery Room Air Medical Decision Making - MDM Narrative Medical decision making narrative: Due to the patient having a history of cancer, recent diagnosis of sepsis and presenting tachycardic and hypotensive we will do a sepsis workup here in the emergency department including CBC, BMP, hepatic panel, lactic acid, troponin, blood cultures, urinalysis and EKG, chest x-ray. We will give the patient a fluid bolus. Patient will also be given a dose of Tylenol for her leg pain. Patient's troponin was negative. Patient had a lactic acid of 3.5. Patient appears to have a urinary tract infection I will be treated with Rocephin. EKG showed sinus tachycardia. Chest x-ray was negative. Patient does appear to have some TAMAR. CT scan showed no acute findings per radiology read. Patient will need to be admitted to the hospital for further evaluation and management. The patient and family been updated on the patient's medical condition. I called spoke to the hospitalist and the patient has been accepted to their service. The patient will be admitted to the hospital at this time for further evaluation and management. - Lab Data Lab results reviewed: Yes I reviewed the patient's lab results. Result diagrams: 05/18/17 20:51 05/18/17 20:51 Lab Results 05/18/17 05/18/17 05/18/17 Range/Units 20:51 20:51 20:51 WBC 7.8 (4.3-11.1) K/mcL RBC 4.40 (3.82-4.97) M/mcL Hgb 12.4 (11.5-15.4) g/dL Hct 38.4 (35.3-44.9) % MCV 87.3 (83.0-100.0) fL MCH 28.2 (28.0-33.3) pg MCHC 32.3 (31.6-35.5) g/dL RDW 15.7 H (11.5-14.5) % Plt Count 351 (140-400) K/mcL MPV 11.2 (9.4-12.4) fL Immature Gran % 0.6 (0-4) % Seg Neutrophils % 78.2 % Lymphocytes % 10.3 % Monocytes % 8.8 % Eosinophils % 1.7 % Basophils % 0.4 % Neutrophils # 6.1 (1.6-8.9) K/mcL Lymphocytes # 0.8 (0.6-4.6) K/mcL Monocytes # 0.7 (0.0-1.3) K/mcL Eosinophils # 0.1 (0.0-0.6) K/mcL Basophils # 0.0 (0.0-0.2) K/mcL PT 12.0 (9.4-12.1) Seconds INR 1.1 APTT 27.9 (26.0-36.0) Seconds Sodium 135 L (136-145) mEq/L Potassium 4.4 (3.5-5.1) mEq/L Chloride 97 L (98-107) mEq/L Carbon Dioxide 22 L (23-29) mEq/L BUN 24 H (6-20) mg/dL Creatinine 1.82 H (0.60-1.20) mg/dL Est GFR ( Amer) 35 L (> 60) Est GFR (Non-Af Amer) 29 L (> 60) BUN/Creatinine Ratio 13 (6-26) Glucose 233 H (70-105) mg/dL Calculated Osmolality 292 (280-300) Lactic Acid (0.5-2.2) mmol/L Calcium 10.0 (8.6-10.3) mg/dL Phosphorus 2.9 (2.7-4.5) mg/dL Magnesium 1.4 L (1.6-2.6) mg/dL Total Bilirubin 0.4 (0.3-1.0) mg/dL Direct Bilirubin 0.1 (0.0-0.2) mg/dL Indirect Bilirubin 0.3 (0.0-1.2) mg/dL AST 15 (13-39) Units/L ALT 14 (7-52) Units/L Alkaline Phosphatase 78 (34-104) Units/L Creatine Kinase (30-223) Units/L Troponin I (< 0.04) ng/mL Serum Total Protein 7.8 (6.4-8.9) g/dL Albumin 4.0 (3.5-5.7) g/dL Globulin 3.8 H (2.4-3.5) g/dL Albumin/Globulin Ratio 1.1 (1.1-2.2) Urine Color (Yellow) Urine Clarity (Clear) Urine pH (5.0-8.0) pH Units Ur Specific Norris (1.010-1.025) Urine Protein (Neg-Trace) mg/dL Urine Glucose (UA) (Normal) mg/dL Urine Ketones (Negative) mg/dL Urine Blood (Negative) Urine Nitrite (Negative) Urine Bilirubin (Negative) Urine Urobilinogen (Normal) mg/dL Ur Leukocyte Esterase (Negative) Urine Microscopic RBC (0-3) per hpf Ur Squamous Epith Cells (None-Few) per lpf Amorphous Sediment (Few) Urine Bacteria (None-Few) per hpf Hyaline Casts Ur Culture Indicated? (NO) 05/18/17 05/18/17 05/18/17 Range/Units 20:51 20:51 20:51 WBC (4.3-11.1) K/mcL RBC (3.82-4.97) M/mcL Hgb (11.5-15.4) g/dL Hct (35.3-44.9) % MCV (83.0-100.0) fL MCH (28.0-33.3) pg MCHC (31.6-35.5) g/dL RDW (11.5-14.5) % Plt Count (140-400) K/mcL MPV (9.4-12.4) fL Immature Gran % (0-4) % Seg Neutrophils % % Lymphocytes % % Monocytes % % Eosinophils % % Basophils % % Neutrophils # (1.6-8.9) K/mcL Lymphocytes # (0.6-4.6) K/mcL Monocytes # (0.0-1.3) K/mcL Eosinophils # (0.0-0.6) K/mcL Basophils # (0.0-0.2) K/mcL PT (9.4-12.1) Seconds INR APTT (26.0-36.0) Seconds Sodium (136-145) mEq/L Potassium (3.5-5.1) mEq/L Chloride (98-107) mEq/L Carbon Dioxide (23-29) mEq/L BUN (6-20) mg/dL Creatinine (0.60-1.20) mg/dL Est GFR ( Amer) (> 60) Est GFR (Non-Af Amer) (> 60) BUN/Creatinine Ratio (6-26) Glucose (70-105) mg/dL Calculated Osmolality (280-300) Lactic Acid 3.5 H (0.5-2.2) mmol/L Calcium (8.6-10.3) mg/dL Phosphorus (2.7-4.5) mg/dL Magnesium (1.6-2.6) mg/dL Total Bilirubin (0.3-1.0) mg/dL Direct Bilirubin (0.0-0.2) mg/dL Indirect Bilirubin (0.0-1.2) mg/dL AST (13-39) Units/L ALT (7-52) Units/L Alkaline Phosphatase (34-104) Units/L Creatine Kinase < 10 L (30-223) Units/L Troponin I < 0.03 (< 0.04) ng/mL Serum Total Protein (6.4-8.9) g/dL Albumin (3.5-5.7) g/dL Globulin (2.4-3.5) g/dL Albumin/Globulin Ratio (1.1-2.2) Urine Color (Yellow) Urine Clarity (Clear) Urine pH (5.0-8.0) pH Units Ur Specific Norris (1.010-1.025) Urine Protein (Neg-Trace) mg/dL Urine Glucose (UA) (Normal) mg/dL Urine Ketones (Negative) mg/dL Urine Blood (Negative) Urine Nitrite (Negative) Urine Bilirubin (Negative) Urine Urobilinogen (Normal) mg/dL Ur Leukocyte Esterase (Negative) Urine Microscopic RBC (0-3) per hpf Ur Squamous Epith Cells (None-Few) per lpf Amorphous Sediment (Few) Urine Bacteria (None-Few) per hpf Hyaline Casts Ur Culture Indicated? (NO) 05/18/17 Range/Units 22:25 WBC (4.3-11.1) K/mcL RBC (3.82-4.97) M/mcL Hgb (11.5-15.4) g/dL Hct (35.3-44.9) % MCV (83.0-100.0) fL MCH (28.0-33.3) pg MCHC (31.6-35.5) g/dL RDW (11.5-14.5) % Plt Count (140-400) K/mcL MPV (9.4-12.4) fL Immature Gran % (0-4) % Seg Neutrophils % % Lymphocytes % % Monocytes % % Eosinophils % % Basophils % % Neutrophils # (1.6-8.9) K/mcL Lymphocytes # (0.6-4.6) K/mcL Monocytes # (0.0-1.3) K/mcL Eosinophils # (0.0-0.6) K/mcL Basophils # (0.0-0.2) K/mcL PT (9.4-12.1) Seconds INR APTT (26.0-36.0) Seconds Sodium (136-145) mEq/L Potassium (3.5-5.1) mEq/L Chloride (98-107) mEq/L Carbon Dioxide (23-29) mEq/L BUN (6-20) mg/dL Creatinine (0.60-1.20) mg/dL Est GFR ( Amer) (> 60) Est GFR (Non-Af Amer) (> 60) BUN/Creatinine Ratio (6-26) Glucose (70-105) mg/dL Calculated Osmolality (280-300) Lactic Acid (0.5-2.2) mmol/L Calcium (8.6-10.3) mg/dL Phosphorus (2.7-4.5) mg/dL Magnesium (1.6-2.6) mg/dL Total Bilirubin (0.3-1.0) mg/dL Direct Bilirubin (0.0-0.2) mg/dL Indirect Bilirubin (0.0-1.2) mg/dL AST (13-39) Units/L ALT (7-52) Units/L Alkaline Phosphatase (34-104) Units/L Creatine Kinase (30-223) Units/L Troponin I (< 0.04) ng/mL Serum Total Protein (6.4-8.9) g/dL Albumin (3.5-5.7) g/dL Globulin (2.4-3.5) g/dL Albumin/Globulin Ratio (1.1-2.2) Urine Color Dark Yellow (Yellow) Urine Clarity Turbid A (Clear) Urine pH 6.0 (5.0-8.0) pH Units Ur Specific Norris 1.022 (1.010-1.025) Urine Protein >=300 H (Neg-Trace) mg/dL Urine Glucose (UA) Normal (Normal) mg/dL Urine Ketones Trace H (Negative) mg/dL Urine Blood Large H (Negative) Urine Nitrite Positive A (Negative) Urine Bilirubin Small H (Negative) Urine Urobilinogen Normal (Normal) mg/dL Ur Leukocyte Esterase Moderate H (Negative) Urine Microscopic RBC 15-30 H (0-3) per hpf Ur Squamous Epith Cells Many H (None-Few) per lpf Amorphous Sediment Moderate H (Few) Urine Bacteria None Seen (None-Few) per hpf Hyaline Casts Test Not Performed Ur Culture Indicated? NO. (NO) - Radiology Data Radiology results reviewed: Yes I reviewed the patient's radiology results. Chest X-Ray 05/18/17 20:25 IMPRESSION: No acute abnormality. D/ / Prem Patten MD / Prem Patten MD Interpreting Provider: Prem Patten MD Abdomen/Pelvis CT 05/18/17 20:29 IMPRESSION: 1. No acute findings within the abdomen or pelvis. Stable right-sided hydronephrosis with stent in place. Nonobstructive left-sided nephrolithiasis. 2. No bowel obstruction or significant inflammatory changes. Stable postoperative changes including right lower quadrant loop ileostomy. 3. Gas within the urinary bladder, presumed iatrogenic. Resolution of pericystic inflammatory changes. D/ / 05/18/2017 22:09:02 Vincent Liang MD / jonathna Interpreting Provider: Vincent Liang MD - EKG Data EKG #1 EKG attestation: Yes I reviewed and interpreted this EKG. EKG results narrative: EKG showed sinus tachycardia at a rate of 112 bpm, CO interval of 143, to research 98, QTC of 395 with a normal axis. This is compared to previous EKG on 04/27/17 that showed a sinus tachycardia at a rate of 118 bpm. There are no acute changes noted between these 2 EKGs. Critical Care Time Critical Care Time: Yes Total Critical Care Time: 35 Attestation: Critical care performed: Time is exclusive of separately billable procedures. Time includes: direct patient care, patient reassessment, coordination of patient care, interpretation of data (laboratory data, radiology data, and respiratory data), review of patient's medical records, medical consultation and documentation of patient care. Procedures included in critical care time: Procedures excluded from critical care time: Attestation Statement - Attestation Attestation: I, Kiet Muniz DO, examined this patient [id number] and my medical decision-making was reviewed with Dr. Chacorta Merino, Resident Physician. I agree with the documented findings, disposition and treatment plan as described except to the extent set forth below. Please see my progress notes for details. 56-year-old female presents to emergency room with complaint of generalized malaise weight loss dehydration and nursing syncopal event. Patient is known to have colon cancer that required resection. She was also treated for bacteremia for the last several months. She was discharged home with what they thought was a ruptured appendix in antibiotic regimen covering the intra- abdominal pathology from [facility]. Patient has been home at this time for approximately 6 days. Since coming home she does not want to eat or drink anything. She has had generalized malaise denied any fevers or chills chest pain shortness of breath headache or vision changes. He says some persistence to her abdominal discomfort but no point tenderness guarding or rigidity. Bowel sounds are present. Lungs are clear heart is regular but tachycardic. Blood pressure was hypotensive on presentation. Fluid hydration restarted this time. Based on the symptoms history of presentation there is concern for infectious etiology or sepsis. Patient will be screened with a CBC chemistry blood cultures troponin CPK urinalysis. Chest x-ray and CT with IV contrast of the abdomen will be completed at this time. Antibiotic regimen will be held at this point to the patient is currently on Levaquin, other enema which she does not remember the name. Clinically patient is concerning for infectious etiology and sepsis. We will continue to monitor his treatment course is completed. At this time no critical care splint the patient's treatment course reevaluation will be established. See detailed documentation of physical exam, medical intervention, medical decision-making and disposition of the resident physician's note. 2315 Patient had sepsis reassessment completed. She does have what appears to be urinary tract infection. She has no white blood cell count. Her lactic acid is 3.5. Repeat lactic as ordered. Patient has received 30 m per kilogram fluid rehydration at this point. Patient has what appears to be sepsis secondary to urinary tract infection with kidney insufficiency secondary to dehydration. No acute signs of septic shock at this point. Patient has been fluid responsive and comfortable. Patient will be admitted for definitive management and treatment course here in the hospital this time. No other concerns or issues noted. Patient is stable and good medical condition at the time of admission to the floor. See detailed documentation of the consultation with the hospitalist in the resident physician's note. Approximately 35 minutes of critical care of this patient's treatment course secondary to septic- like presentation. l Sepsis Reassessment Note - Evaluation Current Stage of Sepsis: sepsis Possible Source of Sepsis: genitourinary - Focused Exam Date of Encounter: 05/18/17 Time of Encounter: 23:34 Vital Signs: Vital Signs Temp Pulse Resp BP Pulse Ox 05/18/17 23:47 93 17 106/61 97 05/18/17 23:09 93 16 108/61 99 05/18/17 19:59 97.8 F 125 20 86/55 100 Respiratory Exam: Present: CTA bilaterally Cardiovascular Exam: Present: RRR, S1, S2 Peripheral Pulse Strength: 2+ slightly diminished Peripheral Pulse Location: Pedal Skin Exam: pink
[2017-05-18 21:03] LABS: Basophils % 0.4 %; Eosinophils # 0.1 K/mcL (0.0-0.6); Eosinophils % 1.7 %; Hematocrit 38.4 % (35.3-44.9); Hemoglobin 12.4 g/dL (11.5-15.4); Immature Granulocytes % 0.6 % (0-4); Lymphocytes # 0.8 K/mcL (0.6-4.6); Lymphocytes % 10.3 %; Mean Corpuscular HGB Conc 32.3 g/dL (31.6-35.5); Mean Corpuscular Hemoglobin 28.2 pg (28.0-33.3); Mean Corpuscular Volume 87.3 fL (83.0-100.0); Mean Platelet Volume 11.2 fL (9.4-12.4); Monocytes # 0.7 K/mcL (0.0-1.3); Monocytes % 8.8 %; Neutrophils # 6.1 K/mcL (1.6-8.9); Platelet Count 351 K/mcL (140-400); Red Cell Distribution Width 15.7 % (11.5-14.5); Segmented Neutrophils % 78.2 %
[2017-05-18] MEDS: 0.9 % Sodium Chloride 1,000 ML IVC SCH ×2 (21:09→23:15)
[2017-05-18 21:21] LABS: Albumin/Globulin Ratio 1.1 (1.1-2.2); Bilirubin,Direct 0.1 mg/dL (0.0-0.2); Bilirubin,Indirect 0.3 mg/dL (0.0-1.2); Bilirubin,Total 0.4 mg/dL (0.3-1.0); Globulin 3.8 g/dL (2.4-3.5); INR 1.1; Magnesium 1.4 mg/dL (1.6-2.6); Phosphorous 2.9 mg/dL (2.7-4.5); Potassium 4.4 mEq/L (3.5-5.1); Total Protein 7.8 g/dL (6.4-8.9)
[2017-05-18 21:24] LABS: Activated Partial Thrombo Time 27.9 Seconds (26.0-36.0)
[2017-05-18 22:38] LABS: Bilirubin,Urine Small (Negative); Blood,Urine Large (Negative); Clarity,Urine Turbid (Clear); Glucose,Urine (UA) Normal (Normal); Ketones,Urine Trace mg/dL (Negative); Leukocyte Esterase,Urine Moderate (Negative); Nitrite,Urine Positive (Negative); Protein,Urine >=300 mg/dL (Neg-Trace); Specific Gravity,Urine 1.022 (1.010-1.025); Urobilinogen,Urine Normal (Normal)
[2017-05-18 22:40] LABS: Bacteria,Urine None Seen per hpf (None-Few); Squamous Epithelial Cell,Urine Many per lpf (None-Few)
[2017-05-18 22:45] LABS: Color,Urine Dark Yellow (Yellow)
[2017-05-18 23:00] LABS: Amorphous Sediment,Urine Moderate (Few); RBC,Urine 15-30 per hpf (0-3)
[2017-05-18] MEDS ORDERED: *HR* FentaNYL (PF) 100 MCG/2 ML VIAL IVP ONE (23:08)
[2017-05-18] MEDS ORDERED: cefTRIAXone 1,000 MG in Water for inj. (sterile) 10 ML IVP ONE (23:13)
[2017-05-19] MEDS ORDERED: Naloxone 0.4 MG/ML INJ IVP PRN (03:24)
[2017-05-19] MEDS ORDERED: Ondansetron 4 MG/2 ML VIAL IVP PRN (03:24)
--- NOTE | 2017-05-19 03:30 | Internal Med History&Physical ---
<Abhilash Hartmann - Last Filed: 05/19/17 02:44> Date of Encounter: 05/19/17 Time of Encounter: 02:00 Assessment and Plan (1) TAMAR (acute kidney injury) Current visit: Yes Status: Acute Cr 1.82, baseline below 1.00 Received 2 units in the ED Added maintenance fluids at 125 ml/hr Will monitor (2) Dehydration Current visit: Yes Status: Acute See plan for TAMAR (3) Decreased oral intake Current visit: Yes Status: Acute Consulting nutrition 2L NS in ER and started maintenance fluids (4) UTI (urinary tract infection) Current visit: Yes Status: Acute Large amount of blood and protein, positive nitrites, moderate leuk esterase on UA Started ceftriaxone 1g iv daily Sent for urine and blood cultures Qualifiers: Urinary tract infection type: site unspecified Hematuria presence: with hematuria Qualified Code(s): N39.0 - Urinary tract infection, site not specified; R31.9 - Hematuria, unspecified; R31.9 - Hematuria, unspecified (5) Diabetes Current visit: Yes Status: Acute Elevated today at 233 Adding low dose sliding scale Holding home metformin due to elevated creatinine Qualifiers: Diabetes mellitus type: type 2 Diabetes mellitus complication status: without complication Diabetes mellitus penitentiary insulin use: without penitentiary use Qualified Code(s): E11.9 - Type 2 diabetes mellitus without complications (6) Rectal cancer Current visit: Yes Status: Chronic s/p colectomy and chemoradiation (7) Hyperlipidemia Current visit: Yes Status: Acute continue statin Qualifiers: Hyperlipidemia type: unspecified Qualified Code(s): E78.5 - Hyperlipidemia , unspecified (8) DVT prophylaxis Current visit: Yes Status: Acute Heparin subq q12h Internal Medicine - H&P: HPI Chief complaint: Poor oral intake, dehydration Admitted From: Home Plans for Post Hospital Care: Home History of present illness: Ms. Mckeon is a 56 year old female who presented with dizziness and poor oral intake. Patient states that she has had poor intake since an admission in late April for sepsis secondary to UTI. She reports nausea and dizziness on standing which is associated with SOB. She had one episode of vomiting earlier today, as well as one episode of red brown urine. She denies CP, palpitations, urinary urgency and frequency, and dysuria. She does admit to recent admissions for dehydration and poor oral intake. PMH is significant for colon cancer treated with colectomy and chemoradiation, DM, HTN, and HLD. Past Med Surg Social Fam HX - Past Medical History Medical history: asthma, cancer, coronary artery disease, diabetes, hyperlipidemia, hypertension, kidney stones, myocardial infarction, other Psychiatric history: anxiety, depression, PTSD - Past Surgical History Surgical History: angioplasty/stent, cholecystectomy, other - Social History Smoking Status: Current every day smoker Smokeless Tobacco Status: No Alcohol use: none Drug use: none - Family History Sister Living Status: Still Living Hx Family Cardiac Disorders: Yes (HTN) Hx Family Endocrine Disorder: Yes (DIABETES MELLITUS.) Father Living Status: Hx Family Cancer: Yes (pancreatic cancer) Mother Living Status: Hx Family Cardiac Disorders: Yes Hx Family Endocrine Disorder: Yes (Diabetes Mellitus) Internal Medicine - H&P: Meds Aspirin 81 mg PO DAILY 10/22/16 [History] Cholecalciferol (D-3) [Vitamin D] 1,000 unit PO DAILY 10/22/16 [History] Clopidogrel [Plavix] 75 mg PO DAILY 10/22/16 [History] Duloxetine HCl [Cymbalta] 120 mg PO DAILY 10/22/16 [History] Gabapentin [Neurontin] 600 mg PO HS 10/22/16 [History] Losartan Potassium [Cozaar] 50 mg PO DAILY 10/22/16 [History] Metformin HCl [Metformin HCl ER] 1,000 mg PO BID 10/22/16 [History] Simvastatin [Zocor] 40 mg PO HS 10/22/16 [History] Nut.tx.impaired Digest Fxn [Ensure Clear] 1 bottle PO BID 04/12/17 [History] Ferrous Sulfate [Iron] 325 mg PO DAILY 04/22/17 [History] Ondansetron [Zofran] 4 mg PO Q8HR #90 tablet 04/22/17 [Rx] Prochlorperazine Maleate [Compazine] 10 mg PO Q8HR #90 tablet 04/22/17 [Rx] Capecitabine [Xeloda] 1,000 mg PO BID #56 tablet 04/29/17 [Rx] Docusate [Colace] 100 mg PO BID PRN 05/18/17 [History] Levofloxacin [Levaquin] 750 mg PO DAILY 05/18/17 [History] Oxycodone HCl/Acetaminophen [Percocet 5-325 mg Tablet] 1 each PO Q6H PRN [History] Tamsulosin [Flomax] 0.4 mg PO DAILY 05/18/17 [History] metroNIDAZOLE [Flagyl] 500 mg PO TID 05/18/17 [History] 3 Allergy/AdvReac Type Severity Reaction Status Date / Time diphenhydramine Allergy Itching Verified 04/22/17 10:46 [From Benadryl] All Systems PM: A 10-system review of systems was performed and is negative for pertinent findings except as documented above in the HPI. Review of systems: As per HPI - Constitutional Vitals: Temp Pulse Resp BP Pulse Ox 97.5 F L 89 20 102/58 99 05/19/17 01:40 05/19/17 01:40 05/19/17 01:40 05/19/17 01:40 05/19/17 01:40 General appearance: Present: cooperative, A&O X 3, pleasant, answers questions appropriately - Head Head exam: Present: atraumatic, normal inspection, normocephalic - ENT ENT exam: Present: mucous membranes moist - Neck Neck exam general surgery: Present: trachea midline - Respiratory Respiratory exam: Present: CTAB. Absent: accessory muscle use, respiratory distress - Cardiovascular Cardiovascular exam: Present: RRR, +S1, +S2 - GI/Abdominal GI/Abdominal exam: Present: soft, no peritoneal signs. Absent: tenderness Additional comments: Colostomy in place - Extremities Exam Extremities exam: Absent: pedal edema - Psychiatric Psychiatric exam: Present: normal affect, normal mood. Absent: agitated, anxious - Skin Skin exam: Present: dry, warm Internal Med - H&P Results - Labs CBC & Chem 7: 05/18/17 20:51 05/18/17 20:51 <Rema Gonzalez - Last Filed: 05/19/17 05:34> Date of Encounter: 05/19/17 Internal Medicine - H&P: HPI History of present illness: Ms. Mckeon is a 56 year old female All Systems PM: A 10-system review of systems was performed and is negative for pertinent findings except as documented above in the HPI. - Constitutional Vitals: Temp Pulse Resp BP Pulse Ox 97.6 F 84 20 108/67 98 05/19/17 04:38 05/19/17 04:38 05/19/17 04:38 05/19/17 04:38 05/19/17 04:38 Internal Med - H&P Results - Labs CBC & Chem 7: 05/18/17 20:51 05/18/17 20:51 - Attending Attestation I have seen and examined pt independently. I have discussed with resident physician Dr. Hartmann regarding the management plan. Agree with the documentation.
[2017-05-19] MEDS ORDERED: D5% in Water 1,000 ML IVC PRN (03:44)
[2017-05-19] MEDS ORDERED: Dextrose Gel 15 GM/37.5 ML TUBE PO PRN ×2 (03:44)
[2017-05-19] MEDS ORDERED: *HR* Dextrose 50 % in Water (Syg) 50 ML SYRINGE IVP PRN (03:44)
[2017-05-19] MEDS: 0.9 % Sodium Chloride 1,000 ML IVC SCH ×2 (04:21→17:09)
[2017-05-19] MEDS: *HR* Heparin 5,000 UNIT/ML VIAL SQ SCH ×2 (06:07→18:55)
[2017-05-19 07:28] LABS: Calcium 8.6 mg/dL (8.6-10.3); Potassium 3.8 mEq/L (3.5-5.1)
[2017-05-19] MEDS ORDERED: *HR* Metformin 500 MG TABLET PO SCH (09:00)
[2017-05-19] MEDS: Insulin LISPRO 300 UNITS/3 ML VIAL SQ SCH ×3 (09:47→17:18)
[2017-05-19] MEDS: cefTRIAXone 1,000 MG in Water for inj. (sterile) 10 ML IVP SCH (09:47)
[2017-05-19] MEDS: Aspirin 81 MG TAB.CHEW PO SCH (09:49)
--- NOTE | 2017-05-19 12:32 | Electrocardiograph Report ---
[address] [place] [address] Test Date: 2017-05-18 Pat Name: Brayden Mckeon Department: 102 Room: 2A Gender: F Credit Card Associate: Soraya : 1960 Requested By: Chacorta Merino Order Number: [id number] Reading MD: Antonio Pelletier MD Measurements Intervals [place] Rate: 112 P: 36 NE: 143 QRS: 61 QRSD: 98 T: 16 QT: 329 QTc: 395 Interpretive Statements SINUS TACHYCARDIA WITH PVC INFERIOR MYOCARDIAL INFARCTION, OF INDETERMINATE AGE Electronically Signed On 05-19-2017 12:31:33 EST by Antonio Pelletier MD
[2017-05-19] MEDS ORDERED: Gabapentin 300 MG CAPSULE PO SCH (21:00)
[2017-05-19] MEDS ORDERED: Insulin LISPRO 300 UNITS/3 ML VIAL SQ SCH (21:00)
[2017-05-20 04:09] LABS: Basophils % 0.5 %; Eosinophils # 0.1 K/mcL (0.0-0.6); Eosinophils % 3.4 %; Immature Granulocytes % 0.8 % (0-4); Immature Platelets 5.6 % (1.1-6.1); Lymphocytes # 0.7 K/mcL (0.6-4.6); Lymphocytes % 18.7 %; Mean Corpuscular Hemoglobin 28.1 pg (28.0-33.3); Mean Corpuscular Volume 87.7 fL (83.0-100.0); Mean Platelet Volume 11.6 fL (9.4-12.4); Monocytes # 0.4 K/mcL (0.0-1.3); Monocytes % 9.8 %; Neutrophils # 2.5 K/mcL (1.6-8.9); Platelet Count 224 K/mcL (140-400); Red Blood Count 3.42 M/mcL (3.82-4.97); Red Cell Distribution Width 15.9 % (11.5-14.5); Segmented Neutrophils % 66.8 %
[2017-05-20 04:10] LABS: Hemoglobin 9.6 g/dL (11.5-15.4)
[2017-05-20 04:47] LABS: BUN/Creatinine Ratio 22 (6-26); Blood Urea Nitrogen 16 mg/dL (6-20); Calcium 8.6 mg/dL (8.6-10.3); Carbon Dioxide 25 mEq/L (23-29); Chloride 111 mEq/L (98-107); Glucose 144 mg/dL (70-105); Osmolality,Calculated 296 (280-300); Potassium 3.8 mEq/L (3.5-5.1); Sodium 141 mEq/L (136-145); eGFR For African Americans > 60 (> 60); eGFR For Non-African Americans > 60 (> 60)
[2017-05-20] MEDS: *HR* Heparin 5,000 UNIT/ML VIAL SQ SCH (05:42)
[2017-05-20] MEDS: Insulin LISPRO 300 UNITS/3 ML VIAL SQ SCH ×2 (08:20→12:04)
--- NOTE | 2017-05-20 08:26 | Oncology Inp Consult Note ---
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 She will start with PO xeloda and add oxaliplatin after out-pt, port--as she is on plavix--discussed with hospitalist MILA barnes, follow up outpt with labs next Wednesday Plan was reviewed with patient bedside yesterday - Data of Consult Requesting Physician: Odalys Haro Primary Care Provider: Heaven Cho, - Consult Narrative Reason for consult: patient had outpatient clinic appt 05/20/17 for chemo, seen in the hospital History of present illness: Brayden Mckeon is a 56 year old female who is being seen for rectal cancer-- [id number], moderately diff adenoca 56-year-old female with history of diabetes mellitus, hypertension, history of myocardial infarction depression, cervical cancer treated with surgery 2 in 1992 (no chemo or RT), vitamin D deficiency Tourette's syndrome coronary artery disease GI ulcers bronchitis diabetes neuropathy and sciatica who had noticed rectal bleeding since - or so was further evaluated with a colonoscopy. Colonoscopy showed a fungating partially obstructing large mass in the rectum. The dimensions measured a 4 cm in length diameter measured 16 mm per endoscopy report exact location not clear, no bleeding was noted. These were performed on 10/22/2016 which shows invasive adenocarcinoma. CT scan of the chest abdomen and pelvis is reviewed imaging findings significant for right lower lobe groundglass nodules, perirectal retroperitoneal adenopathy. Episode of shingles in the left neck area October 2016 prior to beginning chemoradiation therapy and an episode of UTI Completed RT around 01/06/17 with PO xeloda She underwent robotic low ante resection of rectum and diverting ileostomy 03/19 , pT3 (0/3 LN positive) She underwent diagnostic lap subsequently for prolonged post op ileus. Post surgery--adjuvant chemotherapy was planned with Xelox. Patient is hopitalized with dehydration, UTI ac renal injury. Cx remain negative of blood, urine. Past Med Surg Social Fam HX - Past Medical History Medical history: asthma, cancer, coronary artery disease, diabetes, hyperlipidemia, hypertension, kidney stones, myocardial infarction, other Psychiatric history: anxiety, depression, PTSD - Past Surgical History Surgical History: angioplasty/stent, cholecystectomy, other - Social History Smoking Status: Current every day smoker Smokeless Tobacco Status: No Alcohol use: none Drug use: none - Family History Sister Living Status: Still Living Hx Family Cardiac Disorders: Yes (HTN) Hx Family Endocrine Disorder: Yes (DIABETES MELLITUS.) Father Living Status: Hx Family Cancer: Yes (pancreatic cancer) Mother Living Status: Hx Family Cardiac Disorders: Yes Hx Family Endocrine Disorder: Yes (Diabetes Mellitus) Medications and Allergies Aspirin 81 mg PO DAILY 10/22/16 [History] Cholecalciferol (D-3) [Vitamin D] 1,000 unit PO DAILY 10/22/16 [History] Clopidogrel [Plavix] 75 mg PO DAILY 10/22/16 [History] Duloxetine HCl [Cymbalta] 120 mg PO DAILY 10/22/16 [History] Gabapentin [Neurontin] 600 mg PO HS 10/22/16 [History] Losartan Potassium [Cozaar] 50 mg PO DAILY 10/22/16 [History] Metformin HCl [Metformin HCl ER] 1,000 mg PO BID 10/22/16 [History] Simvastatin [Zocor] 40 mg PO HS 10/22/16 [History] Nut.tx.impaired Digest Fxn [Ensure Clear] 1 bottle PO BID 04/12/17 [History] Ferrous Sulfate [Iron] 325 mg PO DAILY 04/22/17 [History] Ondansetron [Zofran] 4 mg PO Q8HR #90 tablet 04/22/17 [Rx] Prochlorperazine Maleate [Compazine] 10 mg PO Q8HR #90 tablet 04/22/17 [Rx] Capecitabine [Xeloda] 1,000 mg PO BID #56 tablet 04/29/17 [Rx] Docusate [Colace] 100 mg PO BID PRN 05/18/17 [History] Levofloxacin [Levaquin] 750 mg PO DAILY 05/18/17 [History] Oxycodone HCl/Acetaminophen [Percocet 5-325 mg Tablet] 1 each PO Q6H PRN [History] Tamsulosin [Flomax] 0.4 mg PO DAILY 05/18/17 [History] Levofloxacin [Levaquin] 500 mg PO DAILY #5 tablet 05/20/17 [Rx] 3 Allergy/AdvReac Type Severity Reaction Status Date / Time diphenhydramine Allergy Itching Verified 04/22/17 10:46 [From Benadryl] Constitutional: Present: weakness Oncology - Exam - Constitutional Vitals: Temp Pulse Resp BP Pulse Ox 98.3 F 81 14 112/72 96 05/20/17 08:13 05/20/17 08:13 05/20/17 08:13 05/20/17 08:13 05/20/17 08:13 General appearance: average body habitus - Head Head exam: Present: atraumatic, normal inspection - Eye Eye exam: Present: EOMI - ENT ENT exam: Present: mucous membranes moist - Neck Neck exam: Present: full ROM - Respiratory Respiratory exam: Present: CTAB - Cardiovascular Cardiovascular exam: Present: +S1 - GI/Abdominal GI/Abdominal exam: Present: normal bowel sounds, soft - Extremities Exam Extremities exam: Present: normal inspection - Neurological Exam Neurological exam: Present: alert, CN II-XII intact, oriented X3 - Skin Skin exam: Present: normal color Oncology - Results Labs: Short CBC 05/20/17 Range/Units 03:19 WBC 3.8 L D (4.3-11.1) K/mcL Hgb 9.6 L D (11.5-15.4) g/dL Hct 30.0 L (35.3-44.9) % Plt Count 224 (140-400) K/mcL Neutrophils # 2.5 (1.6-8.9) K/mcL BMP 05/20/17 03:19 Sodium 141 Potassium 3.8 Chloride 111 H Carbon Dioxide 25 BUN 16 Creatinine 0.74 Glucose 144 H Calcium 8.6 Consult Discharge Plan - Plan Referrals: Heaven Cho DO [Primary Care Provider] - Prescriptions: Levofloxacin [Levaquin] 500 mg PO DAILY #5 tablet
--- NOTE | 2017-05-20 08:55 | Discharge Summary ---
Date of Encounter: 05/20/17 Time of Encounter: 08:52 - Discharge Diagnosis (1) Rectal cancer Priority: Secondary Status: Chronic (2) TAMAR (acute kidney injury) Priority: Primary Status: Acute (3) UTI (urinary tract infection) Priority: Primary Status: Acute Qualifiers: Urinary tract infection type: site unspecified Hematuria presence: with hematuria Qualified Code(s): N39.0 - Urinary tract infection, site not specified; R31.9 - Hematuria, unspecified; R31.9 - Hematuria, unspecified (4) Dehydration Priority: Primary Status: Acute (5) Hyperlipidemia Priority: Secondary Status: Acute Qualifiers: Hyperlipidemia type: unspecified Qualified Code(s): E78.5 - Hyperlipidemia , unspecified - Discharge Medications Prescriptions: Levofloxacin [Levaquin] 500 mg PO DAILY #5 tablet Home Medications: Aspirin 81 mg PO DAILY 10/22/16 [History] Cholecalciferol (D-3) [Vitamin D] 1,000 unit PO DAILY 10/22/16 [History] Clopidogrel [Plavix] 75 mg PO DAILY 10/22/16 [History] Duloxetine HCl [Cymbalta] 120 mg PO DAILY 10/22/16 [History] Gabapentin [Neurontin] 600 mg PO HS 10/22/16 [History] Losartan Potassium [Cozaar] 50 mg PO DAILY 10/22/16 [History] Metformin HCl [Metformin HCl ER] 1,000 mg PO BID 10/22/16 [History] Simvastatin [Zocor] 40 mg PO HS 10/22/16 [History] Nut.tx.impaired Digest Fxn [Ensure Clear] 1 bottle PO BID 04/12/17 [History] Ferrous Sulfate [Iron] 325 mg PO DAILY 04/22/17 [History] Ondansetron [Zofran] 4 mg PO Q8HR #90 tablet 04/22/17 [Rx] Prochlorperazine Maleate [Compazine] 10 mg PO Q8HR #90 tablet 04/22/17 [Rx] Capecitabine [Xeloda] 1,000 mg PO BID #56 tablet 04/29/17 [Rx] Docusate [Colace] 100 mg PO BID PRN 05/18/17 [History] Levofloxacin [Levaquin] 750 mg PO DAILY 05/18/17 [History] Oxycodone HCl/Acetaminophen [Percocet 5-325 mg Tablet] 1 each PO Q6H PRN [History] Tamsulosin [Flomax] 0.4 mg PO DAILY 05/18/17 [History] Levofloxacin [Levaquin] 500 mg PO DAILY #5 tablet 05/20/17 [Rx] Allergies/Adverse Reactions: 3 Allergy/AdvReac Type Severity Reaction Status Date / Time diphenhydramine Allergy Itching Verified 04/22/17 10:46 [From Benadryl] Procedures/tests Complete & Pending: Procedures Performed prior 72 hours Category Date Time Status IR cvc insert with port [IR] Routine IR 05/20/17 Ordered IR us guide needle place [IR] Routine IR 05/20/17 Ordered Date of admission: 05/19/17 01:06 Primary care physician: Heaven Cho DO Consults: 05/19/17 02:03 Consult to Nutrition [CONS] Routine Comment: Consulting Provider: NUTRITION Reason for Dietary Consult: MST Score 05/20/17 07:47 Consult to Interventional Radiology [CONS] Routine Consulting Provider: Radiology Interventional Cols Reason for Consult: Needs ports for chemo Call Completed: No - Patient Status Disposition: Home, Self-Care Overall status at discharge: patient is progressing back to baseline - Discharge Instructions Instructions: Urinary Tract Infection in Women (DC), Sepsis (DC) Follow Up With: Heaven Cho DO [Primary Care Provider] - 05/28/17 3:20 pm (APPT IS WITH DR PAINTING) Kelvin Silva MD [Partnered Physician] - 05/25/17 9:40 am - Diet and Activity Activity: increase activity as tolerated Diet: diabetic diet Hospital course: Ms. Mckeon is a 56 year old female who has a history of rectal cancer treated with colectomy follows up with Dr. Silva, DM, HTN, and HLD who presented with dizziness and poor oral intake. She was diagnosed with a urinary tract infection. Unfortunately cultures were not sent. I&O discharging the patient on Levaquin based on previous cultures. She also had signs of dehydration with acute kidney injury. She was hydrated and her kidney function did improve. Her oncologist did see the patient with us and the plan was to try to get a port placed for hydration purposes. Unfortunately this could not be done as the patient has been on Plavix. She will follow-up with her oncologist and this will need to be set up at some point with her Plavix held for 5 days. - Time Spent with Patient Total time spent providing and/or coordinating discharge services: Greater than 30 minutes - Constitutional Vitals: Temp Pulse Resp BP Pulse Ox 98.3 F 81 14 112/72 96 05/20/17 08:13 05/20/17 08:13 05/20/17 08:13 05/20/17 08:13 05/20/17 08:23 General appearance: Present: cooperative, A&O X 3, pleasant, answers questions appropriately Exam: GEN: NAD CVS: RRR. S1, S2, No m/r/g RESP: CTAB ABD: Soft, NT, ND, +BS EXT: No edema. 2+ DP. No rashes NEURO: Nonfocal
[2017-05-20] MEDS: Aspirin 81 MG TAB.CHEW PO SCH (10:27)
[2017-05-20] MEDS: cefTRIAXone 1,000 MG in Water for inj. (sterile) 10 ML IVP SCH (10:28)
[2017-05-20 12:13] VITALS: BP 114/67
--- NOTE | 2017-05-20 13:48 | Physician Discharge Referral ---
- Diagnosis (1) Rectal cancer Priority: Secondary Status: Chronic (2) TAMAR (acute kidney injury) Priority: Primary Status: Acute (3) UTI (urinary tract infection) Priority: Primary Status: Acute (4) Dehydration Priority: Primary Status: Acute (5) Hyperlipidemia Priority: Secondary Status: Acute - Respiratory Orders Smoking Cessation: Smoking cessation has been advised. For more information, call the [employer] Quit Line at 9-005-SJOA-NOW. - Services Needed Following services are medically necessary services: Nursing, Home Health Aide - Transfer Medications Prescriptions: Levofloxacin [Levaquin] 500 mg PO DAILY #5 tablet Home Medications: Aspirin 81 mg PO DAILY 10/22/16 [History] Cholecalciferol (D-3) [Vitamin D] 1,000 unit PO DAILY 10/22/16 [History] Clopidogrel [Plavix] 75 mg PO DAILY 10/22/16 [History] Duloxetine HCl [Cymbalta] 120 mg PO DAILY 10/22/16 [History] Gabapentin [Neurontin] 600 mg PO HS 10/22/16 [History] Losartan Potassium [Cozaar] 50 mg PO DAILY 10/22/16 [History] Metformin HCl [Metformin HCl ER] 1,000 mg PO BID 10/22/16 [History] Simvastatin [Zocor] 40 mg PO HS 10/22/16 [History] Nut.tx.impaired Digest Fxn [Ensure Clear] 1 bottle PO BID 04/12/17 [History] Ferrous Sulfate [Iron] 325 mg PO DAILY 04/22/17 [History] Ondansetron [Zofran] 4 mg PO Q8HR #90 tablet 04/22/17 [Rx] Prochlorperazine Maleate [Compazine] 10 mg PO Q8HR #90 tablet 04/22/17 [Rx] Capecitabine [Xeloda] 1,000 mg PO BID #56 tablet 04/29/17 [Rx] Docusate [Colace] 100 mg PO BID PRN 05/18/17 [History] Levofloxacin [Levaquin] 750 mg PO DAILY 05/18/17 [History] Oxycodone HCl/Acetaminophen [Percocet 5-325 mg Tablet] 1 each PO Q6H PRN [History] Tamsulosin [Flomax] 0.4 mg PO DAILY 05/18/17 [History] Levofloxacin [Levaquin] 500 mg PO DAILY #5 tablet 05/20/17 [Rx] Allergies/Adverse Reactions: 3 Allergy/AdvReac Type Severity Reaction Status Date / Time diphenhydramine Allergy Itching Verified 04/22/17 10:46 [From [place]] Certification: Further, I certify that my clinical findings support that this patient is homebound (i.e. absences from home require considerable and taxing effort and are for medical reasons or sikhism services or infrequently or short duration when for other reasons) because: Homebound Reason: Patient requires assistance of a person or device to safely leave home Attestation: My signature below is to certify that this patient is under my care and that I, or nurse practitioner, or a physician's assistant professor of anthropology working with me, has a face-to -face encounter with this patient.
== END 2017-05-20 14:11 | disposition home or self-care (01) ==
LOC: EMEROO 19:57 → 2ANU 19:57
PROVIDERS: ADMIT Internal Medicine; ATTEND Internal Medicine

== ENCOUNTER 2017-12-08 08:21 | Inpatient (IN) ==
--- NOTE | 2017-12-08 08:26 | Emergency Department Note ---
Disposition Clinical Impression: Hydronephrosis, right UTI (urinary tract infection) Qualifiers: Urinary tract infection type: site unspecified Hematuria presence: with hematuria Qualified Code(s): N39.0 - Urinary tract infection, site not specified Sepsis Qualifiers: Sepsis type: sepsis due to unspecified organism Qualified Code(s): A41.9 - Sepsis, unspecified organism Disposition: Admitted As Inpatient Condition: Good Time of Disposition: 11:43 Abdominal Pain HPI - General Chief Complaint: ED Abdominal Pain Stated Complaint: Rt Flank pain Time Seen by Provider: 12/08/17 08:25 Source: patient, family Mode of arrival: ambulatory Limitations: no limitations Nursing Notes Reviewed: Yes Vital Signs Reviewed: Yes - History of Present Illness HPI Narrative: 57-year-old female history of diabetes, rectal cancer and kidney disease presents emergency department with flank pain. Patient reports pain mostly on her right side that is nonradiating. Quite sharp in nature. This is been ongoing for the past several months worse today. It does not prove with robbing the area as well as laying on her stomach. Anytime she moves it is uncomfortable. She has a history of rectal cancer that required a ileostomy and radiation therapy. Due to the radiation therapy she had scar tissue to the right kidney and at one point had a stent in May 2017 which was then removed in June. Currently there is no stent. She does report some pain when she urinates. She denies any burning with urination or hematuria. Denies nausea or vomiting. She has not taken anything for the pain. She is scheduled to see the urologist Dr. Merino who will possibly perform an urostomy. Pt Subjective Complaint: abdominal pain, flank pain - Related Data Home Medications Medication Instructions Recorded Confirmed Cholecalciferol (D-3) [Vitamin D] 1,000 unit PO DAILY 10/22/16 12/08/17 Duloxetine HCl [Cymbalta] 120 mg PO DAILY 10/22/16 12/08/17 Gabapentin [Neurontin] 600 mg PO HS 10/22/16 12/08/17 Losartan Potassium [Cozaar] 50 mg PO DAILY 10/22/16 12/08/17 Metformin HCl [Metformin HCl ER] 1,000 mg PO BID 10/22/16 12/08/17 Ferrous Sulfate [Iron] 325 mg PO DAILY 04/22/17 12/08/17 Exenatide [Byetta] 5 mcg SQ BID 10/05/17 12/08/17 Acetaminophen [Acetaminophen ER] 650 mg PO Q6H PRN 11/30/17 12/08/17 Atorvastatin [Lipitor] 40 mg PO HS 11/30/17 12/08/17 hydrOXYzine HCl [Hydroxyzine HCl] 25 mg PO HS 12/08/17 12/08/17 Allergies Allergy/AdvReac Type Severity Reaction Status Date / Time diphenhydramine Allergy Hives Verified 11/30/17 07:57 [From Benadryl] All systems ED: reviewed and negative except as stated. Review of Systems: As Per HPI Constitutional: Reports: fever (Tactile), chills ENT ED: Denies: congestion Cardiovascular: Denies: chest pain Respiratory: Denies: cough, dyspnea Gastrointestinal: Reports: abdominal pain. Denies: nausea, vomiting, diarrhea Genitourinary: Reports: dysuria. Denies: urgency, frequency, hematuria Musculoskeletal: Reports: back pain Integumentary: Denies: rash, abrasion Neurological: Denies: headache Abdominal Pain PMH - Past Medical History Medical history: Reports: asthma, cancer, coronary artery disease, diabetes, hyperlipidemia, hypertension, myocardial infarction, other Female Surgical History: Reports: angioplasty/stent Psychiatric history: Reports: anxiety, depression, PTSD - Social History Smoking status: Current every day smoker Alcohol use: Reports: none Drug use: Reports: none Physical Exam - General Limitations: no limitations General appearance: alert, in no apparent distress - Head Head exam: atraumatic, normocephalic, normal inspection - Eye Eye exam: Present: normal appearance, PERRL, EOMI - ENT ENT exam: normal exam, normal oropharynx, mucous membranes moist - Neck Neck exam: Present: normal inspection, full ROM, trachea midline - Chest Chest inspection: Present: normal inspection, symmetric chest wall rise - Respiratory Respiratory exam: Present: normal lung sounds bilaterally - Cardiovascular Cardiovascular exam: Present: regular rate, normal rhythm, normal heart sounds - Abdominal Exam Abdominal exam: Present: soft, tenderness, normal bowel sounds, scar (Over the right upper abdomen). Absent: Non-Tender, distention, guarding, rebound, rigidity Abdominal tenderness: Present: diffuse - Extremities Exam Extremities exam: Present: normal inspection, full ROM, normal capillary refill. Absent: tenderness, pedal edema - Back Exam Back exam: Present: normal inspection, full ROM. Absent: tenderness, CVA tenderness (R), CVA tenderness (L) - Neurological Exam Neurological exam: Present: alert, oriented X3 - Psychiatric Psychiatric exam: Present: normal affect, normal mood - Skin Skin exam: Present: warm, dry, intact, normal color. Absent: rash, cyanosis, diaphoresis Course Course Narrative: Patient reports flank pain on the right side where her prior consent was place. Is currently not there. She does report some urinary symptoms and diffuse abdominal tenderness. History of rectal cancer and reversal of ileostomy. Denies any changes in bowel habits. On arrival she is tachycardic with a high temperature. Concerning for possible sepsis workup initiated. Urinalysis. CT of the abdomen and pelvis as well. Symptom control with medications and IV fluids. - Reevaluation(s) Reevaluation #1: Urinalysis is consistent with infection. Concern for possible urosepsis which she has had in the past. Blood cultures and urine culture. Will initiate ceftriaxone. Her lactate is also elevated 2.4. She is not in septic shock as her blood pressure remains stable. She will not require the 30 mL per kilogram fluid bolus. Patient will be admitted to the medicine service. Impression is urinary tract infection, sepsis, severe right hydronephrosis. Time: 09:25 - Consultations Consultation #1: Spoke with Dr. Mitchell urologist who will be happy to consult on the floor. 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 She is scheduled for a nephrostomy tube on Dec 13, 5 days from now. Interventional radiology also is aware and will be placing nephrostomy tube later today. Patient has been NPO since last night. Time: 11:12 Consultation #2: Spoke with on-call hospitalist koko Dalal to admit for UTI, sepsis, severe right hydronephrosis. No further orders at this time Time: 11:42 Vital Signs Temperature 99.7 F H 12/08/17 08:25 Pulse Rate 105 12/08/17 08:25 Respiratory Rate 16 12/08/17 08:25 Blood Pressure 174/89 12/08/17 08:25 O2 Sat by Pulse Oximetry 98 12/08/17 08:25 Temperature 99.7 F H 12/08/17 08:25 Pulse Rate 114 12/08/17 10:03 Respiratory Rate 17 12/08/17 10:03 Blood Pressure 172/76 12/08/17 10:03 O2 Sat by Pulse Oximetry 94 12/08/17 10:03 Oxygen Delivery Oxygen Delivery Room Air Abdominal Pain - MDM Narrative Medical decision making narrative: Patient was discussed with my attending physician who agrees with ED management and final disposition. They independently evaluated the patient. Please refer to their attestation to this encounter for additional information. This note was generated by [employer] voice recognition software and as a result grammatical or spelling errors may occur using this program. - Medical Records Medical records reviewed: Yes I reviewed the patient's medical records. - Lab Data Lab results reviewed: Yes I reviewed the patient's lab results. Result diagrams: 12/08/17 08:41 12/08/17 08:41 Lab Results 12/08/17 12/08/17 12/08/17 Range/Units 08:41 08:41 08:46 WBC 13.1 H (4.3-11.1) K/mcL RBC 4.62 (3.82-4.97) M/mcL Hgb 14.5 (11.5-15.4) g/dL Hct 42.7 (35.3-44.9) % MCV 92.4 (83.0-100.0) fL MCH 31.4 (28.0-33.3) pg MCHC 34.0 (31.6-35.5) g/dL RDW 13.6 (11.5-14.5) % Plt Count 217 (140-400) K/mcL MPV 11.3 (9.4-12.4) fL Immature Gran % 0.5 (0-4) % Seg Neutrophils % 83.9 % Lymphocytes % 5.9 % Monocytes % 6.4 % Eosinophils % 3.0 % Basophils % 0.3 % Neutrophils # 11.0 H (1.6-8.9) K/mcL Lymphocytes # 0.8 (0.6-4.6) K/mcL Monocytes # 0.8 (0.0-1.3) K/mcL Eosinophils # 0.4 (0.0-0.6) K/mcL Basophils # 0.0 (0.0-0.2) K/mcL PT (9.4-12.1) Seconds INR APTT (26.0-36.0) Seconds Sodium 134 L (136-145) mEq/L Potassium 3.9 (3.5-5.1) mEq/L Chloride 102 (98-107) mEq/L Carbon Dioxide 23 (23-29) mEq/L BUN 17 (6-20) mg/dL Creatinine 0.94 (0.60-1.20) mg/dL Est GFR ( Amer) > 60 (> 60) Est GFR (Non-Af Amer) > 60 (> 60) BUN/Creatinine Ratio 18 (6-26) Glucose 368 H (70-105) mg/dL Calculated Osmolality 295 (280-300) Lactic Acid (0.5-2.2) mmol/L Calcium 9.6 (8.6-10.3) mg/dL Total Bilirubin 0.6 (0.3-1.0) mg/dL Direct Bilirubin 0.1 (0.0-0.2) mg/dL Indirect Bilirubin 0.5 (0.0-1.2) mg/dL AST 10 L (13-39) Units/L ALT 14 (7-52) Units/L Alkaline Phosphatase 88 (34-104) Units/L Serum Total Protein 7.2 (6.4-8.9) g/dL Albumin 4.0 (3.5-5.7) g/dL Globulin 3.2 (2.4-3.5) g/dL Albumin/Globulin Ratio 1.3 (1.1-2.2) Lipase 137 H (11-82) Units/L Urine Color Yellow (Yellow) Urine Clarity Turbid A (Clear) Urine pH 6.0 (5.0-8.0) pH Units Ur Specific [place] 1.020 (1.010-1.025) Urine Protein >=300 H (Neg-Trace) mg/dL Urine Glucose (UA) >=1000 H (Normal) mg/dL Urine Ketones Negative (Negative) mg/dL Urine Blood Large H (Negative) Urine Nitrite Negative (Negative) Urine Bilirubin Negative (Negative) Urine Urobilinogen Normal (Normal) mg/dL Ur Leukocyte Esterase Moderate H (Negative) Urine Microscopic RBC TNTC H (0-3) per hpf Urine Microscopic WBC TNTC H (0-3) per hpf Ur Squamous Epith Cells Many H (None-Few) per lpf Urine Bacteria Many H (None-Few) per hpf Hyaline Casts None Seen (None-Few) per lpf Ur Culture Indicated? NO. A (NO) 12/08/17 12/08/17 Range/Units 09:26 09:41 WBC (4.3-11.1) K/mcL RBC (3.82-4.97) M/mcL Hgb (11.5-15.4) g/dL Hct (35.3-44.9) % MCV (83.0-100.0) fL MCH (28.0-33.3) pg MCHC (31.6-35.5) g/dL RDW (11.5-14.5) % Plt Count (140-400) K/mcL MPV (9.4-12.4) fL Immature Gran % (0-4) % Seg Neutrophils % % Lymphocytes % % Monocytes % % Eosinophils % % Basophils % % Neutrophils # (1.6-8.9) K/mcL Lymphocytes # (0.6-4.6) K/mcL Monocytes # (0.0-1.3) K/mcL Eosinophils # (0.0-0.6) K/mcL Basophils # (0.0-0.2) K/mcL PT 9.9 (9.4-12.1) Seconds INR 0.9 APTT 25.4 L (26.0-36.0) Seconds Sodium (136-145) mEq/L Potassium (3.5-5.1) mEq/L Chloride (98-107) mEq/L Carbon Dioxide (23-29) mEq/L BUN (6-20) mg/dL Creatinine (0.60-1.20) mg/dL Est GFR ( Amer) (> 60) Est GFR (Non-Af Amer) (> 60) BUN/Creatinine Ratio (6-26) Glucose (70-105) mg/dL Calculated Osmolality (280-300) Lactic Acid 2.4 H (0.5-2.2) mmol/L Calcium (8.6-10.3) mg/dL Total Bilirubin (0.3-1.0) mg/dL Direct Bilirubin (0.0-0.2) mg/dL Indirect Bilirubin (0.0-1.2) mg/dL AST (13-39) Units/L ALT (7-52) Units/L Alkaline Phosphatase (34-104) Units/L Serum Total Protein (6.4-8.9) g/dL Albumin (3.5-5.7) g/dL Globulin (2.4-3.5) g/dL Albumin/Globulin Ratio (1.1-2.2) Lipase (11-82) Units/L Urine Color (Yellow) Urine Clarity (Clear) Urine pH (5.0-8.0) pH Units Ur Specific [place] (1.010-1.025) Urine Protein (Neg-Trace) mg/dL Urine Glucose (UA) (Normal) mg/dL Urine Ketones (Negative) mg/dL Urine Blood (Negative) Urine Nitrite (Negative) Urine Bilirubin (Negative) Urine Urobilinogen (Normal) mg/dL Ur Leukocyte Esterase (Negative) Urine Microscopic RBC (0-3) per hpf Urine Microscopic WBC (0-3) per hpf Ur Squamous Epith Cells (None-Few) per lpf Urine Bacteria (None-Few) per hpf Hyaline Casts (None-Few) per lpf Ur Culture Indicated? (NO) - Radiology Data Radiology results reviewed: Yes I reviewed the patient's radiology results. Abdomen/Pelvis CT 12/08/17 09:15 IMPRESSION: There is severe right hydroureteronephrosis which may be related to a distal ureteral stricture within the pelvis from possible prior radiation therapy for patient's rectal cancer. There is diffuse enhancement of the urothelial lining suggesting superimposed urinary tract infection, with patchy areas of low-attenuation within the renal parenchyma which could represent developing pyelonephritis. Extensive perinephric stranding is identified on the right as well. No other acute process is identified in the abdomen or pelvis. No evidence to suggest metastatic disease. D/ / Vincent Paige MD / Vincent Paige MD Interpreting Provider: Vincent Paige MD
[2017-12-08] MEDS ORDERED: 0.9 % Sodium Chloride 1,000 ML IVC ONE ×2 (08:37→09:18)
[2017-12-08] MEDS ORDERED: *HR* FentaNYL (PF) 100 MCG/2 ML VIAL IVP ONE ×2 (08:40→15:13)
[2017-12-08 08:55] LABS: Basophils % 0.3 %; Eosinophils # 0.4 K/mcL (0.0-0.6); Hematocrit 42.7 % (35.3-44.9); Hemoglobin 14.5 g/dL (11.5-15.4); Immature Granulocytes % 0.5 % (0-4); Lymphocytes # 0.8 K/mcL (0.6-4.6); Lymphocytes % 5.9 %; Mean Corpuscular Hemoglobin 31.4 pg (28.0-33.3); Mean Corpuscular Volume 92.4 fL (83.0-100.0); Mean Platelet Volume 11.3 fL (9.4-12.4); Monocytes # 0.8 K/mcL (0.0-1.3); Monocytes % 6.4 %; Platelet Count 217 K/mcL (140-400); Red Blood Count 4.62 M/mcL (3.82-4.97); Red Cell Distribution Width 13.6 % (11.5-14.5); Segmented Neutrophils % 83.9 %
[2017-12-08 09:00] LABS: Bilirubin,Urine Negative (Negative); Blood,Urine Large (Negative); Clarity,Urine Turbid (Clear); Color,Urine Yellow (Yellow); Glucose,Urine (UA) >=1000 mg/dL (Normal); Ketones,Urine Negative (Negative); Leukocyte Esterase,Urine Moderate (Negative); Nitrite,Urine Negative (Negative); Protein,Urine >=300 mg/dL (Neg-Trace); Urobilinogen,Urine Normal (Normal)
[2017-12-08 09:04] LABS: Bacteria,Urine Many per hpf (None-Few); Hyaline Casts,Urine None Seen per lpf (None-Few); RBC,Urine TNTC per hpf (0-3); Squamous Epithelial Cell,Urine Many per lpf (None-Few); WBC,Urine TNTC per hpf (0-3)
[2017-12-08 09:12] LABS: Alanine Aminotransferase 14 Units/L (7-52); Albumin/Globulin Ratio 1.3 (1.1-2.2); Alkaline Phosphatase 88 Units/L (34-104); Aspartate Amino Transferase 10 Units/L (13-39); BUN/Creatinine Ratio 18 (6-26); Bilirubin,Direct 0.1 mg/dL (0.0-0.2); Bilirubin,Indirect 0.5 mg/dL (0.0-1.2); Bilirubin,Total 0.6 mg/dL (0.3-1.0); Blood Urea Nitrogen 17 mg/dL (6-20); Calcium 9.6 mg/dL (8.6-10.3); Carbon Dioxide 23 mEq/L (23-29); Chloride 102 mEq/L (98-107); Globulin 3.2 g/dL (2.4-3.5); Glucose 368 mg/dL (70-105); Lipase 137 Units/L (11-82); Osmolality,Calculated 295 (280-300); Potassium 3.9 mEq/L (3.5-5.1); Sodium 134 mEq/L (136-145); Total Protein 7.2 g/dL (6.4-8.9); eGFR For Non-African Americans > 60 (> 60)
[2017-12-08] MEDS ORDERED: Isovue-370 500 ML INFUS..BTL IV ONE (09:15)
[2017-12-08] MEDS ORDERED: cefTRIAXone 1,000 MG in Water for inj. (sterile) 20 ML 10 ML IVP ONE (09:17)
--- NOTE | 2017-12-08 09:42 | Emergency Department Note ---
Disposition Clinical Impression: UTI (urinary tract infection) Qualifiers: Urinary tract infection type: site unspecified Hematuria presence: with hematuria Qualified Code(s): N39.0 - Urinary tract infection, site not specified ; R31.9 - Hematuria, unspecified Sepsis Qualifiers: Sepsis type: sepsis due to unspecified organism Qualified Code(s): A41.9 - Sepsis, unspecified organism Disposition: Admitted As Inpatient Referrals: Heaven Cho DO [Primary Care Provider] - Forms: ED Satisfaction Letter, Work/School Release General Adult HPI - General Chief complaint: ED Abdominal Pain Stated complaint: Rt Flank pain Time Seen by Provider: 12/08/17 08:25 Source: patient, family Mode of arrival: ambulatory Limitations: no limitations - History of Present Illness Pain Scale: 7 - Related Data Home Medications Medication Instructions Recorded Confirmed Cholecalciferol (D-3) [Vitamin D] 1,000 unit PO DAILY 10/22/16 11/30/17 Duloxetine HCl [Cymbalta] 120 mg PO DAILY 10/22/16 11/30/17 Gabapentin [Neurontin] 600 mg PO HS 10/22/16 11/30/17 Losartan Potassium [Cozaar] 50 mg PO DAILY 10/22/16 11/30/17 Metformin HCl [Metformin HCl ER] 1,000 mg PO BID 10/22/16 11/30/17 Ferrous Sulfate [Iron] 325 mg PO DAILY 04/22/17 11/30/17 Docusate [Colace] 100 mg PO BID PRN 05/18/17 11/30/17 Exenatide [Byetta] 5 mcg SQ BID 10/05/17 11/30/17 Acetaminophen [Acetaminophen ER] 650 mg PO Q6H PRN 11/30/17 11/30/17 Albuterol Sulfate [Albuterol 2 puff IH QID PRN 11/30/17 11/30/17 Inhaler] Atorvastatin [Lipitor] 40 mg PO HS 11/30/17 11/30/17 Insulin Glargine,Hum.rec.anlog 20 unit SQ HS 11/30/17 11/30/17 [Basaglar Kwikpen U-100] Previous Rx's Medication Instructions Recorded Capecitabine [Xeloda] 1,000 mg PO BID #56 tablet 07/19/17 HYDROcodone/Acet 5/325 mg [[place] 1 tab PO Q4H PRN 5 Days #15 tab 11/30/17 5-325 mg] Allergies Allergy/AdvReac Type Severity Reaction Status Date / Time diphenhydramine Allergy Hives Verified 11/30/17 07:57 [From Benadryl] Constitutional: Reports: fever (Tactile), chills ENT ED: Denies: congestion Cardiovascular: Denies: chest pain Respiratory: Denies: cough, dyspnea Gastrointestinal: Reports: abdominal pain. Denies: nausea, vomiting, diarrhea Genitourinary: Reports: dysuria. Denies: urgency, frequency, hematuria Musculoskeletal: Reports: back pain Integumentary: Denies: rash, abrasion Neurological: Denies: headache Past Medical History - Past Medical History Medical history: Reports: asthma, cancer, coronary artery disease, diabetes, hyperlipidemia, hypertension, myocardial infarction, other Surgical history: Reports: other Psychiatric history: Reports: anxiety, depression, PTSD - Social History Smoking Status: Current every day smoker Smokeless Tobacco Status: No Alcohol use: Reports: none Drug use: Reports: none Physical Exam - General Limitations: no limitations General appearance: alert, in no apparent distress Course Vital Signs Temperature 99.7 F H 12/08/17 08:25 Pulse Rate 105 12/08/17 08:25 Respiratory Rate 16 12/08/17 08:25 Blood Pressure 174/89 12/08/17 08:25 O2 Sat by Pulse Oximetry 98 12/08/17 08:25 Temperature 99.7 F H 12/08/17 08:25 Pulse Rate 108 12/08/17 09:06 Respiratory Rate 15 12/08/17 09:06 Blood Pressure 155/67 12/08/17 09:06 O2 Sat by Pulse Oximetry 97 12/08/17 09:06 Oxygen Delivery Oxygen Delivery Room Air Medical Decision Making - Lab Data Result diagrams: 12/08/17 08:41 12/08/17 08:41 Lab Results 12/08/17 12/08/17 12/08/17 Range/Units 08:41 08:41 08:46 WBC 13.1 H (4.3-11.1) K/mcL RBC 4.62 (3.82-4.97) M/mcL Hgb 14.5 (11.5-15.4) g/dL Hct 42.7 (35.3-44.9) % MCV 92.4 (83.0-100.0) fL MCH 31.4 (28.0-33.3) pg MCHC 34.0 (31.6-35.5) g/dL RDW 13.6 (11.5-14.5) % Plt Count 217 (140-400) K/mcL MPV 11.3 (9.4-12.4) fL Immature Gran % 0.5 (0-4) % Seg Neutrophils % 83.9 % Lymphocytes % 5.9 % Monocytes % 6.4 % Eosinophils % 3.0 % Basophils % 0.3 % Neutrophils # 11.0 H (1.6-8.9) K/mcL Lymphocytes # 0.8 (0.6-4.6) K/mcL Monocytes # 0.8 (0.0-1.3) K/mcL Eosinophils # 0.4 (0.0-0.6) K/mcL Basophils # 0.0 (0.0-0.2) K/mcL Sodium 134 L (136-145) mEq/L Potassium 3.9 (3.5-5.1) mEq/L Chloride 102 (98-107) mEq/L Carbon Dioxide 23 (23-29) mEq/L BUN 17 (6-20) mg/dL Creatinine 0.94 (0.60-1.20) mg/dL Est GFR ( Amer) > 60 (> 60) Est GFR (Non-Af Amer) > 60 (> 60) BUN/Creatinine Ratio 18 (6-26) Glucose 368 H (70-105) mg/dL Calculated Osmolality 295 (280-300) Calcium 9.6 (8.6-10.3) mg/dL Total Bilirubin 0.6 (0.3-1.0) mg/dL Direct Bilirubin 0.1 (0.0-0.2) mg/dL Indirect Bilirubin 0.5 (0.0-1.2) mg/dL AST 10 L (13-39) Units/L ALT 14 (7-52) Units/L Alkaline Phosphatase 88 (34-104) Units/L Serum Total Protein 7.2 (6.4-8.9) g/dL Albumin 4.0 (3.5-5.7) g/dL Globulin 3.2 (2.4-3.5) g/dL Albumin/Globulin Ratio 1.3 (1.1-2.2) Lipase 137 H (11-82) Units/L Urine Color Yellow (Yellow) Urine Clarity Turbid A (Clear) Urine pH 6.0 (5.0-8.0) pH Units Ur Specific [place] 1.020 (1.010-1.025) Urine Protein >=300 H (Neg-Trace) mg/dL Urine Glucose (UA) >=1000 H (Normal) mg/dL Urine Ketones Negative (Negative) mg/dL Urine Blood Large H (Negative) Urine Nitrite Negative (Negative) Urine Bilirubin Negative (Negative) Urine Urobilinogen Normal (Normal) mg/dL Ur Leukocyte Esterase Moderate H (Negative) Urine Microscopic RBC TNTC H (0-3) per hpf Urine Microscopic WBC TNTC H (0-3) per hpf Ur Squamous Epith Cells Many H (None-Few) per lpf Urine Bacteria Many H (None-Few) per hpf Hyaline Casts None Seen (None-Few) per lpf Ur Culture Indicated? NO. A (NO) Attestation Statement - Attestation Attestation: I examined this patient and my medical decision-making was reviewed with the Resident Physician. I agree with the documented findings, disposition and treatment plan as described except to the extent set forth below. 57 year old female prsentse to the ED with complaints of right flank pain and has a hsitor of rectal cancer and due to radiaation therapy she has formed scar tissues around hte ureter of the right kidney which has required stent placment in May which was recentraly removed. Patient states that she has recurrent UTIs due to this and has been septic due to it. It appears that she is tachycardiac, with an elevated WBC and source being urine. We will obtain CT and then admit ot medicine. Trista an IVF started
[2017-12-08 10:49] LABS: INR 0.9; Prothrombin Time 9.9 Seconds (9.4-12.1)
[2017-12-08 10:52] LABS: Activated Partial Thrombo Time 25.4 Seconds (26.0-36.0)
--- NOTE | 2017-12-08 12:42 | Urology - Consult Note ---
<Madiha Reilly N - Last Filed: 12/08/17 14:05> Date of Encounter: 12/08/17 Time of Encounter: 11:15 - Assessment and Plan (1) Hydronephrosis, right Current Visit: Yes Status: Acute Assessment and plan: She is a 57-year-old female who presents to the emergency department with complaints of right flank pain. The patient is well-known to us and does have a confirmed right ureteral obstruction. Patient is being admitted to the hospitalist service where interventional radiology will be consulted for possible nephrostomy tube placement. (2) Sepsis Current Visit: Yes Status: Acute Assessment and plan: Patient is a 57-year-old female who presents the emergency department with severe right flank pain, urinary tract infection and several sepsis qualifiers. Blood cultures are pending. Patient has been placed on intravenous Rocephin. (3) UTI (urinary tract infection) Current Visit: Yes Status: Acute Assessment and plan: Patient is a 57-year-old female who presents the emergency department with hematuria and urinary tract infection. Patient has been placed on intravenous Rocephin and fluid resuscitation. Urology CN:HPI Consult date: 12/08/17 Reason for consult Urology: Other (Right Pyelonephritis) History of present illness: Patient is a 57-year-old female who presented to the emergency department with complaints of severe right flank pain since 299. The patient underwent a right ureteroscopic surgery with Dr. Merino on 11/30/2017. During this surgery , a right retrograde pyelogram was performed revealing a complete right ureteral obstruction. The patient is tentatively scheduled for a right nephrostomy tube placement in 5 days. The patient admits to currently experiencing nausea, hematuria, rigors, and diaphoresis. The patient denies known fever, dysuria, urinary frequency or hesitancy. Past Med Surg Social Fam HX - Past Medical History Medical history: asthma, cancer, coronary artery disease, diabetes, hyperlipidemia, hypertension, myocardial infarction, other Additional medical history: COLON CANCER, TOURETTES. CANCER TREATMENT. SMOKER. HEART STENTS X2. CAD. HTN. DM. GI ULCER. DEPRESSION Psychiatric history: anxiety, depression, PTSD - Past Surgical History Surgical History: other Additional surgical history: illeostomy 03/17/17. HEART STENTS. VULVULAR CANCER. CHOLECYSTECTOMY. COLONOSCOPY. RECTAL RESECTION WITH ILEOSTOMY. KIDNEY STENT - Social History Smoking Status: Current every day smoker Smokeless Tobacco Status: No Alcohol use: none Drug use: none - Family History Sister Living Status: Still Living Hx Family Cardiac Disorders: Yes (HTN) Hx Family Endocrine Disorder: Yes (DIABETES MELLITUS.) Father Living Status: Hx Family Cancer: Yes (pancreatic cancer) Mother Living Status: Hx Family Cardiac Disorders: Yes Hx Family Endocrine Disorder: Yes (Diabetes Mellitus) Medications and Allergies Cholecalciferol (D-3) [Vitamin D] 1,000 unit PO DAILY 10/22/16 [History] Duloxetine HCl [Cymbalta] 120 mg PO DAILY 10/22/16 [History] Gabapentin [Neurontin] 600 mg PO HS 10/22/16 [History] Losartan Potassium [Cozaar] 50 mg PO DAILY 10/22/16 [History] Metformin HCl [Metformin HCl ER] 1,000 mg PO BID 10/22/16 [History] Ferrous Sulfate [Iron] 325 mg PO DAILY 04/22/17 [History] Exenatide [Byetta] 5 mcg SQ BID 10/05/17 [History] Acetaminophen [Acetaminophen ER] 650 mg PO Q6H PRN 11/30/17 [History] Atorvastatin [Lipitor] 40 mg PO HS 11/30/17 [History] hydrOXYzine HCl [Hydroxyzine HCl] 25 mg PO HS 12/08/17 [History] 3 Allergy/AdvReac Type Severity Reaction Status Date / Time diphenhydramine Allergy Hives Verified 11/30/17 07:57 [From Benadryl] Review of Systems - Constitutional as per HPI, chills, fatigue, no fever(s) - EENT Nose, mouth and throat: no dizziness, no headache(s) - Cardiovascular no chest pain, no dyspnea - Respiratory no cough, no dyspnea - Gastrointestinal nausea, no abdominal pain, no vomiting - Genitourinary Genitourinary: flank pain, hematuria, no change in urinary stream, no difficulty urinating, no dysuria, no urinary frequency, no urinary hesitancy, no urinary incontinence, no urinary urgency - Musculoskeletal back pain, no muscle weakness - Integumentary no lesions, no rash, no swelling - Neurological no confusion, no syncope - Psychiatric no confusion Exam Initial Vital Signs Temp Pulse Resp BP Pulse Ox 99.7 F H 105 16 174/89 98 12/08/17 08:25 12/08/17 08:25 08/08/18 08:25 12/08/17 08:25 12/08/17 08:25 - General physical appearance Present: well developed, no distress, moderate pain - Eyes Present: PERRL, normal ocular movement - ENT Present: normal nares, no hearing loss. Absent: nasal discharge - Neck Present: no masses, trachea midline - Respiratory Present: normal respiratory effort - Cardiovascular Cardiovascular exam IM: RRR - Abdomen Abdomen: Present: soft, non tender - Genitourinary Present: other (right CVAT) - Integumentary Present: no rash, no abnormal pigmentation - Neurologic Present: normal coordination. Absent: disoriented, confused - Musculoskeletal Present: other (no pedal edema ) Urology Results - Labs 12/08/17 08:41 12/08/17 08:41 Abnormal lab results WBC 13.1 K/mcL (4.3-11.1) H 12/08/17 08:41 Neutrophils # 11.0 K/mcL (1.6-8.9) H 12/08/17 08:41 APTT 25.4 Seconds (26.0-36.0) L 12/08/17 09:41 Sodium 134 mEq/L (136-145) L 12/08/17 08:41 Glucose 368 mg/dL (70-105) H 12/08/17 08:41 Lactic Acid 2.4 mmol/L (0.5-2.2) H 12/08/17 09:26 AST 10 Units/L (13-39) L 12/08/17 08:41 Lipase 137 Units/L (11-82) H 12/08/17 08:41 Urine Clarity Turbid (Clear) A 12/08/17 08:46 Urine Protein >=300 mg/dL (Neg-Trace) H 12/08/17 08:46 Urine Glucose (UA) >=1000 mg/dL (Normal) H 12/08/17 08:46 Urine Blood Large (Negative) H 12/08/17 08:46 Ur Leukocyte Esterase Moderate (Negative) H 12/08/17 08:46 Urine Microscopic RBC TNTC per hpf (0-3) H 12/08/17 08:46 Urine Microscopic WBC TNTC per hpf (0-3) H 12/08/17 08:46 Ur Squamous Epith Cells Many per lpf (None-Few) H 12/08/17 08:46 Urine Bacteria Many per hpf (None-Few) H 12/08/17 08:46 Ur Culture Indicated? NO. (NO) A 12/08/17 08:46 All other labs normal. - Imaging CT scan - abdomen: report reviewed, image reviewed CT scan - pelvis: report reviewed, image reviewed Consult Discharge Plan - Plan Referrals: Heaven Cho DO [Primary Care Provider] - <Jose Mitchell - Last Filed: 12/08/17 19:41> Date of Encounter: 12/08/17 Exam Initial Vital Signs Temp Pulse Resp BP Pulse Ox 99.7 F H 105 16 174/89 98 12/08/17 08:25 12/08/17 08:25 12/08/17 08:25 12/08/17 08:25 12/08/17 08:25 Urology Results - Labs 12/08/17 08:41 08 08:41 Abnormal lab results WBC 13.1 K/mcL (4.3-11.1) H 12/08/17 08:41 Neutrophils # 11.0 K/mcL (1.6-8.9) H 12/08/17 08:41 APTT 25.4 Seconds (26.0-36.0) L 12/08/17 09:41 Sodium 134 mEq/L (136-145) L 12/08/17 08:41 Glucose 368 mg/dL (70-105) H 12/08/17 08:41 Lactic Acid 2.4 mmol/L (0.5-2.2) H 12/08/17 09:26 AST 10 Units/L (13-39) L 12/08/17 08:41 Lipase 137 Units/L (11-82) H 12/08/17 08:41 Urine Clarity Turbid (Clear) A 12/08/17 08:46 Urine Protein >=300 mg/dL (Neg-Trace) H 12/08/17 08:46 Urine Glucose (UA) >=1000 mg/dL (Normal) H 12/08/17 08:46 Urine Blood Large (Negative) H 12/08/17 08:46 Ur Leukocyte Esterase Moderate (Negative) H 12/08/17 08:46 Urine Microscopic RBC TNTC per hpf (0-3) H 12/08/17 08:46 Urine Microscopic WBC TNTC per hpf (0-3) H 18 08:46 Ur Squamous Epith Cells Many per lpf (None-Few) H 18 08:46 Urine Bacteria Many per hpf (None-Few) H 080818 08:46 Ur Culture Indicated? NO. (NO) A 12/08/17 08:46 All other labs normal. - Attending Attestation Patient seen and examined with PA. Agree with assessment and plan. Patient with right hydronephrosis and inability to place stent. Right nephrostomy tube was placed. Await urine cultures. will follow along.
[2017-12-08] MEDS ORDERED: Acetaminophen 325 MG TABLET PO PRN (13:40)
[2017-12-08] MEDS ORDERED: MORPHINE SUL Oral CONC 10 MG/0.5 ML ORAL.SYG SL PRN (13:41)
--- NOTE | 2017-12-08 13:54 | Internal Med History&Physical ---
Date of Encounter: 12/08/17 Time of Encounter: 13:00 Internal Medicine - H&P: HPI Chief complaint: R flank pain Admitted From: Home Plans for Post Hospital Care: Home History of present illness: Ms. Mckeon is a 57 year old female with past medical history of rectal cancer s/ p chemo/radiation/and surgery, diabetes, HLD, sepsis, dehydration who presents with R flak pain. Pt's and daughter at bedside. Family reports that is is /sp colorectal surgery and had an ostomy bag. Since the procedure, pt has had ostomy removed. She has also had scary to left ureter from radiation which lead to stent palcement. Stent was a placed at [facility] was reported to have been removed a few weeks ago. According to hospital records, patient underwent a right ureteroscopic surgery with Dr. Merino on 11/30/2017. During this surgery, a right retrograde pyelogram was performed revealing a complete right ureteral obstruction. Pt's daugher states she was scheduled to have nephrostomy tube placement December 13. In fact pt had an appointment with oncology today but family states her pain was too unbearable and she came [facility] instead. The pt reports hematuria, and diaphoresis. She also reports subjective chills. Denies dysuria, frequency or urinary urgency. In ED Case was discussed with urology and they agree to see in consult. WBC 13.1, Na 134, BUN 17, Cr 0.94. LA 2.4. Urine large blood, moderate leuks, WBC TNTC, many bacteria, glucose >1000, trubid, protein > 300. CTA abd and plevis CT/CT abd pelvis w iv no oral IMPRESSION: There is severe right hydroureteronephrosis which may be related to a distal ureteral stricture within the pelvis from possible prior radiation therapy for patient's rectal cancer. There is diffuse enhancement of the urothelial lining suggesting superimposed urinary tract infection, with patchy areas of low-attenuation within the renal parenchyma which could represent developing pyelonephritis. Extensive perinephric stranding is identified on the right as well. No other acute process is identified in the abdomen or pelvis. No evidence to suggest metastatic disease. CODE STATUS: FULL, needs verified Past Med Surg Social Fam HX - Past Medical History Medical history: asthma, cancer, coronary artery disease, diabetes, hyperlipidemia, hypertension, myocardial infarction, other Additional medical history: COLON CANCER, TOURETTES. CANCER TREATMENT. SMOKER. HEART STENTS X2. CAD. HTN. DM. GI ULCER. DEPRESSION Psychiatric history: anxiety, depression, PTSD - Past Surgical History Surgical History: other Additional surgical history: illeostomy 03/17/17. HEART STENTS. VULVULAR CANCER. CHOLECYSTECTOMY. COLONOSCOPY. RECTAL RESECTION WITH ILEOSTOMY. KIDNEY STENT - Social History Smoking Status: Current every day smoker Smokeless Tobacco Status: No Alcohol use: none Drug use: none - Family History Sister Living Status: Still Living Hx Family Cardiac Disorders: Yes (HTN) Hx Family Endocrine Disorder: Yes (DIABETES MELLITUS.) Father Living Status: Age at : 72 Cause of : cancer Hx Family Cancer: Yes (pancreatic cancer) Mother Living Status: Age at : 57 Cause of : heart, diabetes Hx Family Cardiac Disorders: Yes Hx Family Endocrine Disorder: Yes (Diabetes Mellitus) Internal Medicine - H&P: Meds Cholecalciferol (D-3) [Vitamin D] 1,000 unit PO DAILY 10/22/16 [History] Duloxetine HCl [Cymbalta] 120 mg PO DAILY 10/22/16 [History] Gabapentin [Neurontin] 600 mg PO HS 10/22/16 [History] Losartan Potassium [Cozaar] 50 mg PO DAILY 10/22/16 [History] Metformin HCl [Metformin HCl ER] 1,000 mg PO BID 10/22/16 [History] Ferrous Sulfate [Iron] 325 mg PO DAILY 04/22/17 [History] Exenatide [Byetta] 5 mcg SQ BID 10/05/17 [History] Acetaminophen [Acetaminophen ER] 650 mg PO Q6H PRN 11/30/17 [History] Atorvastatin [Lipitor] 40 mg PO HS 11/30/17 [History] hydrOXYzine HCl [Hydroxyzine HCl] 25 mg PO HS 12/08/17 [History] 3 Allergy/AdvReac Type Severity Reaction Status Date / Time diphenhydramine Allergy Hives Verified 11/30/17 07:57 [From Benadryl] All Systems PM: A 10-system review of systems was performed and is negative for pertinent findings except as documented above in the HPI. - Constitutional Vitals: Temp Pulse Resp BP Pulse Ox 98.4 F 107 18 127/74 95 12/08/17 12:34 12/08/17 12:34 08/08/18 12:34 12/08/17 12:34 12/08/17 12:34 General appearance: Present: A&O X 3, no acute distress - Head Head exam: Present: atraumatic, normocephalic - Eye Eye exam: Present: PERRL, conjuntiva pink, sclera anicteric Pupils: Present: PERRL - Neck Neck exam general surgery: Present: supple, trachea midline. Absent: lymphadenopathy - Respiratory Respiratory exam: Present: CTAB. Absent: accessory muscle use, rales, rhonchi, wheezes - Cardiovascular Cardiovascular exam: Present: RRR, +S1, +S2. Absent: diastolic murmur, gallop, rubs, systolic murmur - GI/Abdominal GI/Abdominal exam: Present: normal bowel sounds, soft, no peritoneal signs. Absent: distended, tenderness - Extremities Exam Extremities exam: Present: warm, radial pulses palpable and symmetrical. Absent : calf tenderness, cyanotic, pedal edema - Neurological Exam Neurological exam: Present: CN II-XII intact, oriented X3, no focal deficits. Absent: pronater drift, facial droop, speech deficit - Skin Skin exam: Present: dry, intact Internal Med - H&P Results - Labs CBC & Chem 7: 12/08/17 08:41 12/08/17 08:41 - Assessment and plan (1) Acute cystitis Current Visit: Yes Status: Acute Assessment and plan: Started on Rocephin and will continue. Will give IVF. Qualifiers: Qualified Code(s): N30.01 - Acute cystitis with hematuria (2) Hydronephrosis, right Current Visit: Yes Status: Acute Assessment and plan: Severe R hydro-ureteronephrosis. Urology on board and managing. prn pain control. (3) Ureteral stricture Current Visit: Yes Status: Acute Assessment and plan: Urology consulted to see. (4) Sepsis Current Visit: Yes Status: Acute Assessment and plan: She meets due to leukocytosis and tachycardia. Lactic acid 2.4. Will place on Rocephin and send urine for culture. Qualifiers: Sepsis type: sepsis due to unspecified organism Qualified Code(s): A41.9 - Sepsis, unspecified organism (5) Rectal cancer Current Visit: No Status: Chronic Assessment and plan: Follow up with primary onoclogist as zbigniew. (6) Type II diabetes mellitus Current Visit: Yes Status: Acute Qualifiers: Qualified Code(s): E11.9 - Type 2 diabetes mellitus without complications (7) Hyperlipidemia Current Visit: No Status: Acute Qualifiers: Hyperlipidemia type: unspecified Qualified Code(s): E78.5 - Hyperlipidemia , unspecified - Time Spent With Patient Total time spent is greater than 50% in coordination of care (as documented) at patient's floor/unit and/or counseling patient: 25 - 35 minutes
[2017-12-08] MEDS ORDERED: 0.9 % Sodium Chloride 500 ML ONE (14:46)
[2017-12-08] MEDS ORDERED: Ampicillin/Sulbactam 1,500 MG in 0.9 % Sodium Chloride Mini Bag 100 ML IVPB ONE (15:12)
--- NOTE | 2017-12-08 15:18 | Pre-Sedation Evaluation ---
Pre-sedation evaluation - Pre-sedation checklist Date of procedure: 12/08/17 Procedure: right nephrostomy Recent Vitals: Last Vital Signs Temp 98.4 F 12/08/17 12:34 Pulse 107 12/08/17 12:34 Resp 18 12/08/17 12:34 BP 127/74 12/08/17 12:34 Pulse Ox 95 12/08/17 12:34 H&P (including ROS) documented in medical record: Yes Previous reaction to sedatives/anesthetics: No Dietary Status: NPO after Midnight Airway Assessment: Patient can open mouth completely, TMJ function normal Dentition: No loose teeth or bridges Possible difficult airway: No ASA Classification *see protocol: CLASS II-Mild systemic disease Cardiac Registry (Cardio Only) - Functional Capacity - Clincal Frailty Scale
[2017-12-08] MEDS ORDERED: 0.9 % Sodium Chloride 1,000 ML ONE (15:20)
--- NOTE | 2017-12-08 15:52 | IR Procedure Note ---
Date of procedure: 12/08/17 Consent Obtained: Verbal consent, Written consent Timeout: Correct patient and procedure verified, Correct site verified, Time out performed, Skin prep completed Local anesthetic: Lidocaine 1% Indications: right hydronephrosis Procedure Performed: right nephrostomy Was there an hr administrative assistant present: No Site/Technique: right kidney Results/Findings: severe hydronephrosis Estimated blood loss (cc): 0 Complications: None; Tolerated procedure well Post Procedure Treatment Plan: drain to external bag Specimen: NA
[2017-12-08] MEDS ORDERED: *HR* Metformin 500 MG TABLET PO SCH (17:00)
[2017-12-08] MEDS ORDERED: Dextrose Gel 15 GM/37.5 ML TUBE PO PRN ×2 (21:41)
[2017-12-08] MEDS ORDERED: *HR* Dextrose 50 % in Water (Syg) 50 ML SYRINGE IVP PRN (21:41)
[2017-12-08] MEDS ORDERED: D5% in Water 1,000 ML IVC PRN (21:41)
[2017-12-08] MEDS: Gabapentin 300 MG CAPSULE PO SCH (21:49)
[2017-12-08] MEDS: hydrOXYzine pamoate 25 MG CAPSULE PO SCH (21:49)
[2017-12-08] MEDS: (Exenatide [Byetta] 5 MCG) SQ SCH (21:50)
[2017-12-08] MEDS: Insulin LISPRO 300 UNITS/3 ML VIAL SQ SCH (21:56)
[2017-12-09] MEDS: Cholecalciferol (D-3) 1,000 UNIT TABLET PO SCH (08:42)
[2017-12-09] MEDS: Insulin LISPRO 300 UNITS/3 ML VIAL SQ SCH ×4 (08:43→20:52)
[2017-12-09] MEDS: (Exenatide [Byetta] 5 MCG) SQ SCH ×2 (08:48→20:47)
--- NOTE | 2017-12-09 09:00 | Urology Progress Note ---
<Madiha Reilly N - Last Filed: 12/09/17 08:58> Date of Encounter: 12/09/17 Time of Encounter: 08:58 - Assessment and Plan (1) Hydronephrosis, right Current Visit: Yes Status: Acute Assessment and plan: Patient is a 57-year-old female with right ureteral obstruction and severe hydronephrosis. The patient has undergone right nephrostomy tube placement in interventional radiology yesterday, and states she is feeling much better. (2) Sepsis Current Visit: Yes Status: Acute Assessment and plan: Blood culture results are pending. Patient has been placed on Unasyn and Rocephin. Qualifiers: Sepsis type: sepsis due to unspecified organism Qualified Code(s): A41.9 - Sepsis, unspecified organism Progress Note Subjective: no new complaints, feels better, pain is less Narrative: Patient seen and examined lying in bed in no apparent distress. Patient states her pain is much improved. Patient denies fever, chills, diaphoresis. Objective Initial Vital Signs Temp Pulse Resp BP Pulse Ox 99.7 F H 105 16 174/89 98 12/08/17 08:25 12/08/17 08:25 12/08/17 08:25 12/08/17 08:25 12/08/17 08:25 - General physical appearance Present: well developed, no distress, no pain - Respiratory Present: normal expansion, normal respiratory effort - Abdomen Present: soft, non tender - Integumentary Present: no rash, no abnormal pigmentation - Psychiatric Present: oriented to time, oriented to person, oriented to place - Labs 12/08/17 08:41 12/08/17 08:41 - VTE Documentation of Mechanical Device: Intermittent pneumatic compression device Consult Discharge Plan - Plan Referrals: Heaven Cho DO [Primary Care Provider] - <Jose Mitchell W - Last Filed: 12/09/17 10:14> Date of Encounter: 12/09/17 Objective Initial Vital Signs Temp Pulse Resp BP Pulse Ox 99.7 F H 105 16 174/89 98 12/08/17 08:25 12/08/17 08:25 12/08/17 08:25 12/08/17 08:25 12/08/17 08:25 - Labs 12/08/17 08:41 12/08/17 08:41
--- NOTE | 2017-12-09 09:53 | Internal Med Progress Note ---
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 Stent was placed at [facility] and was removed a few weeks ago. According to hospital records, patient underwent a right ureteroscopic surgery with Dr. Merino on 11/30/2017.During this surgery, a right retrograde pyelogram was performed revealing a complete right ureteral obstruction.Thus she was scheduled to have nephrostomy tube placement on December 13. The pain become worse and she came to ED on 11/07/2017 .The pt admits hematuria, chills and diaphoresis. She denies dysuria, frequency or urinary urgency. Case was evaluated by urology team and planned for putting Nephrostomy Tube . Nephrostomy tube was placed yesterday by interventinal radiologist .Her latest Vitals : Tem 98.7 , pulse 96 ,WBC 13.1, Na 134, BUN 23, Cr 0.94. LA 2.4.Today she is feeling sleepy and complains of feeling cold/chills , she admits mild lower abdominal pain , but not too bad .Urine priliminary culture came out gram negative bacteria . We have started IV ceftriaxone . - Exam Vitals: Temp Pulse Resp BP Pulse Ox 98.7 F 96 15 124/74 91 12/09/17 06:40 12/09/17 06:40 12/09/17 06:40 12/09/17 06:40 12/09/17 06:40 - General physical appearance: Present: well developed, no distress, no pain, was sleepy ,afebrile - Respiratory and CVS : Present: normal expansion, normal respiratory effort, no rales and rhonchi Normal rate and rhythm, S1S2 normal without murmur, rub or JVD - Abdomen: Present: soft, mild tenderness in right lumbar region, no rigidity and guarding , BS + , nephrostomy tube in situ - Integumentary: Present: no rash, no abnormal pigmentation Extremities: no swelling and calf tenderness - Psychiatric: Present: oriented to time, oriented to person, oriented to place - Assessment and Plan (1) Pyelonephritis Current Visit: Yes Status: Acute Assessment and Plan: 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 ( She is case of colorectal carcinoma under treatment with chemo/ radio/ surgery She presented with chiils , fever, hematuria and pain in right lumbar region Nephrostomy tube placed todecompress hydronephrosis Urine preliminary culture : gram negative bacteria Urine routine suspicious of urinary infection Started IV antibotics : Ceftriaxone (2) Hydronephrosis Current Visit: No Status: Acute Assessment and Plan: Nephrostomy tube placed to decompress right sided hydronephosis ( 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) (3) Type II diabetes mellitus Current Visit: Yes Status: Acute Assessment and Plan: She is diabetic patient under medication She is on insulin Her latest blood glucose is 368 We are closely monitoring her blood sugar with insulin dose adjustment (4) Sepsis Current Visit: Yes Status: Acute Assessment and Plan: She feels chills/ cold Fever was present during admission Latest temp record is 98.7 F Urine routine and culture positive for infection She is on IV ceftriaxone We will closely monitor (5) HTN (hypertension) Current Visit: Yes Status: Acute Assessment and Plan: She is a case of chronic hypertension Her latest BP 124/74 She is on Losartan 50 OD - Time Spent with Patient Total time spent is greater than 50% in coordination of care (as documented) at patient's floor/unit and/or counseling patient: Internal Medicine: Result - Labs CBC & Chem 7: 12/08/17 08:41 12/08/17 08:41 - ABG Interpretation ABG results: PT/INR, D-dimer PT 9.9 Seconds (9.4-12.1) 12/08/17 09:41 - VTE Documentation of Mechanical Device: Intermittent pneumatic compression device Consult Discharge Plan - Plan Referrals: Heaven Cho DO [Primary Care Provider] - 12/15/17 9:00 am <Brayden Cason - Last Filed: 12/09/17 17:29> Hospitalist Progress Note - Encounter Date of Encounter: 12/09/17 - Exam Vitals: Temp Pulse Resp BP Pulse Ox 98.2 F 94 14 112/70 95 12/09/17 14:34 12/09/17 14:34 12/09/17 14:34 12/09/17 14:34 12/09/17 14:34 - Assessment and Plan (1) Sepsis Current Visit: Yes Status: Suspected (2) Hydronephrosis Current Visit: No Status: Acute (3) Type II diabetes mellitus Current Visit: Yes Status: Chronic (4) Pyelonephritis Current Visit: Yes Status: Acute (5) HTN (hypertension) Current Visit: Yes Status: Chronic - Time Spent with Patient Total time spent is greater than 50% in coordination of care (as documented) at patient's floor/unit and/or counseling patient: Internal Medicine: Result - Labs CBC & Chem 7: 12/08/17 08:41 12/08/17 08:41 - ABG Interpretation ABG results: PT/INR, D-dimer PT 9.9 Seconds (9.4-12.1) 12/08/17 09:41 - Attending Attestation I examined this patient and my medical decision-making was reviewed with the Resident Physician on 12/09/17. I agree with the documented findings, disposition and treatment plan as described except to the extent set forth below. Ms. Mckeon is currently admitted for acute pyelonephritis and obstruction s/p nephrostomy tube. She remains moderate to high risk due to potential for worsening clinical status. Ms Mckeon is feeling chilled and fatigued. Pain improved with nephrostomy tube. No fever noted. Urine culture with gram neg rods. Blood cx negative. No GI issues. Exam alert Moderate distress due to feeling chilled Mucus membranes dry Heart reg with no murmur Lungs diminished but clear Abd soft and nontender No edema No focal neuro deficit No rash noted. Pupils reactive. EOMI. Neck supple. I/P 1. Acute pyelonephritis - culture with gram neg roque. On Ceftriaxone. 2. Acute hydronephrosis/obstruction s/p nephrostomy tube Further diagnoses and plan as above. Anticipate d/c tomorrw. <Pamela Lester P - Last Filed: 12/09/17 16:59> (2) Hydronephrosis Qualifiers: Hydronephrosis type: with other ureteral stricture Qualified Code(s): N13.1 - Hydronephrosis with ureteral stricture, not elsewhere classified (3) Type II diabetes mellitus Qualifiers: Diabetes mellitus senior living insulin use: unspecified director long term care insulin use status Diabetes mellitus complication status: with unspecified complications Qualified Code(s): E11.8 - Type 2 diabetes mellitus with unspecified complications (4) Sepsis Qualifiers: Sepsis type: sepsis due to unspecified organism Qualified Code(s): A41.9 - Sepsis, unspecified organism <Brayden Cason A - Last Filed: 12/09/17 17:29> (1) Sepsis Qualifiers: Sepsis type: Escherichia coli Qualified Code(s): A41.51 - Sepsis due to Escherichia coli [E. coli] (2) Hydronephrosis Qualifiers: Hydronephrosis type: with other ureteral stricture Qualified Code(s): N13.1 - Hydronephrosis with ureteral stricture, not elsewhere classified (3) Type II diabetes mellitus Qualifiers: Diabetes mellitus director long term care insulin use: without senior living use Diabetes mellitus complication status: with hyperglycemia Qualified Code(s): E11.65 - Type 2 diabetes mellitus with hyperglycemia (5) HTN (hypertension) Qualifiers: Hypertension type: essential hypertension Qualified Code(s): I10 - Essential (primary) hypertension
[2017-12-09] MEDS: cefTRIAXone 1,000 MG in Water for inj. (sterile) 20 ML 10 ML IVP SCH (15:24)
[2017-12-09] MEDS: Gabapentin 300 MG CAPSULE PO SCH (20:52)
[2017-12-09] MEDS: hydrOXYzine pamoate 25 MG CAPSULE PO SCH (20:52)
[2017-12-09] MEDS ORDERED: Insulin LISPRO 300 UNITS/3 ML VIAL SQ SCH (21:00)
[2017-12-10 06:43] LABS: Hematocrit 33.8 % (35.3-44.9); Mean Corpuscular HGB Conc 33.1 g/dL (31.6-35.5); Mean Corpuscular Hemoglobin 31.1 pg (28.0-33.3); Mean Corpuscular Volume 93.9 fL (83.0-100.0); Mean Platelet Volume 11.7 fL (9.4-12.4); Platelet Count 153 K/mcL (140-400); Red Cell Distribution Width 13.2 % (11.5-14.5)
[2017-12-10 06:44] LABS: Hemoglobin 11.2 g/dL (11.5-15.4)
[2017-12-10 07:01] LABS: BUN/Creatinine Ratio 14 (6-26); Blood Urea Nitrogen 11 mg/dL (6-20); Calcium 8.9 mg/dL (8.6-10.3); Carbon Dioxide 23 mEq/L (23-29); Chloride 106 mEq/L (98-107); Glucose 175 mg/dL (70-105); Magnesium 1.7 mg/dL (1.6-2.6); Osmolality,Calculated 288 (280-300); Potassium 3.9 mEq/L (3.5-5.1); Sodium 137 mEq/L (136-145); eGFR For Non-African Americans > 60 (> 60)
--- NOTE | 2017-12-10 08:41 | Urology Progress Note ---
Date of Encounter: 12/10/17 Time of Encounter: 08:39 - Assessment and Plan (1) Hydronephrosis, right Current Visit: Yes Status: Acute Assessment and plan: Patient is a 57-year-old female with right ureteral obstruction and severe hydronephrosis. The patient has undergone right nephrostomy tube placement in interventional radiology 2 days ago. Drain output has lessened. (2) Sepsis Current Visit: Yes Status: Suspected Assessment and plan: Blood culture results are still pending. Patient has been placed on Unasyn and Rocephin. Patient remains afebrile with reassuring vital signs and WBC count. Qualifiers: Sepsis type: Escherichia coli Qualified Code(s): A41.51 - Sepsis due to Escherichia coli [E. coli] Progress Note Subjective: no new complaints, feels better, tolerating a regular diet, afebrile Narrative: Patient seen and examined lying in bed in no apparent distress. Patient is feeling well with no concerns. Tolerating normal diet. Voiding without difficulty. Labs and vitals reviewed. Denies fever, chills, significant pain, dysuria or worsening hematuria. Objective Initial Vital Signs Temp Pulse Resp BP Pulse Ox 99.7 F H 105 16 174/89 98 12/08/17 08:25 12/08/17 08:25 12/08/17 08:25 12/08/17 08:25 12/08/17 08:25 - General physical appearance Present: well developed, no distress, no pain - Respiratory Present: normal expansion, normal respiratory effort - Abdomen Present: soft, non tender - Genitourinary Present: other (nephrostomy drain scant amount of serosanguinous fluid ) - Integumentary Present: no rash, no abnormal pigmentation - Musculoskeletal Present: other (no pedal edema ) - Psychiatric Present: oriented to time, oriented to person, oriented to place, speech is normal, memory intact - Labs 12/10/17 05:59 12/10/17 05:59 Diabetes panel 12/10/17 Range/Units 05:59 Sodium 137 (136-145) mEq/L Potassium 3.9 (3.5-5.1) mEq/L Chloride 106 (98-107) mEq/L Carbon Dioxide 23 (23-29) mEq/L BUN 11 (6-20) mg/dL Creatinine 0.79 (0.60-1.20) mg/dL Glucose 175 H (70-105) mg/dL Calcium 8.9 (8.6-10.3) mg/dL Calcium panel 12/10/17 Range/Units 05:59 Calcium 8.9 (8.6-10.3) mg/dL Pituitary panel 12/10/17 Range/Units 05:59 Sodium 137 (136-145) mEq/L Potassium 3.9 (3.5-5.1) mEq/L Chloride 106 (98-107) mEq/L Carbon Dioxide 23 (23-29) mEq/L BUN 11 (6-20) mg/dL Creatinine 0.79 (0.60-1.20) mg/dL Glucose 175 H (70-105) mg/dL Calcium 8.9 (8.6-10.3) mg/dL Adrenal panel 12/10/17 Range/Units 05:59 Sodium 137 (136-145) mEq/L Potassium 3.9 (3.5-5.1) mEq/L Chloride 106 (98-107) mEq/L Carbon Dioxide 23 (23-29) mEq/L BUN 11 (6-20) mg/dL Creatinine 0.79 (0.60-1.20) mg/dL Glucose 175 H (70-105) mg/dL Calcium 8.9 (8.6-10.3) mg/dL - VTE Documentation of Mechanical Device: Intermittent pneumatic compression device Consult Discharge Plan - Plan Referrals: Heaven Cho DO [Primary Care Provider] - 12/15/17 9:00 am
--- NOTE | 2017-12-10 08:44 | Internal Med Progress Note ---
Date of Encounter: 12/10/17 Time of Encounter: 10:00 - Assessment and plan (1) Pyelonephritis Current Visit: Yes Status: Acute Assessment and plan: Nephrostomy tube in situ Fever and abdominal pain is improving Urine c/s gram negative bacilli: Ecoli sensitive to ceftriaxone She is on Ceftriaxone IV : improving gradually We will discharge oral antibiotics (2) Hydronephrosis Current Visit: No Status: Acute Assessment and plan: Decompression with Nephrostomy tube done : post radiation for Colorectal Ca complication On IV ceftriaxone antibiotics: improving Urine c/s and routine is suggestive of infection Qualifiers: Hydronephrosis type: with other ureteral stricture Qualified Code(s): N13.1 - Hydronephrosis with ureteral stricture, not elsewhere classified (3) Type II diabetes mellitus Current Visit: Yes Status: Chronic Assessment and plan: She is on Insulin Humalog Latest blood glucose 175 Improving gradually Qualifiers: Diabetes mellitus mcc insulin use: without mcc use Diabetes mellitus complication status: with hyperglycemia Qualified Code(s): E11.65 - Type 2 diabetes mellitus with hyperglycemia (4) Sepsis Current Visit: Yes Status: Suspected Qualifiers: Sepsis type: Escherichia coli Qualified Code(s): A41.51 - Sepsis due to Escherichia coli [E. 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 Stent was placed at [facility] and was removed a few weeks ago. According to hospital records, patient underwent a right ureteroscopic surgery with Dr. Merino on 11/30/2017.During this surgery, a right retrograde pyelogram was performed revealing a complete right ureter obstruction.Thus she was scheduled to have nephrostomy tube placement on December 13. The pain become worse and she came to ED on 11/07/2017 .The pt admits hematuria, chills and diaphoresis. She denies dysuria, frequency or urinary urgency. Case was evaluated by urology team and planned for putting Nephrostomy Tube . Nephrostomy tube was placed yesterday by intervention radiologist .Her Today's Vitals : Tem 98.4 ,BP 118/67 pulse 80 ,,WBC 8.0 Na 134, BUN 18, Cr 0.0.79. LA 2.4 ,Blood glucose 175. she admits mild lower abdominal pain , but not too bad .Urine preliminary culture came out gram negative bacteria . We have started IV ceftriaxone for urinary infection . She is hemodynamically stable today . After Nephrostomy tube placement patient feels better , denies fever , but minimal abdominal pain She can be discharged today , as she is improving after Nephrostomy Tube placement and IV antibiotics - Constitutional Vitals: Temp Pulse Resp BP Pulse Ox 98.2 F 80 17 118/67 96 12/10/17 07:08 12/10/17 07:08 12/10/17 07:08 12/10/17 07:08 12/10/17 07:08 General appearance: Present: A&O X 3, no acute distress, answers questions appropriately - Head Head exam: Present: atraumatic, normal inspection, normocephalic - Respiratory Additional comments: Normal chest expansion, normal air entry , no rales and rhonchi - GI/Abdominal Additional comments: Soft warm , no rigidity , guarding, no mass or visible pulsation, Bs +, nephrostomy tube in situ - Extremities Exam Additional comments: No calf swelling and no leg edema - Neurological Exam Neurological exam: Present: alert, CN II-XII intact, oriented X3, reflexes normal - Psychiatric Psychiatric exam: Present: normal affect, normal mood Internal Medicine: Result - Labs CBC & Chem 7: 12/10/17 05:59 12/10/17 05:59 Labs: Short CBC 12/10/17 Range/Units 05:59 WBC 8.0 (4.3-11.1) K/mcL Hgb 11.2 L D (11.5-15.4) g/dL Hct 33.8 L (35.3-44.9) % Plt Count 153 (140-400) K/mcL BMP 12/10/17 05:59 Sodium 137 Potassium 3.9 Chloride 106 Carbon Dioxide 23 BUN 11 Creatinine 0.79 Glucose 175 H Calcium 8.9 - ABG Interpretation ABG results: PT/INR, D-dimer PT 9.9 Seconds (9.4-12.1) 12/08/17 09:41 - VTE Documentation of Mechanical Device: Intermittent pneumatic compression device Consult Discharge Plan - Plan Referrals: Heaven Cho DO [Primary Care Provider] - 12/15/17 9:00 am
[2017-12-10] MEDS: Insulin LISPRO 300 UNITS/3 ML VIAL SQ SCH ×2 (08:48→12:30)
[2017-12-10] MEDS: cefTRIAXone 1,000 MG in Water for inj. (sterile) 20 ML 10 ML IVP SCH (08:49)
[2017-12-10] MEDS: (Exenatide [Byetta] 5 MCG) SQ SCH (08:55)
[2017-12-10] MEDS: Cholecalciferol (D-3) 1,000 UNIT TABLET PO SCH (09:28)
[2017-12-10 11:03] VITALS: BP 112/66
--- NOTE | 2017-12-10 14:12 | Discharge Summary ---
- NOTES TO OUTPATIENT PROVIDER Notes to Outpatient Provider: Pt admitted with obstructive uropathy. Received nephrostomy tube with improvement. UTI treated with abx. Date of Encounter: 12/10/17 Time of Encounter: 13:00 - Discharge Diagnosis (1) Sepsis Priority: Secondary Status: Resolved Qualifiers: Sepsis type: Escherichia coli Qualified Code(s): A41.51 - Sepsis due to Escherichia coli [E. coli] (2) Hydronephrosis Priority: Primary Status: Acute Qualifiers: Hydronephrosis type: with other ureteral stricture Qualified Code(s): N13.1 - Hydronephrosis with ureteral stricture, not elsewhere classified (3) Type II diabetes mellitus Priority: Secondary Status: Chronic Qualifiers: Diabetes mellitus assisted insulin use: without intermodal owner operator truck driver use Diabetes mellitus complication status: with hyperglycemia Qualified Code(s): E11.65 - Type 2 diabetes mellitus with hyperglycemia (4) Pyelonephritis Priority: Secondary Status: Acute (5) HTN (hypertension) Priority: Secondary Status: Chronic Qualifiers: Hypertension type: essential hypertension Qualified Code(s): I10 - Essential (primary) hypertension (6) Tobacco abuse Priority: Secondary Status: Chronic Hospital course: Ms. Mckeon is a 57 year old female with hx of colon cancer presented to ED with R flank pain. She had obstructive uropathy with hydronephrosis and was admitted. Ms Mckeon was admitted to med surg. She had nephrostomy tube placed. She continued to have chills and weakness and was started on IV abx. Culture grew E coli in urine. She had improvement in pain and other symptoms. Today she is afebrile and ready for discharge home. Discharge discussed with: patient - Time Spent with Patient Total time spent providing and/or coordinating discharge services: 41min - Discharge Medications Prescriptions: Cefdinir [Omnicef] 300 mg PO BID #14 capsule Home Medications: Cholecalciferol (D-3) [Vitamin D] 1,000 unit PO DAILY 10/22/16 [History] Duloxetine HCl [Cymbalta] 60 mg PO BID 10/22/16 [History] Gabapentin [Neurontin] 600 mg PO HS 10/22/16 [History] Losartan Potassium [Cozaar] 50 mg PO DAILY 10/22/16 [History] Metformin HCl [Metformin HCl ER] 1,000 mg PO BID 10/22/16 [History] Ferrous Sulfate [Iron] 325 mg PO DAILY 04/22/17 [History] Exenatide [Byetta] 5 mcg SQ BID 10/05/17 [History] Acetaminophen [Acetaminophen ER] 650 mg PO Q6H PRN 11/30/17 [History] Atorvastatin [Lipitor] 40 mg PO HS 11/30/17 [History] hydrOXYzine HCl [Hydroxyzine HCl] 25 mg PO HS 12/08/17 [History] Cefdinir [Omnicef] 300 mg PO BID #14 capsule 12/10/17 [Rx] Allergies/Adverse Reactions: 3 Allergy/AdvReac Type Severity Reaction Status Date / Time diphenhydramine Allergy Hives Verified 11/30/17 07:57 [From Benadryl] Date of admission: 12/08/17 14:18 Primary care physician: Heaven Cho DO Discharging clinician: Brayden Cason Anticipated date of discharge: 12/10/17 - Constitutional Vitals: Temp Pulse Resp BP Pulse Ox 97.9 F 90 17 112/66 99 12/10/17 11:01 12/10/17 11:01 12/10/17 11:01 12/10/17 11:01 12/10/17 11:01 General appearance: Present: A&O X 3, answers questions appropriately - Head Head exam: Present: normocephalic - Eye Eye exam: Present: EOMI, conjuntiva pink - ENT ENT exam: Present: mucous membranes moist - Respiratory Respiratory exam: Present: CTAB. Absent: rales, rhonchi, wheezes - Cardiovascular Cardiovascular exam: Present: RRR. Absent: tachycardia - GI/Abdominal GI/Abdominal exam: Present: soft. Absent: tenderness - Extremities Exam Extremities exam: Present: warm. Absent: tenderness - Neurological Exam Neurological exam: Present: alert, oriented X3, no focal deficits - Skin Skin exam: Present: dry, warm - Patient Status Disposition: Home, Self-Care Condition: Good Functional capacity at discharge: independent ambulation Overall status at discharge: patient is progressing back to baseline - Discharge Instructions Instructions: Nephrostomy Tube Care (DC), Hydronephrosis (DC) Follow Up With: Heaven Cho DO [Primary Care Provider] - 12/15/17 9:00 am Jose Mitchell MD [Partnered Physician] - 12/13/17 9:15 am - Diet and Activity Activity: increase activity as tolerated Diet: advance to your usual diet - VTE Documentation of Mechanical Device: Intermittent pneumatic compression device
== END 2017-12-10 15:16 | disposition home or self-care (01) | DRG 720 ==
LOC: EMEROO 08:21 → 3ANU 08:21 → SUATTDRO 14:18
PROVIDERS: ADMIT Internal Medicine; ATTEND Internal Medicine

== ENCOUNTER 2019-05-13 00:56 | Inpatient (IN) ==
[2019-05-13 02:07] LABS: Prothrombin Time 11.6 Seconds (9.4-12.1)
[2019-05-13 02:08] LABS: Basophils % 0.3 %; Eosinophils # 0.2 K/mcL (0.0-0.6); Eosinophils % 2.3 %; Hematocrit 39.2 % (35.3-44.9); Immature Granulocytes % 0.5 % (0-4); Lymphocytes # 0.3 K/mcL (0.6-4.6); Lymphocytes % 3.9 %; Mean Corpuscular HGB Conc 33.2 g/dL (31.6-35.5); Mean Corpuscular Hemoglobin 30.7 pg (28.0-33.3); Mean Corpuscular Volume 92.5 fL (83.0-100.0); Mean Platelet Volume 12.1 fL (9.4-12.4); Monocytes # 0.3 K/mcL (0.0-1.3); Monocytes % 4.4 %; Neutrophils # 6.8 K/mcL (1.6-8.9); Platelet Count 195 K/mcL (140-400); Red Blood Count 4.24 M/mcL (3.82-4.97); Red Cell Distribution Width 14.4 % (11.5-14.5); Segmented Neutrophils % 88.6 %; White Blood Count 7.7 K/mcL (4.3-11.1)
[2019-05-13 02:19] LABS: VBG Ionized Calcium 1.15 mmol/L (1.15-1.35)
[2019-05-13] MEDS ORDERED: 0.9 % Sodium Chloride 1,000 ML IVC ONE (02:19)
[2019-05-13 02:24] LABS: Alanine Aminotransferase 18 Units/L (7-52); Albumin 3.9 g/dL (3.5-5.7); Albumin/Globulin Ratio 1.2 (1.1-2.2); Alkaline Phosphatase 79 Units/L (34-104); Aspartate Amino Transferase 15 Units/L (13-39); BUN/Creatinine Ratio 16 (6-26); Bilirubin,Total 0.7 mg/dL (0.3-1.0); Blood Urea Nitrogen 16 mg/dL (6-20); Calcium 9.3 mg/dL (8.6-10.3); Carbon Dioxide 24 mEq/L (23-29); Chloride 103 mEq/L (98-107); Creatine Kinase 35 Units/L (30-223); Globulin 3.2 g/dL (2.4-3.5); Glucose 172 mg/dL (70-105); Magnesium 1.6 mg/dL (1.6-2.6); Osmolality,Calculated 287 (280-300); Phosphorous 3.7 mg/dL (2.7-4.5); Potassium 3.7 mEq/L (3.5-5.1); Sodium 136 mEq/L (136-145); Total Protein 7.1 g/dL (6.4-8.9); Troponin I < 0.03 ng/mL (< 0.04); eGFR For African Americans > 60 (> 60); eGFR For Non-African Americans 56 (> 60)
[2019-05-13 02:27] LABS: Bilirubin,Urine Negative (Negative); Blood,Urine Small (Negative); Clarity,Urine Cloudy (Clear); Color,Urine Yellow (Yellow); Glucose,Urine (UA) Normal (Normal); Ketones,Urine Negative (Negative); Leukocyte Esterase,Urine Large (Negative); Nitrite,Urine Negative (Negative); Protein,Urine 30 mg/dL (Neg-Trace); Urobilinogen,Urine Normal (Normal)
[2019-05-13 02:30] LABS: Bacteria,Urine Many per hpf (None-Few); Hyaline Casts,Urine Few per lpf (None-Few); RBC,Urine 30-50 per hpf (0-3); Squamous Epithelial Cell,Urine Many per lpf (None-Few); WBC,Urine 50-100 per hpf (0-3)
[2019-05-13 02:37] LABS: Thyroid Stimulating Hormone 0.971 mcIU/mL (0.340-5.600)
[2019-05-13] MEDS ORDERED: cefTRIAXone 1,000 MG in 0.9 % Sodium Chloride Mini Bag 100 ML IVPB ONE (02:40)
[2019-05-13] MEDS ORDERED: Naloxone 0.4 MG/ML INJ IVP PRN (07:17)
[2019-05-13] MEDS ORDERED: Ondansetron 4 MG/2 ML VIAL IVP PRN (07:17)
[2019-05-13] MEDS ORDERED: D5% in Water 1,000 ML IVC PRN (07:20)
[2019-05-13] MEDS ORDERED: Dextrose Gel 15 GM/37.5 ML TUBE PO PRN ×2 (07:20)
[2019-05-13] MEDS ORDERED: *HR* Dextrose 50 % in Water (Syg) 50 ML SYRINGE IVP PRN (07:20)
[2019-05-13 08:27] LABS: Basophils % 0.5 %; Eosinophils % 0.7 %; Hematocrit 37.5 % (35.3-44.9); Hemoglobin 12.3 g/dL (11.5-15.4); Immature Granulocytes % 0.5 % (0-4); Lymphocytes # 0.3 K/mcL (0.6-4.6); Lymphocytes % 4.4 %; Mean Corpuscular HGB Conc 32.8 g/dL (31.6-35.5); Mean Corpuscular Hemoglobin 30.2 pg (28.0-33.3); Mean Corpuscular Volume 92.1 fL (83.0-100.0); Mean Platelet Volume 11.9 fL (9.4-12.4); Monocytes # 0.3 K/mcL (0.0-1.3); Monocytes % 4.6 %; Platelet Count 173 K/mcL (140-400); Red Blood Count 4.07 M/mcL (3.82-4.97); Red Cell Distribution Width 14.5 % (11.5-14.5); Segmented Neutrophils % 89.3 %; White Blood Count 5.7 K/mcL (4.3-11.1)
[2019-05-13 08:47] LABS: BUN/Creatinine Ratio 16 (6-26); Blood Urea Nitrogen 16 mg/dL (6-20); Calcium 8.8 mg/dL (8.6-10.3); Carbon Dioxide 22 mEq/L (23-29); Chloride 104 mEq/L (98-107); Glucose 218 mg/dL (70-105); Osmolality,Calculated 290 (280-300); Potassium 3.7 mEq/L (3.5-5.1); Sodium 136 mEq/L (136-145); eGFR For African Americans > 60 (> 60); eGFR For Non-African Americans 55 (> 60)
[2019-05-13] MEDS: Insulin LISPRO 300 UNITS/3 ML VIAL SQ SCH ×3 (08:53→16:51)
[2019-05-13] MEDS ORDERED: Acetaminophen IV 1,000 MG/100 ML INFUS..BTL IVPB ONE (10:49)
[2019-05-13] MEDS: Aspirin Enteric Coated 81 MG Tablet PO SCH ×2 (11:48→11:56)
[2019-05-13] MEDS: Cholecalciferol (D-3) 1,000 UNIT (25MCG) TABLET PO SCH ×2 (11:49→11:59)
[2019-05-13] MEDS: 0.9 % Sodium Chloride 1,000 ML IVC SCH (15:24)
[2019-05-13] MEDS: cefTRIAXone 1,000 MG in Water for inj. (sterile) 10 ML IVP SCH (15:25)
[2019-05-13] MEDS: *HR* Heparin 5,000 UNIT/ML VIAL SQ SCH (18:08)
[2019-05-13] MEDS: Gabapentin 300 MG CAPSULE PO SCH (20:00)
[2019-05-13] MEDS: hydrOXYzine pamoate 25 MG CAPSULE PO SCH (20:00)
[2019-05-13] MEDS ORDERED: Acetaminophen IV 500 MG/50 ML INFUS..BTL IVPB ONE (20:28)
[2019-05-14] MEDS: 0.9 % Sodium Chloride 1,000 ML IVC SCH (01:46)
[2019-05-14 02:35] LABS: Hematocrit 36.4 % (35.3-44.9); Hemoglobin 11.6 g/dL (11.5-15.4); Mean Corpuscular HGB Conc 31.9 g/dL (31.6-35.5); Mean Corpuscular Hemoglobin 30.2 pg (28.0-33.3); Mean Corpuscular Volume 94.8 fL (83.0-100.0); Mean Platelet Volume 11.6 fL (9.4-12.4); Platelet Count 143 K/mcL (140-400); Red Blood Count 3.84 M/mcL (3.82-4.97); Red Cell Distribution Width 14.4 % (11.5-14.5)
[2019-05-14 02:55] LABS: BUN/Creatinine Ratio 16 (6-26); Blood Urea Nitrogen 16 mg/dL (6-20); Calcium 8.6 mg/dL (8.6-10.3); Carbon Dioxide 21 mEq/L (23-29); Chloride 108 mEq/L (98-107); Glucose 122 mg/dL (70-105); Osmolality,Calculated 290 (280-300); Potassium 3.5 mEq/L (3.5-5.1); Sodium 139 mEq/L (136-145); eGFR For African Americans > 60 (> 60); eGFR For Non-African Americans 58 (> 60)
[2019-05-14 02:59] LABS: Adenovirus Not Detected (Not Detect); Coronavirus 229E Not Detected (Not Detect); Coronavirus HKU1 Not Detected (Not Detect); Coronavirus NL63 Not Detected (Not Detect); Coronavirus OC43 Not Detected (Not Detect); Human Metapneumovirus Not Detected (Not Detect); Human Rhinovirus/Enterovirus Not Detected (Not Detect)
[2019-05-14 03:02] LABS: Bordetella Pertussis Not Detected (Not Detect); Chlamydophila pneumoniae Not Detected (Not Detect); Influenza A Subtype 2009 H1 DETECTED (Not Detect); Influenza B Not Detected (Not Detect); Mycoplasma pneumoniae Not Detected (Not Detect); Parainfluenza Virus 1 Not Detected (Not Detect); Parainfluenza Virus 2 Not Detected (Not Detect); Parainfluenza Virus 3 Not Detected (Not Detect); Parainfluenza Virus 4 Not Detected (Not Detect); Respiratory Syncytial Virus Not Detected (Not Detect)
[2019-05-14] MEDS: *HR* Heparin 5,000 UNIT/ML VIAL SQ SCH ×2 (05:09→18:13)
[2019-05-14] MEDS ORDERED: Acetaminophen IV 1,000 MG/100 ML INFUS..BTL IVPB ONE (07:31)
[2019-05-14] MEDS: Insulin LISPRO 300 UNITS/3 ML VIAL SQ SCH ×3 (07:32→16:56)
[2019-05-14] MEDS: cefTRIAXone 1,000 MG in Water for inj. (sterile) 10 ML IVP SCH (07:37)
[2019-05-14] MEDS: Aspirin Enteric Coated 81 MG Tablet PO SCH (07:39)
[2019-05-14] MEDS: Cholecalciferol (D-3) 1,000 UNIT (25MCG) TABLET PO SCH (07:39)
[2019-05-14] MEDS: Piperacillin/Tazobactam 3.375 GM in 0.9 % Sodium Chloride Mini Bag 100 ML IVPB SCH ×3 (08:17→23:17)
[2019-05-14] MEDS: Gabapentin 300 MG CAPSULE PO SCH (20:35)
[2019-05-14] MEDS: hydrOXYzine pamoate 25 MG CAPSULE PO SCH (20:36)
[2019-05-15 02:32] LABS: Hemoglobin 13.1 g/dL (11.5-15.4); Mean Corpuscular Volume 96.1 fL (83.0-100.0); Red Cell Distribution Width 14.5 % (11.5-14.5)
[2019-05-15 02:34] LABS: Hematocrit 41.4 % (35.3-44.9); Immature Platelets 6.6 % (1.1-6.1); Mean Corpuscular HGB Conc 31.6 g/dL (31.6-35.5); Mean Corpuscular Hemoglobin 30.4 pg (28.0-33.3); Mean Platelet Volume 12.8 fL (9.4-12.4); Red Blood Count 4.31 M/mcL (3.82-4.97); White Blood Count 2.2 K/mcL (4.3-11.1)
[2019-05-15 03:24] LABS: BUN/Creatinine Ratio 16 (6-26); Blood Urea Nitrogen 16 mg/dL (6-20); Calcium 8.5 mg/dL (8.6-10.3); Carbon Dioxide 17 mEq/L (23-29); Chloride 110 mEq/L (98-107); Glucose 93 mg/dL (70-105); Osmolality,Calculated 287 (280-300); Potassium 4.3 mEq/L (3.5-5.1); Sodium 138 mEq/L (136-145); eGFR For African Americans > 60 (> 60); eGFR For Non-African Americans 55 (> 60)
[2019-05-15] MEDS: *HR* Heparin 5,000 UNIT/ML VIAL SQ SCH (05:17)
[2019-05-15] MEDS: Insulin LISPRO 300 UNITS/3 ML VIAL SQ SCH ×3 (08:35→18:07)
[2019-05-15] MEDS: Aspirin Enteric Coated 81 MG Tablet PO SCH (11:47)
[2019-05-15] MEDS: Piperacillin/Tazobactam 3.375 GM in 0.9 % Sodium Chloride Mini Bag 100 ML IVPB SCH (11:48)
[2019-05-15] MEDS: Cholecalciferol (D-3) 1,000 UNIT (25MCG) TABLET PO SCH (11:48)
[2019-05-15 16:52] LABS: Adenovirus F 40/41 PCR Not detected (Not detect); Astrovirus PCR Not detected (Not detect); C.difficile Toxin A/B Gene PCR Not detected (Not detect); Campylobacter by PCR Not detected (Not detect); Cryptosporidium by PCR Not detected (Not detect); Cyclospora cayetanensis PCR Not detected (Not detect); E. coli O157 by PCR Not detected (Not detect); Entamoeba histolytica PCR Not detected (Not detect); Enteroaggregative E.coli(EAEC) Not detected (Not detect); Enteropathogenic E.coli(EPEC) Not detected (Not detect); Enterotoxigenic E.coli (ETEC) Not detected (Not detect); Giardia lamblia PCR Not detected (Not detect); Norovirus GI/GII PCR Not detected (Not detect); Plesiomonas shigelloides PCR Not detected (Not detect); Rotavirus A PCR Not detected (Not detect); Salmonella PCR Not detected (Not detect); Sapovirus PCR Not detected (Not detect); Shig/EnteroinvasiveE coli EIEC Not detected (Not detect); Shigalike tox-prod E coli STEC Not detected (Not detect); Vibrio PCR Not detected (Not detect); Vibrio cholerae PCR Not detected (Not detect); Yersinia enterocolitica PCR Not detected (Not detect)
[2019-05-15] MEDS ORDERED: cefTRIAXone 1,000 MG in Water for inj. (sterile) 10 ML IVP SCH (18:00)
[2019-05-15] MEDS: hydrOXYzine pamoate 25 MG CAPSULE PO SCH (19:47)
[2019-05-15] MEDS: Gabapentin 300 MG CAPSULE PO SCH (19:47)
[2019-05-15] MEDS ORDERED: Benzonatate 100 MG CAPSULE PO PRN (20:29)
[2019-05-15] MEDS ORDERED: GuaiFENesin Liq 200 MG/10 ML UDC PO PRN (20:29)
[2019-05-16 05:10] LABS: Basophils % 0.6 %; Eosinophils # 0.1 K/mcL (0.0-0.6); Eosinophils % 3.5 %; Hematocrit 37.2 % (35.3-44.9); Immature Granulocytes % 0.3 % (0-4); Lymphocytes # 0.7 K/mcL (0.6-4.6); Lymphocytes % 23.5 %; Mean Corpuscular HGB Conc 32.3 g/dL (31.6-35.5); Mean Corpuscular Hemoglobin 30.1 pg (28.0-33.3); Mean Corpuscular Volume 93.2 fL (83.0-100.0); Mean Platelet Volume 11.9 fL (9.4-12.4); Monocytes # 0.4 K/mcL (0.0-1.3); Monocytes % 11.9 %; Neutrophils # 1.9 K/mcL (1.6-8.9); Platelet Count 151 K/mcL (140-400); Red Blood Count 3.99 M/mcL (3.82-4.97); Red Cell Distribution Width 14.3 % (11.5-14.5); Segmented Neutrophils % 60.2 %; White Blood Count 3.1 K/mcL (4.3-11.1)
[2019-05-16 05:42] LABS: BUN/Creatinine Ratio 17 (6-26); Blood Urea Nitrogen 16 mg/dL (6-20); Calcium 8.7 mg/dL (8.6-10.3); Carbon Dioxide 22 mEq/L (23-29); Chloride 107 mEq/L (98-107); Glucose 174 mg/dL (70-105); Osmolality,Calculated 291 (280-300); Sodium 138 mEq/L (136-145); eGFR For African Americans > 60 (> 60); eGFR For Non-African Americans > 60 (> 60)
[2019-05-16 07:11] VITALS: BP 123/71
[2019-05-16] MEDS: Aspirin Enteric Coated 81 MG Tablet PO SCH (08:52)
[2019-05-16] MEDS: Insulin LISPRO 300 UNITS/3 ML VIAL SQ SCH (08:52)
[2019-05-16] MEDS: Cholecalciferol (D-3) 1,000 UNIT (25MCG) TABLET PO SCH (08:52)
== END 2019-05-16 12:10 | disposition home or self-care (01) | DRG 720 ==
LOC: EMEROOARM 00:56 → 3ANU 00:56 → SUATTDRO 05:37 → 3ANU 06:18
PROVIDERS: ADMIT Family Medicine; ATTEND Internal Medicine

== ENCOUNTER 2021-07-05 19:56 | Observation (INO) ==
[2021-07-05 21:31] LABS: Basophils # 0.1 K/mcL (0.0-0.2); Basophils % 0.5 %; Eosinophils # 0.3 K/mcL (0.0-0.6); Eosinophils % 2.8 %; Hematocrit 39.7 % (35.3-44.9); Hemoglobin 12.4 g/dL (11.5-15.4); Immature Granulocytes % 0.5 % (0-4); Lymphocytes # 1.6 K/mcL (0.6-4.6); Mean Corpuscular HGB Conc 31.2 g/dL (31.6-35.5); Mean Corpuscular Hemoglobin 27.4 pg (28.0-33.3); Mean Corpuscular Volume 87.6 fL (83.0-100.0); Mean Platelet Volume 12.3 fL (9.4-12.4); Monocytes # 0.7 K/mcL (0.0-1.3); Monocytes % 6.4 %; Neutrophils # 7.8 K/mcL (1.6-8.9); Platelet Count 306 K/mcL (140-400); Red Blood Count 4.53 M/mcL (3.82-4.97); Segmented Neutrophils % 74.8 %; White Blood Count 10.4 K/mcL (4.3-11.1)
[2021-07-05 21:41] LABS: Alanine Aminotransferase 9 Units/L (7-52); Albumin 3.8 g/dL (3.5-5.7); Albumin/Globulin Ratio 1.2 (1.1-2.2); Alkaline Phosphatase 73 Units/L (34-104); Aspartate Amino Transferase 10 Units/L (13-39); BUN/Creatinine Ratio 16 (6-26); Bilirubin,Total 0.4 mg/dL (0.3-1.0); Blood Urea Nitrogen 16 mg/dL (6-20); Calcium 9.4 mg/dL (8.6-10.3); Carbon Dioxide 20 mEq/L (23-29); Chloride 103 mEq/L (98-107); Globulin 3.1 g/dL (2.4-3.5); Glucose 189 mg/dL (70-105); Osmolality,Calculated 286 (280-300); Potassium 4.2 mEq/L (3.5-5.1); Sodium 135 mEq/L (136-145); Total Protein 6.9 g/dL (6.4-8.9); Troponin I < 0.03 ng/mL (< 0.04); eGFR For African Americans > 60 (> 60); eGFR For Non-African Americans 59 (> 60)
[2021-07-05] MEDS ORDERED: 0.9 % Sodium Chloride 500 ML IVC ONE (22:00)
[2021-07-05] MEDS ORDERED: *HR* HYDROcodone/Acet 5/325 mg TABLET PO PRN (23:12)
[2021-07-05] MEDS ORDERED: *HR* OxyCODONE Immed Rel 5 MG TABLET PO PRN (23:12)
[2021-07-05] MEDS ORDERED: Acetaminophen 325 MG TABLET PO PRN (23:12)
[2021-07-05] MEDS ORDERED: Naloxone 0.4 MG/ML INJ IVP PRN (23:12)
[2021-07-05] MEDS ORDERED: Perflutren Lipid Microsphere 1.3 ML in 0.9 % Sodium Chloride 8.7 ML IVP PRN (23:15)
[2021-07-06] MEDS: 0.9 % Sodium Chloride 1,000 ML IVC SCH ×2 (01:01→21:01)
[2021-07-06 01:02] LABS: Hematocrit 38.8 % (35.3-44.9); Hemoglobin 12.7 g/dL (11.5-15.4); Mean Corpuscular HGB Conc 32.7 g/dL (31.6-35.5); Mean Corpuscular Hemoglobin 28.5 pg (28.0-33.3); Mean Corpuscular Volume 87.2 fL (83.0-100.0); Mean Platelet Volume 12.2 fL (9.4-12.4); Platelet Count 335 K/mcL (140-400); Red Blood Count 4.45 M/mcL (3.82-4.97); White Blood Count 11.7 K/mcL (4.3-11.1)
[2021-07-06] MEDS: Nicotine 21 MG PATCH.TD24 TD SCH ×2 (01:02→08:32)
[2021-07-06 01:09] LABS: INR 0.9; Prothrombin Time 10.3 Seconds (9.4-12.1)
[2021-07-06 01:12] LABS: Activated Partial Thrombo Time 29.7 Seconds (26.0-36.0)
[2021-07-06 01:18] LABS: BUN/Creatinine Ratio 15 (6-26); Blood Urea Nitrogen 15 mg/dL (6-20); Calcium 9.6 mg/dL (8.6-10.3); Carbon Dioxide 22 mEq/L (23-29); Chloride 105 mEq/L (98-107); Chol/HDL Ratio 3.6 (0-4.9); Cholesterol 115 mg/dL (< 200); Glucose 191 mg/dL (70-105); HDL Cholesterol 32 mg/dL (40-59); LDL Cholesterol,Calculated 36 mg/dL (< 100); Magnesium 1.8 mg/dL (1.6-2.6); Osmolality,Calculated 290 (280-300); Phosphorous 3.5 mg/dL (2.7-4.5); Potassium 4.1 mEq/L (3.5-5.1); Sodium 137 mEq/L (136-145); Triglycerides 233 mg/dL (< 150); eGFR For African Americans > 60 (> 60); eGFR For Non-African Americans 58 (> 60)
[2021-07-06 05:39] LABS: Thyroid Stimulating Hormone 1.416 mcIU/mL (0.340-5.600)
[2021-07-06 10:08] LABS: Estimated Average Glucose 194 mg/dl; Hemoglobin A1C 8.4 %
[2021-07-06] MEDS ORDERED: Isovue-370 500 ML BOTTLE IVP ONE (14:07)
[2021-07-06] MEDS ORDERED: Dextrose 4 GM Chewable Tablets PO PRN ×2 (14:09)
[2021-07-06] MEDS ORDERED: *HR* Dextrose 50 % in Water (Syg) 50 ML SYRINGE IVP PRN (14:09)
[2021-07-06] MEDS ORDERED: D5% in Water 1,000 ML IVC PRN (14:09)
[2021-07-06 17:20] LABS: Bilirubin,Urine Negative (Negative); Blood,Urine Negative (Negative); Clarity,Urine Turbid (Clear); Color,Urine Light-Yellow (Yellow); Glucose,Urine (UA) 30 mg/dL (Normal); Ketones,Urine Negative (Negative); Leukocyte Esterase,Urine Large (Negative); Mucus,Urine Few per lpf (None-Few); Nitrite,Urine Negative (Negative); Protein,Urine Trace mg/dL (Neg-Trace); Squamous Epithelial Cell,Urine Few per hpf (None-Few); Urobilinogen,Urine Normal (Normal); WBC,Urine TNTC per hpf (0-3)
[2021-07-06] MEDS: Insulin LISPRO 300 UNITS/3 ML VIAL SUBQ SCH (17:49)
[2021-07-06] MEDS ORDERED: Gabapentin 300 MG CAPSULE PO SCH (21:00)
[2021-07-06] MEDS ORDERED: Cholecalciferol (D-3) 1,000 UNIT (25MCG) TABLET PO SCH (21:00)
[2021-07-06] MEDS ORDERED: Insulin LISPRO 300 UNITS/3 ML VIAL SUBQ SCH (21:00)
[2021-07-06] MEDS ORDERED: Insulin DETEMIR 100 UNIT/ML X5UNITS SUBQ SCH (21:00)
[2021-07-06] MEDS: cilostazoL 100 MG TABLET PO SCH (21:34)
[2021-07-07 06:30] VITALS: O2SAT 96
[2021-07-07] MEDS: Insulin LISPRO 300 UNITS/3 ML VIAL SUBQ SCH ×3 (08:34→17:26)
[2021-07-07] MEDS: Nicotine 21 MG PATCH.TD24 TD SCH (08:39)
[2021-07-07] MEDS ORDERED: cefTRIAXone 1,000 MG in 0.9 % Sodium Chloride 10 ML IVPB SCH (09:00)
[2021-07-07] MEDS ORDERED: Aspirin Enteric Coated 81 MG Tablet PO SCH (09:00)
[2021-07-07] MEDS: cilostazoL 100 MG TABLET PO SCH (10:36)
[2021-07-07 14:56] VITALS: BP 148/74; PULSE 88; TEMP 97.9
== END 2021-07-07 19:00 | disposition home or self-care (01) ==
LOC: 3BNU 19:56 → EMEROOARM 19:56 → SUATTDRO 23:14 → 3BNU 07-06
PROVIDERS: ADMIT Internal Medicine; ATTEND Registered Nurse